=== PATIENT | female | born 1955 | race Caucasian/White ===

== ENCOUNTER 2021-07-01 15:07 | Emergency (ER) | payer BC ==
[~2021-07-01] VITALS: Ht 160 cm; Wt 63.5 kg
[2021-07-01 17:29] LABS: Urine Bacteria MANY /hpf (None Seen); Urine Blood Negative /uL (Negative); Urine Specific Gravity 1.004 (1.001-1.035); Urine WBC 6 /hpf (0 - 5)
[2021-07-01] MEDS ORDERED: TETANUS-DIPTH-ACEL PERTUSSIS 0.5ML SYR Tdap IM ONE (18:45)
[2021-07-01 20:07] LABS: Eosinophils # (auto) 0.1 10 ^3/uL (0-0.8); Hemoglobin 13.8 g/dL (12.2-16.2); Monocytes # (auto) 0.3 10 ^3/uL (0-1.3); Nucleated Red Blood Cells % 0.1 %; Red Blood Cells 3.97 10^6/uL (4.0-5.20)
[2021-07-01 20:09] LABS: Basophils # (auto) 0.3 10 ^3/uL (0-0.2); Basophils % (auto) 5.1 % (0.0-2.0); Eosinophils % (auto) 1.3 % (0.0-7.0); Hematocrit 40.7 % (36.0-46.0); Lymphocytes # (auto) 1.8 10 ^3/uL (0.4-5.4); Lymphocytes % (auto) 30.3 % (10.0-50.0); Mean Corpuscular Hemoglobin 34.8 pg (28.0-32.0); Mean Corpuscular Volume 102.5 fL (80.0-100.0); Monocytes % (auto) 4.9 % (0.0-12.0); Neutrophils # (auto) 3.5 10 ^3/uL (1.6-8.6); Neutrophils % (auto) 58.4 % (37.0-80.0); Red Cell Distribution Width 14.7 % (11.8-14.3); White Blood Cell 5.9 10^3/uL (4.4-10.8)
[2021-07-01 20:24] LABS: Albumin 2.9 g/dL (3.4-5.0); Calcium 9.4 mg/dL (8.5-10.1); Magnesium 2.2 mg/dL (1.6-2.6); Potassium 4.8 mmol/L (3.5-5.1)
[2021-07-01 20:26] LABS: BUN/Creatinine Ratio 12.5
[2021-07-01 20:29] LABS: Bilirubin, Total 0.3 mg/dL (0.2-1.0); Total Protein 6.8 g/dL (6.4-8.2)
[2021-07-01 21:00] VITALS: BP 157/92
[2021-07-01] MEDS ORDERED: cefTRIAXone 1GM/50ML D5W 50 ML IV ONE (21:15)
== END 2021-07-01 22:26 | disposition left against medical advice (07) ==
LOC: EDBD 15:07 → ER 15:20
DX: S01.01XA Laceration without foreign body of scalp, initial encounter (principal); R55 Syncope and collapse; N39.0 Urinary tract infection, site not specified; E78.5 Hyperlipidemia, unspecified; I10 Essential (primary) hypertension; Z53.29 Procedure and treatment not carried out because of patient's decision for other reasons; Z91.040 Latex allergy status; W19.XXXA Unspecified fall, initial encounter; Y93.89 Activity, other specified; Y92.89 Other specified places as the place of occurrence of the external cause; Y99.8 Other external cause status
CPT/HCPCS: 36415; 70450; 71045; 80053; 81001; 83735; 83880; 84484; 85025; 93005

== ENCOUNTER 2021-07-05 13:01 | Emergency (ER) | payer BC ==
[~2021-07-05] VITALS: Ht 157.5 cm; Wt 64.4 kg
[2021-07-05 16:06] LABS: Basophils # (auto) 0.1 10 ^3/uL (0-0.2); Eosinophils # (auto) 0.1 10 ^3/uL (0-0.8); Monocytes # (auto) 0.5 10 ^3/uL (0-1.3); White Blood Cell 6.6 10^3/uL (4.4-10.8)
[2021-07-05 16:07] LABS: Basophils % (auto) 1.7 % (0.0-2.0); Eosinophils % (auto) 1.7 % (0.0-7.0); Hematocrit 41.6 % (36.0-46.0); Hemoglobin 13.7 g/dL (12.2-16.2); Lymphocytes # (auto) 1.8 10 ^3/uL (0.4-5.4); Lymphocytes % (auto) 27.5 % (10.0-50.0); Mean Corpuscular Hemoglobin 33.9 pg (28.0-32.0); Mean Corpuscular Hgb Conc. 32.9 g/dL (32.0-36.0); Monocytes % (auto) 8.3 % (0.0-12.0); Neutrophils % (auto) 60.8 % (37.0-80.0); Red Blood Cells 4.04 10^6/uL (4.0-5.20); Red Cell Distribution Width 14.7 % (11.8-14.3)
[2021-07-05] MEDS ORDERED: MECL25CH38 PO (16:14)
[2021-07-05 16:24] LABS: Albumin 2.8 g/dL (3.4-5.0); BUN/Creatinine Ratio 10.3; Calcium 8.8 mg/dL (8.5-10.1); Potassium 3.7 mmol/L (3.5-5.1)
[2021-07-05 16:26] LABS: Bilirubin, Total 0.4 mg/dL (0.2-1.0); Total Protein 6.5 g/dL (6.4-8.2)
[2021-07-05 17:34] VITALS: BP 119/87
== END 2021-07-05 18:13 | disposition home or self-care (01) ==
LOC: ER 13:05
DX: R42 Dizziness and giddiness (principal); E46 Unspecified protein-calorie malnutrition; I10 Essential (primary) hypertension; E78.5 Hyperlipidemia, unspecified
CPT/HCPCS: 36415; 70450; 80053; 84484; 85025

== ENCOUNTER 2024-05-24 13:51 | Inpatient (IN) | payer MEDICARE, BC ==
[~2024-05-24] VITALS: Ht 162.6 cm; Wt 77.4 kg
[2024-05-24] VITALS (45 sets, daily range): BP systolic 69–261; BP diastolic 26–90; PULSE 87–146; RESP 12–119; TEMP 98.8; O2SAT 61–98
[~2024-05-24 13:51] MED LIST: MECL25CH38 PO
[2024-05-24] MEDS ORDERED: PIPERACILLIN-TAZOB 3.375GM 100 ML IV ONE (14:30)
[2024-05-24] MEDS ORDERED: SODIUM CHLORIDE 0.9% 1,000 ML IV ONE (14:30)
--- NOTE | 2024-05-24 14:34 | ED.PDOC ---
History of Present Illness HPI Comments 68Y F with PMHx HTN, HLD, asthma, chronic back pain, glaucoma, and cataracts presents to ED via EMS for chief complaint syncope. Additional symptoms include dizziness, worsening blurry vision, and nausea. Pt states dizziness is worsened when eyes are closed. Pt states she felt dizzy while on her way to the bathroom and then fell and hit her head. Per son, -LOC. Pt denies chest pain, SOB, and cough. Pt states she is eating and drinking normally. No other symptoms reported. Chief Complaint: Syncope Time Seen by MD: 14:15 Primary Care Provider: BROOKS Reviewed Notes: Nurses Notes, Plywood And Veneer Repairer Notes, Medications, Allergies Allergies: Coded Allergies: Amoxicillin (Verified Allergy, Unknown, 05/24/24) Latex (Verified Allergy, Unknown, 07/01/21) Home Meds Active Scripts Meclizine HCl (Meclizine) 25 Mg Chw, 25 MG PO DAILY for 10 Days, #10 CHW Prov:TRE PHILIPPE MD 07/05/21 Reported Medications Brimonidine Tartrate (Brimonidine Tartrate) 0.15 % Analilia, 1 DROP OP TID, DROP 05/24/24 Omeprazole (Gnp Omeprazole) 20 Mg Tab, 1 TAB PO DAILY, #90 TAB 1 Refill 05/24/24 Travoprost (Travatan Z) 0.004 % Damián, 1 DROP EACHEYE QPM, #2.5 ML 2 Refills 05/24/24 Metoprolol Succinate (Metoprolol Succinate Er) 50 Mg Tab, 50 MG PO DAILY for 30 Days, MG 05/24/24 Atorvastatin Calcium (Lipitor) 10 Mg Tab, 1 TAB PO DAILY, #30 TAB 5 Refills 05/24/24 Venlafaxine Hydrochloride (Venlafaxine Hcl) 75 Mg Tab, 75 MG PO DAILY, TAB 05/24/24 Levothyroxine Sodium (Levothyroxine Sodium) 50 Mcg Tab, 75 MCG PO QAM for 30 Days, MCG 05/24/24 Hydrochlorothiazide (Hydrochlorothiazide) 25 Mg Tab, 25 MG PO DAILY for 30 Days, MG 05/24/24 Information Source: Patient, Relative (Child), Emergency Med Personnel Mode of Arrival: EMS Severity: Mild Timing: Hours Duration: Since onset Prehospital treatment: None Past Medical History PAST MEDICAL HISTORY: Asthma, High Lipids, HTN, Thyroid Surgical History: Denies all surgeries AUTOMOTIVE SERVICE CASHIER History: No Pertinent AUTOMOTIVE SERVICE CASHIER History Family History Family History: Reviewed,noncontributory to illness Social History Smoker: Non-Smoker Alcohol: Heavy Drugs: Denies Drug Use Lives In: Home Constitutional: denies: chills, diaphoresis, fatigue, fever, malaise, sweats, weakness, others EENTM: reports: blurred vision; denies: double vision, ear bleeding, ear discharge, ear drainage, ear pain, ear ringing, eye pain, eye redness, hearing loss, mouth pain, mouth swelling, nasal discharge, nose bleeding, nose congestion, nose pain, photophobia, tearing, throat pain, throat swelling, voice changes, others Respiratory: denies: cough, hemoptysis, orthopnea, SOB at rest, shortness of breath, SOB with excertion, stridor, wheezing, others Cardiovascular: denies: chest pain, dizzy spells, diaphoresis, Dyspnea on exertion, edema, irregular heart beat, left arm pain, lightheadedness, palpitations, PND, syncope, others Gastrointestinal: denies: abdomen distended, abdominal pain, blood streaked bowels, constipated, diarrhea, dysphagia, difficulty swallowing, hematemesis, melena, nausea, poor appetite, poor fluid intake, rectal bleeding, rectal pain, vomiting, others Genitourinary: denies: abnormal vagina bleeding, burning, dyspareunia, dysuria, flank pain, frequency, hematuria, incontinence, pain, , vagina discharge, urgency, others Neurological: reports: dizziness, fainting; denies: headache, left sided numbness, left sided weakness, numbness, paresthesia, pre-existing deficit, right sided numbness, right sided weakness, seizure, speech problems, tingling, tremors, weakness, others Musculoskeletal: denies: back pain, gout, joint pain, joint swelling, muscle pain, muscle stiffness, neck pain, others Integumetry: denies: bruises, change in color, change in hair/nails, dryness, laceration, lesions, lumps, rash, wounds, others Allergic/Immunocompromised: denies: Difficulty Healing, Frequent Infections, Hives, Itching, others Hematologic/Lymphatic: denies: anemia, blood clots, easy bleeding, easy bruising, swollen glands, others Endocrine: denies: excessive hunger, excessive sweating, excessive thirst, excessive urination, flushing, intolerance to cold, intolerance to heat, unexplained weight gain, unexplained weight loss, others Psychiatric: denies: anxiety, bipolar disorder, depression, hopeless, panic disorder, schizophrenia, sleepless, suicidal, others All Other Systems: Reviewed and Negative Physical Exam General Appearance: No Apparent Distress, Normal HEENT: Normal ENT Inspection, Pharynx Normal, TMs Normal Neck: Full Range of Motion, Non-Tender, Normal, Normal Inspection Respiratory: Chest Non-Tender, Lungs Clear, No Accessory Muscle Use, No Respiratory Distress, Normal Breath Sounds Cardiovascular: No Edema, No Murmur, No Gallop, Normal Peripheral Pulses, Regular Rate/Rhythm Breast Exam: Deferred Gastrointestinal: Diffuse, No Organomegaly, Soft, Tenderness Genitalia: Deferred Pelvic: Deferred Rectal: Deferred Extremities: No calf tenderness, Normal capillary refill, Normal inspection, Normal range of motion, Non-tender, No pedal edema Musculoskeletal : Apperance: Normal Neurologic: Alert, information resources manager II-XII nml as Tested, No Motor Deficits, Normal Affect, Normal Mood, No Sensory Deficits Cerebellar Function: NOT DONE Reflexes: NOT DONE Skin: Dry, Normal Color, Warm Lymphatic: NOT DONE Was a procedure done? Was a procedure done?: Yes Sedation Sedation?: No Sedation start time: 21:15 Intubation Indication: Respiratory Insufficiency Medicated with: Other (Rocuronium) Intubation Approach: Orotracheal Informed consent obtained: No Risks/benefits/alt described: No EKG EKG : Pulse Rate (adult): 88 Comments sinus rhythm, low voltage with right axis deviation, borderline prolonged QT interval Differential Dx Considerations may include: syncope X-Ray, Labs, Meds, VS Vital Signs Date Time Temp Pulse Resp B/P (MAP) Pulse Ox O2 Delivery O2 Flow Rate FiO2 05/24/24 17:05 137/66 05/24/24 17:00 106 15 121/73 (89) 92 05/24/24 16:45 118/57 05/24/24 16:45 105 26 118/57 (77) 90 05/24/24 16:25 107/50 05/24/24 16:20 85/52 05/24/24 16:15 80/47 05/24/24 16:05 90/51 05/24/24 16:05 96 27 90/51 (64) 90 05/24/24 16:00 96.7 95 25 81/45 (57) 90 96.7 05/24/24 16:00 94 05/24/24 15:56 73/40 05/24/24 15:50 95 26 75/45 (55) 91 05/24/24 15:40 94 28 72/49 (57) 91 05/24/24 15:35 94 25 71/48 (56) 92 05/24/24 15:30 94 27 73/55 (61) 91 05/24/24 15:25 94 26 83/51 (62) 92 05/24/24 15:20 91 21 74/48 (57) 92 05/24/24 15:17 88 05/24/24 15:15 94 26 57/34 (42) 92 05/24/24 15:05 96.5 97 30 59/41 (47) 94 96.5 05/24/24 15:05 97 30 94 Room Air* 0 21 05/24/24 15:00 93 29 73/45 (54) 92 05/24/24 14:25 96.5 97 30 59/41 (47) 94 96.5 05/24/24 14:06 98.6 92 18 115/69 (84) 100 98.6 05/24/24 13:57 88 Lab Test 05/24/24 16:45 05/24/24 14:50 Range/Units White Blood Count 2.0 L 4.4-10.8 10^3/uL Red Blood Count 3.68 L 4.0-5.20 10^6/uL Hemoglobin 12.9 12.2-16.2 g/dL Hematocrit 40.5 36.0-46.0 % Mean Corpuscular Volume 110.0 H 80.0-100.0 fL Mean Corpuscular Hemoglobin 35.2 H 28.0-32.0 pg Mean Corpuscular Hemoglobin Concent 32.0 32.0-36.0 g/dL Red Cell Distribution Width 14.9 H 11.8-14.3 % Platelet Count 216 140-450 10^3/uL Mean Platelet Volume 8.5 6.9-10.8 fL Neutrophils (%) (Auto) 37.0-80.0 % Lymphocytes (%) (Auto) 10.0-50.0 % Monocytes (%) (Auto) 0.0-12.0 % Basophils (%) (Auto) 0.0-2.0 % Neutrophils # (Auto) 1.6-8.6 10 ^3/uL Lymphocytes # (Auto) 0.4-5.4 10 ^3/uL Monocytes # (Auto) 0-1.3 10 ^3/uL Differential Total Cells Counted 100.0 100 Neutrophils % (Manual) 48 37.0-80.0 Band Neutrophils % (Manual) 1 Lymphocytes % (Manual) 37 10.0-50.0 Monocytes % (Manual) 14 H 0-12 Eosinophils % (Manual) 0 0-7 Basophils % (Manual) 0 0.0-2.0 Metamyelocytes % (manual) 0 Myelocytes % (Manual) 0 Promyelocytes % (Manual) 0 Blast Cells % (Manual) 0 Reactive Lymphocytes 0 Platelet Estimate Adequa Large Platelets Few B-Type Natriuretic Peptide 524.97 0-100 pg/mL Prothrombin Time 11.7 9.3-11.8 sec Prothrombin Time INR 1.12 0.9-1.15 Activated Partial Thromboplast Time 26.9 24.5-34.5 SEC D-Dimer, Quantitative 6.03 H 0.0-0.49 mg/L FEU Sodium Level 140 136-145 mmol/L Potassium Level 3.3 L 3.5-5.1 mmol/L Chloride Level 108 H 98-107 mmol/L Carbon Dioxide Level 11 L 20-31 mmol/L Anion Gap 21 H 5-15 Blood Urea Nitrogen 12 9-23 mg/dL Creatinine 1.19 H 0.550-1.02 mg/dL Glomerular Filtration Rate Calc 50 >90 mL/min BUN/Creatinine Ratio 10.1 10.0-20.0 Serum Glucose 116 H 74-106 mg/dL Lactic Acid Level 9.6 *H 0.4-2.0 mmol/L Calcium Level 8.6 L 8.7-10.4 mg/dL Magnesium Level 1.5 L 1.6-2.6 mg/dL Total Bilirubin 2.7 H 0.2-1.0 mg/dL Aspartate Amino Transferase (AST) 1400 H 13-40 U/L Alanine Aminotransferase (ALT) 428 H 7-40 U/L Alkaline Phosphatase 213 H 46-116 U/L Lactate Dehydrogenase 954 H 120-246 U/L Troponin I High Sensitivity 34 </=34 ng/L Total Protein 4.9 L 5.7-8.2 g/dL Albumin 2.9 L 3.2-4.8 g/dL Amylase Level 238 H 30-118 U/L Lipase 648 H 12-53 U/L Current Medications Medications (Trade) Dose Ordered Sig/Saji Route Start Time Stop Time Status Last Admin Ondansetron HCl (Zofran) 4 mg ONCE ONCE IV 05/24/24 14:30 05/24/24 14:31 DC 05/24/24 14:38 Sodium Chloride 1,650 ml @ 1,650 mls/hr ONCE ONCE IV 05/24/24 14:45 05/24/24 15:44 DC 05/24/24 14:38 Piperacillin Sod/ Tazobactam Sod 100 ml @ 25 mls/hr ONCE ONCE IV 05/24/24 14:45 05/24/24 18:44 DC 05/24/24 14:55 Sodium Chloride 2,000 ml @ 1,000 mls/hr Q2H ONCE IV 05/24/24 15:45 05/24/24 17:44 DC 05/24/24 15:39 Norepinephrine Bitartrate 250 ml @ 3.75 mls/hr Q24H IV 05/24/24 15:45 05/25/24 01:19 [place] [address] Ph: [phone] DIAGNOSTIC IMAGING Diagnostic Imaging Report : [id number] Signed PATIENT: BRI FLORES ACCT: [id number] UNIT: [id number] : 1955 LOC: ER ROOM / BED: / AGE / SEX: 68 / F ADM STATUS: REG ER SERVICE 1424 ORDERING PHYSICIAN: ONELIA OLSEN MD PROCEDURE(s): CXRP - CHEST PORTABLE REASON: sob ORDER NUMBER(s): [id number], ACCESSION NUMBER(s): [id number] EXAM: XY CHEST PORTABLE TECHNIQUE: Single frontal chest radiograph CLINICAL HISTORY: sob COMPARISON: CHEST PORTABLE on DOS: 07/01/21, CXRP on DOS: 07/01/21 Findings/Impression: Frontal chest radiograph demonstrates no acute osseous or superficial soft tissue abnormalities. The trachea is midline. The cardiac silhouette and mediastinum are within normal limits. Low lung volumes with bronchovascular crowding. No pneumothorax, pleural effusions, or consolidations. ATED BY: SAMMI DAMON DO DICTATED DATE/TIME: 05/24/241447 SIGNED BY: SAMMI DAMON DO SIGNED DATE/TIME: 05/24/241447 CC: At 9:10 p.m. the patient was found in the bathroom after a syncope episode. Craig feng was called and subsequently I intubated the patient using a 6.5 endotracheal tube and glide scope. Positive end-tidal CO2 and positive chest rise and fall and an increase of SpO2 to 100% with a successful intubation. Dr. Sequeira. X-Ray, Labs, Meds, VS Comment This 68-year-old female presents to emergency room secondary to fainting. She states she has had a several day history of abdominal discomfort and diarrhea. Today, while walking to the restroom, she will begin faint. Her son helped her to the ground. She states she woke up and, appears to not have been postictal. She presents here. Here, the patient complains of generalized abdominal discomfort and her chronic back pain. Review of the chart shows she has a history of chronic alcohol abuse. Her labs have multiple abnormalities strongly suggestive of acute pancreatitis. Time of 1ST Reevaluation: 14:45 Reevaluation 1ST: Unchanged Patient Education/Counseling: Diagnosis, Treatment Family Education/Counseling: No Family Present Critical Care Note Critical Care Time?: Yes (55 min-critical care time only) Critical care comment: Total critical care time: Approximately 57 minutes Due to a high probability of clinically significant, life threatening deterioration, the patient required my highest level of preparedness to intervene emergently and I personally spent this critical care time directly and personally managing the patient. This critical care time included obtaining a history; examining the patient; pulse oximetry; ordering and review of studies; arranging urgent treatment with development of a management plan; evaluation of patient's response to treatment; frequent reassessment; and, discussions with other providers. This critical care time was performed to assess and manage the high probability of imminent, life-threatening deterioration that could result in multi-organ failure. It was exclusive of separately billable procedures and treating other patients and teaching time. Please see MDM section and the rest of the note for further information on patient assessment and treatment. Stability Stability form required: No Heart Score Heart Score: Heart Score Response (Comments) Value History N/A 0 EKG N/A 0 Age N/A 0 Risk Factors N/A 0 Troponin N/A 0 Total 0 I personally scribed for ONELIA OLSEN MD ([email or web address]) on 05/24/24 at 14:34. Electronically submitted by Sarah Farris ([employer]). I personally scribed for ONELIA OLSEN MD ([facility]) on 05/24/24 at 15:00. Electronically submitted by Sarah Farris ([employer]). I personally scribed for ONELIA OLSEN MD ([facility]) on 05/24/24 at 15:17. Electronically submitted by Sarah Farris ([employer]). ONELIA OLSEN MD May 24, 2024 14:34 ALYSSA SEQUEIRA MD May 25, 2024 01:37
[2024-05-24] MEDS: ONDANSETRON HCL 4 MG/2 ML VIAL IV ONE (14:38)
[2024-05-24] MEDS: SODIUM CHLORIDE 0.9% 1,650 ML IV ONE (14:38)
--- NOTE | 2024-05-24 14:50 | DVH ---
EXAM: XY CHEST PORTABLE TECHNIQUE: Single frontal chest radiograph CLINICAL HISTORY: sob COMPARISON: CHEST PORTABLE on DOS: 07/01/21, CXRP on DOS: 07/01/21 Findings/Impression: Frontal chest radiograph demonstrates no acute osseous or superficial soft tissue abnormalities. The trachea is midline. The cardiac silhouette and mediastinum are within normal limits. Low lung volumes with bronchovascular crowding. No pneumothorax, pleural effusions, or consolidations.
[2024-05-24] MEDS: PIPERACILLIN-TAZOB 3.375GM 100 ML IV ONE (14:55)
[2024-05-24] MEDS: SODIUM CHLORIDE 0.9% 2,000 ML IV ONE (15:39)
[2024-05-24 15:45] LABS: Anion Gap 21 (5-15); BUN/Creatinine Ratio 10.1 (10.0-20.0); Blood Urea Nitrogen 12 mg/dL (9-23); Sodium 140 mmol/L (136-145)
[2024-05-24 15:49] LABS: Alanine Aminotransferase 428 U/L (7-40); Alkaline Phosphatase 213 U/L (46-116); Calcium 8.6 mg/dL (8.7-10.4); Carbon Dioxide 11 mmol/L (20-31); Chloride 108 mmol/L (98-107); Glucose 116 mg/dL (74-106); Potassium 3.3 mmol/L (3.5-5.1)
[2024-05-24 15:50] LABS: Albumin 2.9 g/dL (3.2-4.8); Bilirubin, Total 2.7 mg/dL (0.2-1.0); INR 1.12 (0.9-1.15); Partial Thromboplastin Time 26.9 SEC (24.5-34.5); Prothrombin Time 11.7 sec (9.3-11.8); Total Protein 4.9 g/dL (5.7-8.2)
[2024-05-24] MEDS: NOREPINEPHRINE 8 MG/250ML KIT 250 ML IV SCH (15:56)
[2024-05-24 15:57] LABS: Aspartate Aminotransferase 1400 U/L (13-40)
[2024-05-24 16:06] LABS: Amylase 238 U/L (30-118); Lipase 648 U/L (12-53)
[2024-05-24 16:10] LABS: Lactic Acid w/Reflex 9.6 mmol/L (0.4-2.0)
[2024-05-24 17:14] LABS: Hemoglobin 12.9 g/dL (12.2-16.2)
[2024-05-24] MEDS ORDERED: ONDANSETRON HCL 4 MG/2 ML VIAL IV PRN (17:15)
[2024-05-24] MEDS ORDERED: ACETAMINOPHEN 325 MG TAB PO PRN (17:15)
[2024-05-24 17:21] LABS: Hematocrit 40.5 % (36.0-46.0); Mean Corpuscular Hemoglobin 35.2 pg (28.0-32.0); Platelet Count (auto) 216 10^3/uL (140-450); Red Blood Cells 3.68 10^6/uL (4.0-5.20); Red Cell Distribution Width 14.9 % (11.8-14.3)
[2024-05-24 17:32] LABS: Basophils % (manual) 0 (0.0-2.0); Blast Cells 0; Eosinophils % (manual) 0 (0-7); Metamyelocytes % 0; Myelocytes % 0; Promyelocytes % 0; Reactive Lymphocytes 0
--- NOTE | 2024-05-24 17:38 | DVHHP2 ---
History of Present Illness Reason for Visit: Syncopal episode History of Present Illness Jasmyn Mackay is a 68-year-old female with past medical history of hypertension, hyperlipidemia, asthma, chronic back pain, glaucoma, cataracts, fibromyalgia, eyelid surgery, herniated disc, and C-sections who presents to the ED for syncopal episode with nausea, vomiting, diarrhea, blurry vision, and dizziness x2 days. Patient reports today she fell 3 times on her buttocks with no complaints of pain there. Patient reports that the blurry vision is still present. Patient's spouse at the bedside Cricket was unaware that the patient fell 3 times today on her buttocks. The nurse reports that there was an assisted to the ground fall with no head strike or loss of consciousness. Patient denies any chest pain, shortness of breath, fever, chills, lightheadedness, weakness, recent sick contacts, or recent ingestion of spoiled food. Cardiovascular: HTN, hyperipidemia Pulmonary: Asthma Past Medical History Chronic back pain Glaucoma Cataracts Herniated disc Fibromyalgia Past Surgical History: , Other (Eyelid surgery ) Family History: DM, Other (Mom with diabetes) Smoke: No ALCOHOL: none Drugs: None Lives: with Family Domestic Violence: Neg Review of Systems Constitutional: Yes: Other (Syncope) Eyes: Vision change, Other (Blurry vision) Gastrointestinal: Nausea, Vomiting, Diarrhea Allergies: Coded Allergies: Amoxicillin (Verified Allergy, Unknown, 05/24/24) Latex (Verified Allergy, Unknown, 07/01/21) Medications Current Medications Medications Dose Ordered Sig/Saji Route Start Time Stop Time Status Last Admin Dose Admin Folic Acid 1 mg/ Multivitamins 10 ml/Magnesium Sulfate 8 meq/ Thiamine HCl 100 mg/Dextrose 1,013.2 ml @ 125.001 mls/hr DAILY@1800 INJ 05/24/24 18:00 Norepinephrine Bitartrate 250 ml @ 3.75 mls/hr Q24H IV 05/24/24 15:45 05/24/24 15:56 3.75 MLS/HR Potassium Chloride 100 ml @ 50 mls/hr Q2H IV 05/24/24 17:15 05/24/24 21:14 UNV Ondansetron HCl 4 mg Q4HP PRN IV 05/24/24 17:15 UNV Acetaminophen 650 mg Q6HP PRN PO 05/24/24 17:15 UNV Piperacillin Sod/ Tazobactam Sod 100 ml @ 25 mls/hr Q8HR IV 05/24/24 22:00 UNV Exam Vital Signs Vital Signs Date Time Temp Pulse Resp B/P (MAP) Pulse Ox O2 Delivery O2 Flow Rate FiO2 05/24/24 17:05 137/66 05/24/24 17:00 106 15 92 05/24/24 16:00 96.7 96.7 05/24/24 15:05 Room Air* 0 21 General Appearance: Alert, Oriented X3, Cooperative HEENT: Atraumatic, PERRLA, EOMI, Mucous membr. moist/pink Respiratory: Normal air movement Cardiovascular: Normal S1, Normal S2 Abdominal: Soft, No tenderness, No hepatospenomegaly Extremities: No cyanosis, No edema, Normal pulses Skin: No significant lesion Neuro: Normal speech, Normal tone, Sensation intact Psych/Mental Status: Mental status NL, Mood NL Labs/Xrays Labs Test 05/24/24 16:45 05/24/24 14:50 Range/Units Prothrombin Time 11.7 9.3-11.8 sec Prothrombin Time INR 1.12 0.9-1.15 Activated Partial Thromboplast Time 26.9 24.5-34.5 SEC D-Dimer, Quantitative 6.03 H 0.0-0.49 mg/L FEU Sodium Level 140 136-145 mmol/L Potassium Level 3.3 L 3.5-5.1 mmol/L Chloride Level 108 H 98-107 mmol/L Carbon Dioxide Level 11 L 20-31 mmol/L Anion Gap 21 H 5-15 Blood Urea Nitrogen 12 9-23 mg/dL Creatinine 1.19 H 0.550-1.02 mg/dL Glomerular Filtration Rate Calc 50 >90 mL/min BUN/Creatinine Ratio 10.1 10.0-20.0 Serum Glucose 116 H 74-106 mg/dL Lactic Acid Level 9.6 *H 0.4-2.0 mmol/L Calcium Level 8.6 L 8.7-10.4 mg/dL Total Bilirubin 2.7 H 0.2-1.0 mg/dL Aspartate Amino Transferase (AST) 1400 H 13-40 U/L Alanine Aminotransferase (ALT) 428 H 7-40 U/L Alkaline Phosphatase 213 H 46-116 U/L Lactate Dehydrogenase 954 H 120-246 U/L Troponin I High Sensitivity 34 </=34 ng/L Total Protein 4.9 L 5.7-8.2 g/dL Albumin 2.9 L 3.2-4.8 g/dL Amylase Level 238 H 30-118 U/L Lipase 648 H 12-53 U/L EXAM: XY CHEST PORTABLE TECHNIQUE: Single frontal chest radiograph CLINICAL HISTORY: sob COMPARISON: CHEST PORTABLE on DOS: 07/01/21, CXRP on DOS: 07/01/21 Findings/Impression: Frontal chest radiograph demonstrates no acute osseous or superficial soft tissue abnormalities. The trachea is midline. The cardiac silhouette and mediastinum are within normal limits. Low lung volumes with bronchovascular crowding. No pneumothorax, pleural effusions, or consolidations. Assessment/Plan Assessment/Plan Assessment Autonomic instability Intractable nausea, vomiting, and diarrhea Blurry vision Dizziness Hypokalemia Elevated D-dimer DEMIAN Transaminitis Rule out pancreatitis History of hypertension History of hyperlipidemia History of asthma History of chronic back pain History of glaucoma History of cataracts History of fibromyalgia History of herniated disc History of eyelid surgery History of C-sections Plan Admit to ICU Vasopressors to keep map greater than 65 Replete lytes Flu test IV fluids IV antibiotics-Zosyn CT abdomen and pelvis EKG Troponins Blood cultures Lactic LDH Amylase Lipase Antiemetics Pain management Chest x-ray D-dimer PT/PTT BNP CTA chest Home medications to be reconciled once medication list available Discussed plan of care with patient, patient's spouse, and nurse DVT prophylaxis-Lovenox PUD prophylaxis-Protonix GI consult Plan discussed with: Patient, Spouse My Orders Orders - MARIUM WESTFALL BARREL DEDENTING MACHINE OPERATOR Procedure Category Date Status Time Potassium Chl PHA 05/24/24 Logged 20meq/100ml 17:15 Magnesium LAB 05/24/24 Logged 17:[address] 05/24/24 Logged Contrast 17:12 Admit ADMIT 05/24/24 Transmitted 17:12 Allergies DILAN 05/24/24 In Process 17:12 Code Status CODE 05/24/24 Transmitted 17:12 Ondansetron Hcl PHA 05/24/24 Logged (Zofran) 17:15 Complete Blood Count LAB 05/25/24 Verified 04:00 Comprehensive LAB 05/25/24 Verified Metabolic Panel 04:00 Cardiac DIET 05/24/24 Transmitted Diet-2gna,Lofat,Lochol Dinner Acetaminophen Tablet PHA 05/24/24 Logged (Tylenol Tablet) 17:15 * Gi Dvh Fretted Instruments Inspector CONS 05/24/24 Transmitted 17:27 Piperacillin-Tazob PHA 05/24/24 Logged 3.375gm (Zosyn 3.375g 22:00 Date of Service: May 24, 2024 Billing Provider: MARIUM WESTFALL Common Visit Codes: [id number] INP/OBS CARE (HIGH) MARIUM WESTFALL May 24, 2024 17:38
--- NOTE | 2024-05-24 17:57 | DVH ---
EXAM: CT HEAD WITHOUT CONTRAST INDICATION: syncope TECHNIQUE: CT of the head without intravenous contrast. Radiation Dose Information: CT Dose: CTDI volume is 54.28 mGy. Dose-length product is 960.89 mGy*cm The dose indicators for CT are the volume Computed Tomography (CT) Dose Index (CTDIvol) and the Dose Length Product (DLP), and are measured in units of mGy and mGy-cm, respectively. These indicators are not patient dose, but values generated from the CT scanner acquisition factors. The report includes radiation exposure data for exposures received during this examination. COMPARISON: HEAD WITHOUT CONTRAST on DOS: 07/05/21, HEAD WITHOUT CONTRAST on DOS: 07/01/21 FINDINGS: There is no evidence of acute intracranial hemorrhage, extra-axial collection, mass effect, midline s hift, herniation or hydrocephalus. The ventricles, sulci and cisterns are age appropriate. The norris-white differentiation is intact. Patchy periventricular and subcortical white matter hypoattenuation is nonspecific but may be related to small vessel ischemic disease. The visualized paranasal sinuses and mastoid air cells are clear. The surrounding soft tissues and osseous structures are unremarkable. IMPRESSION: 1. No acute intracranial hemorrhage 2. No CT findings of territorial ischemia. 3. No CT findings of displaced skull fracture. HS:Y
[2024-05-24] MEDS: IOHEXOL 350 MG/ML 100ML IJ ONE (17:59)
[2024-05-24] MEDS ORDERED: HYDROcodone-ACET 5/325MG TAB PO PRN (18:00)
[2024-05-24 18:01] LABS: Band Neutrophils % (manual) 1; Lymphocytes % (manual) 37 (10.0-50.0); Monocytes % (manual) 14 (0-12)
[2024-05-24 18:02] LABS: Large Platelets FEW; Platelet Estimate Adequa
[2024-05-24] MEDS ORDERED: POTASSIUM CHL 20MEQ/50ML 50 ML IV SCH (18:15)
[2024-05-24] MEDS: SODIUM CHLORIDE 0.9% 1,000 ML IV SCH (18:33)
--- NOTE | 2024-05-24 18:34 | DVH ---
Exam: CT CT CHEST/AB/PL W CON- IV ONLY History: R/O PE - abd pain Comparison Study: None available at time of dictation. Contrast: Type of contrast: Opaque 350 Contrast injected: 70 mL Contrast wasted: 0 TECHNIQUE: A digital director radio image was obtained. During the uneventful, intravenous administration of c ontrast material, multislice data acquisition was obtained through the abdomen and pelvis. The data s et was subsequently reconstructed into axial images. Images were reviewed on a work station using a c ombination of axial and multiplanar using a variety of window levels and settings. Radiation Dose Information: CT Dose: CTDI volume is 5.92 mGy. Dose-length product is 1723.29 mGy*cm FINDINGS: Lung Bases: No findings of pulmonary artery emboli or pulmonary artery hypertension. Bibasilar areas of atelectasis and small pleural effusions are noted.. Normal heart size. No pleural or pericardial effusion. Liver: The liver is normal in size. No focal lesions. Normal hepatic vascular enhancement. Gallbladder and Biliary Tree: Mild thickening of the gallbladder wall pericholecystic fluid. Spleen: Unremarkable Pancreas: The pancreas is normal in appearance without focal lesions or abnormal enhancement. Adrenal Glands: Unremarkable Kidneys: Kidneys demonstrate normal symmetric enhancement without focal lesions, calculi or hydroneph rosis. Bladder: Unremarkable Bowel: The stomach is grossly normal in appearance. Mucosal thickening of the wall of the colon and s mall bowel most likely representing colitis correlate clinical findings.. The appendix is not visuali zed; however, no secondary findings of acute appendicitis identified. Ascites: Small to moderate amount of ascites Lymphadenopathy: No mesenteric, retroperitoneal or periportal lymphadenopathy. Abdominal Wall and Mesentery: Unremarkable. Vasculature: The visualized abdominal aorta is normal in size and caliber. Abdominal and pelvic vess els demonstrate normal enhancement. Pelvic Organs: Unremarkable Musculoskeletal: No aggressive focal bony lesions, acute fractures or dislocation. Soft tissues: Unremarkable. IMPRESSION: 1. No pulmonary embolus or pulmonary artery hypertension. 2. Bibasilar areas of atelectasis and small pleural effusions. 3. Ascites 4. Pericholecystic fluid 5. Mucosal thickening of the colon and small bowel may represent jimenez colitis. 6. Superior mesenteric artery appears opacified. 7. Abdominal aorta is opacified as are the iliac vessels. 8. Celiac superior mesenteric and renal arteries contain contrast. All CT scans at this medical facility are performed using dose modulation techniques as appropriate t o a performed exam including the following: Automated exposure control was utilized; adjustment of th e MA and/or KV according to patient size; and use of iterative reconstruction technique. HS:Y
--- NOTE | 2024-05-24 19:36 | ECG ---
[facility] Test Date: 2024-05-24 Test Time: 13:57:12 Pat Name: BRI FLORES Department: ED Room: [address] [place] [address] Gender: F [employer]ysty[employer] Molding Machine Tender: kayy : 1955 Requested By: EMERGENCY EMERGENCY Order Number: [id number] Reading MD: Marck Morse Measurements Intervals [place] Rate: 88 P: 71 KS: 180 QRS: 87 QRSD: 81 T: 33 QT: 412 QTc: 499 Interpretive Statements Sinus rhythm Low voltage with right axis deviation Borderline prolonged QT interval Electronically Signed On 05-29-2024 21:09:08 PDT by Marck Morse Please click the below link to view image of tracing.
[2024-05-24] MEDS ORDERED: OMEP20TA PO (20:54)
[2024-05-24] MEDS ORDERED: VENL1TAB99 PO (20:54)
[2024-05-24] MEDS ORDERED: HYDR25TA4 PO (20:54)
[2024-05-24] MEDS ORDERED: ATOR10TA PO (20:54)
[2024-05-24] MEDS ORDERED: METO-289 PO (20:54)
[2024-05-24] MEDS ORDERED: LEVO50TA7 PO (20:54)
[2024-05-24] MEDS ORDERED: TRAV0.00 EACHEYE (20:54)
[2024-05-24] MEDS ORDERED: BRIM0.159 OP (20:54)
[2024-05-24] MEDS: ROCURONIUM 10MG/ML 10ML VIAL IV ONE ×2 (21:25→21:30)
[2024-05-24] MEDS: MAGNESIUM SULFATE 1GM/100ML 100 ML IV ONE ×2 (21:29→22:28)
[2024-05-24] MEDS: PROPOFOL 100 ML IV ONE (21:35)
[2024-05-24] MEDS: POTASSIUM CHL 20MEQ/50ML 50 ML IV ONE (21:35)
[2024-05-24] MEDS: MIDAZOLAM DRIP 50 mg/50mL 50 ML IV ONE (21:35)
--- NOTE | 2024-05-24 21:39 | RESUS ---
BETTY FENG ASSESSSMENT History of Events History of Events: Pt admitted as ICU status for syncopal episode rule out PE on 05/24/24. Assisted to bathroom by when alerted staff that pt was passed out on toilet. Pulses check and no palpable pulse. Betty feng called. Initial Information Date: May 24, 2024 Time: 21:10 Location of Arrest: ER Arrest Witnessed: Yes CPR started initial time: 21:10 CPR started by whom: Hospital Staff Last seen well: 2104 Pre-Hospital Care: Pre-Code Care (inpatient) Type of arrest: Cardiac, Respiratory, Adult, Witnessed Spontaneous Respirations: No Pulse Present: No Monitoring: ECG, Pulse Oximetry, Telemetry Crash Cart Opened and Supplies: Yes Airway Ventilation Breathing at Onset: Assisted Oxygen Delivery Method: Ambu-Bag Time of first Assisted Ventila: 21:10 Artificial Ventilation: Bag/Mask Intubation Time: 21:19 Intubation Size: 6.5 cuffed Intubated by: Dr Huang Intubation Attempts: 2 Intubated orally: Yes Intubated Nasaly: No Cricoid pressure done: Yes CO2 indicator used: Yes Confirmation: Auscultation, Exhaled CO2 Suctioning (Oral/Tracheal): Yes Comments: 1st attempt @ 2113, unsuccessful Circulation Circulation #1: Time: 21:10 Pulse Rate (adult): 0 Blood Pressure Systolic: 0 Blood Pressure Diastolic: 0 Temperature (Fahrenheit): 99 (F, rectal) Circulation #2: Time: 21:12 Pulse Rate (adult): 0 Blood Pressure Systolic: 0 Blood Pressure Diastolic: 0 Circulation Comment: Asystole Circulation #3: Time: 21:14 Pulse Rate (adult): 0 Blood Pressure Systolic: 0 Blood Pressure Diastolic: 0 Circulation Comment: Asystole Circulation #4: Time: 21:16 Pulse Rate (adult): 149 Blood Pressure Systolic: 261 Blood Pressure Diastolic: 90 Circulation Comment: ROSC Circulation #5: Time: 21:28 Pulse Rate (adult): 133 Blood Pressure Systolic: 219 Blood Pressure Diastolic: 57 Procedure - IV Procedure - IV #1: IV Side: Right IV Location: Antecubital IV Catheter Type: Saline Lock IV Placed: In Hospital IV Gauge: 20 Comment Placed prior to code Procedure - IV #2: IV Side: Left IV Location: Forarm Posterior IV Catheter Type: Saline Lock IV Placed: In Hospital IV Gauge: 20 IV Line Care: Saline Flush Comment Placed prior to code Medications & Response Medications and Responses : Medication Time: 21:13 ADULT Medications Given ADULT: Epinephrine 1 mg Route of Administration: IV Heart Rate: 0 EKG Rhythm: Asystole Blood Pressure Systolic: 0 Blood Pressure Diastolic: 0 Respiratory Rate: 0 Nurses Notes Shon Coma Scale Eye Opening: None (1) Shon Coma Scale Verbal: None (1) Shon Coma Scale Motor: None (1) Glascow Total: 3 Pupil Reaction: Non Reactive Bedside Blood Glucose: 75 EKG Rhythm: Sinus Tachycardia (HR 111 @ 2119) Time Code Ended Time Code Ended: 21:16 Post Arrest Status: Ventilated Outcome of code: Successful Family notified: Yes Code Team Present: Dr Huang - ER MD; Curtis Thurston RN - ER Charge; Rachel Mesa RN - cold working supervisor; Yogi Thurston RN - Primary RN; Alberta Thurston, RT; Favian Mesa, RN; Susana Stanton, RN; Ramin Richardson, ERT; Earle Lo, ERT; Nicole Stanton, ERT Post Resuscitation Neurologica Pupil Size: 6 Comment: Non-reactive ROSC Time of ROSC: 21:16 Pt Meets Criteria for Therapeu: Yes Rachel Hinton May 24, 2024 21:39
[2024-05-24] MEDS: PHENYLEPHRINE IV 250 ML IV SCH (21:40)
[2024-05-24] MEDS ORDERED: POTASSIUM CHL 20MEQ/100ML 100 ML IV ONE (21:45)
[2024-05-24] MEDS ORDERED: VANCOMYCIN PER PHARMACY 0 MG IV SCH (21:45)
[2024-05-24 21:53] LABS: Hematocrit 47.2 % (36.0-46.0); Hemoglobin 14.9 g/dL (12.2-16.2); Mean Corpuscular Hemoglobin 36.7 pg (28.0-32.0); Mean Corpuscular Hgb Conc. 31.7 g/dL (32.0-36.0); Mean Corpuscular Volume 115.9 fL (80.0-100.0); Platelet Count (auto) 182 10^3/uL (140-450); Red Blood Cells 4.07 10^6/uL (4.0-5.20); Red Cell Distribution Width 15.8 % (11.8-14.3); White Blood Cell 3.6 10^3/uL (4.4-10.8)
[2024-05-24 22:00] LABS: Basophils % (manual) 0 (0.0-2.0); Blast Cells 0; Eosinophils % (manual) 0 (0-7); Metamyelocytes % 0; Myelocytes % 0; Promyelocytes % 0; Reactive Lymphocytes 0
[2024-05-24 22:10] LABS: Lactic Acid w/Reflex 7.8 mmol/L (0.4-2.0)
[2024-05-24] MEDS: MIDAZOLAM DRIP 50 mg/50mL 50 ML IV SCH (22:10)
[2024-05-24 22:19] LABS: BUN/Creatinine Ratio 8.1 (10.0-20.0); Blood Urea Nitrogen 10 mg/dL (9-23); Glucose 87 mg/dL (74-106); LDL Cholesterol 6 mg/dL (< 100)
[2024-05-24 22:20] LABS: Cholesterol 140 mg/dL (< 200); HDL Cholesterol 84 mg/dL (40-59); Triglycerides 295 mg/dL (< 150)
[2024-05-24 22:22] LABS: Band Neutrophils % (manual) 4; Lymphocytes % (manual) 48 (10.0-50.0); Monocytes % (manual) 16 (0-12)
[2024-05-24 22:23] LABS: Large Platelets FEW
[2024-05-24 22:24] LABS: Macrocytosis Moderate; Platelet Estimate Adequa
[2024-05-24 22:27] LABS: Sodium 139 mmol/L (136-145)
[2024-05-24 22:28] LABS: Alanine Aminotransferase 350 U/L (7-40); Albumin 2.7 g/dL (3.2-4.8); Alkaline Phosphatase 171 U/L (46-116); Bilirubin, Total 2.3 mg/dL (0.2-1.0); Chloride 112 mmol/L (98-107); Potassium 3.2 mmol/L (3.5-5.1); Total Protein 4.8 g/dL (5.7-8.2)
[2024-05-24 22:31] LABS: Base Excess -27.5 mmol/L (-2.0-3.0)
[2024-05-24 22:31] LABS: Anion Gap 16 (5-15); Aspartate Aminotransferase 1011 U/L (13-40); Calcium 7.1 mg/dL (8.7-10.4); Carbon Dioxide 11 mmol/L (20-31)
[2024-05-24] MEDS: FOLIC ACID 1 MG in D5W 5% 50 ML INJ ONE (22:31)
[2024-05-24] MEDS: SODIUM BICARB 8.4% 50Meq/50ml SYR Vial IV ONE ×2 (22:33→23:30)
[2024-05-24] MEDS: VASOPRESSIN 20 UNIT/ML ONE (22:42)
--- NOTE | 2024-05-24 22:50 | DVH ---
CHEST RADIOGRAPH Indication: ET tube placement. s/p intubation Technique: Single frontal view of the chest was obtained Comparison: XY CHEST PORTABLE on DOS: 05/24/24, CHEST PORTABLE on DOS: 07/01/21, CXRP on DOS: 07/01/21 FINDINGS: Lines and Tubes: Endotracheal tube in the right mainstem bronchus recommend withdrawal 2-3 cm. Lungs: Opacification left aimee thorax may be due to pleural effusion or atelectasis. Pleura: No effusion. No pneumothorax. Appears to be subcutaneous emphysema above the clavicle on the right suggesting pneu momediastinum. Cardiomediastinal contours: Unremarkable Bones: No acute osseous abnormality. IMPRESSION: 1. Endotracheal tube in the right mainstem bronchus recommend withdrawal 2-3 cm 2. Opacification left aimee thorax findings are unchanged from chest x-ray done 05/24/2024 at 2:33 p.m .. This could be due to atelectasis of the left lung secondary to endotracheal tube position. 3. Subcutaneous emphysema above the clavicles on the right and left. Right worse than left. HS:Y
--- NOTE | 2024-05-24 23:40 | DVHINCON2 ---
Date of service: May 24, 2024 Referring Physician Bri Dquue NP Reason for Consultation Asthma, autonomic instability History of Present Illness A 68-year-old woman with past medical history including asthma, hypertension, hyperlipidemia, chronic back pain, herniated disc, glaucoma and cataracts who presents to ED today with c/o syncopal episode with nausea, vomiting, diarrhea, blurry vision, and dizziness x2 days. Patient reports falls x3 today, no complaint of pain. Reports that the blurry vision is still present. Patient's spouse at [facility], was unaware that patient fell 3 times today on her buttocks. The nurse reports a fall (assisted to the ground) with no head trauma or loss of consciousness. She denies any chest pain, shortness of breath, fever, chills, weakness, recent sick contacts, or recent ingestion of spoiled food. Patient was admitted for further care and pulmonary consultation is requested for evaluation and management of asthma and autonomic instability. Review of Systems: 14-point review of systems negative unless otherwise noted above. Past Medical History: Asthma, hypertension, hyperlipidemia, chronic back pain, herniated disc, fibromyalgia, glaucoma, cataracts Past Surgical History: , eyelid surgery Medications: Reviewed. Allergies: Amoxicillin Latex Family History: Diabetes mellitus. Social History: Nonsmoker. No alcohol or illicit drug use. Allergies: Coded Allergies: Amoxicillin (Verified Allergy, Unknown, 05/24/24) Latex (Verified Allergy, Unknown, 07/01/21) Home Meds Active Scripts Meclizine HCl (Meclizine) 25 Mg Chw, 25 MG PO DAILY for 10 Days, #10 CHW Prov:TRE PHILIPPE MD 07/05/21 Reported Medications Brimonidine Tartrate (Brimonidine Tartrate) 0.15 % Analilia, 1 DROP OP TID, DROP 05/24/24 Omeprazole (Gnp Omeprazole) 20 Mg Tab, 1 TAB PO DAILY, #90 TAB 1 Refill 05/24/24 Travoprost (Travatan Z) 0.004 % Damián, 1 DROP EACHEYE QPM, #2.5 ML 2 Refills 05/24/24 Metoprolol Succinate (Metoprolol Succinate Er) 50 Mg Tab, 50 MG PO DAILY for 30 Days, MG 05/24/24 Atorvastatin Calcium (Lipitor) 10 Mg Tab, 1 TAB PO DAILY, #30 TAB 5 Refills 05/24/24 Venlafaxine Hydrochloride (Venlafaxine Hcl) 75 Mg Tab, 75 MG PO DAILY, TAB 05/24/24 Levothyroxine Sodium (Levothyroxine Sodium) 50 Mcg Tab, 75 MCG PO QAM for 30 Days, MCG 05/24/24 Hydrochlorothiazide (Hydrochlorothiazide) 25 Mg Tab, 25 MG PO DAILY for 30 Days, MG 05/24/24 Current Medications Current Medications Medications (Trade) Dose Ordered Sig/Saji Route PRN Reason Start Time Stop Time Status Last Admin Folic Acid 1 mg/ Multivitamins 10 ml/Magnesium Sulfate 8 meq/ Thiamine HCl 100 mg/Dextrose 1,013.2 ml @ 125.001 mls/hr DAILY@1800 INJ 05/24/24 18:00 05/26/24 17:59 Norepinephrine Bitartrate 250 ml @ 3.75 mls/hr Q24H IV 05/24/24 15:45 05/24/24 15:56 Potassium Chloride 50 ml @ 25 mls/hr Q2H IV 05/24/24 18:15 05/24/24 22:07 DC Ondansetron HCl (Zofran) 4 mg Q4HP PRN IV NAUSEA / VOMITING 05/24/24 17:15 Acetaminophen (Tylenol Tablet) 650 mg Q6HP PRN PO PAIN SCALE 1-3 OR TEMP>100.4 05/24/24 17:15 Piperacillin Sod/ Tazobactam Sod 100 ml @ 25 mls/hr Q8HR IV 05/24/24 22:00 Sodium Chloride 1,000 ml @ 100 mls/hr Q10H IV 05/24/24 17:30 05/24/24 21:51 DC 05/24/24 18:33 Enoxaparin Sodium (Lovenox) 80 mg Q12HR SC 05/24/24 22:00 Pantoprazole Sodium (Protonix) 40 mg DAILY IV 05/25/24 10:00 Acetaminophen/ Hydrocodone Bitart ([place] 5/325MG Tab) 1 tab Q4HPRN PRN PO MODERATE PAIN (4-6 PAIN SCALE) 05/24/24 18:00 Propofol 100 ml @ 2.325 mls/ hr Q24H IV 05/24/24 21:45 Midazolam HCl 50 ml @ 1 mls/hr Q24H IV 05/24/24 21:45 Fentanyl Citrate 250 ml @ 2.5 mls/hr Q24H IV 05/24/24 21:45 Vancomycin HCl 0 ml @ 0 mls/hr UD IV 05/24/24 21:45 UNV Thiamine HCl 100 mg DAILY IV 05/25/24 10:00 Folic Acid 1 mg/ Dextrose 50.2 ml @ 200.8 mls/ hr DAILY INJ 05/25/24 10:00 Vasopressin 20 units/Sodium Chloride 100 ml @ 9 mls/hr Q11H7M IV 05/24/24 22:45 Phenylephrine HCl 250 ml @ 30 mls/hr Q8H20M IV 05/24/24 22:45 Epinephrine HCl 250 ml @ 7.5 mls/hr Q24H IV 05/24/24 23:15 Potassium Chloride 100 ml @ 50 mls/hr Q2H IV 05/24/24 23:30 05/25/24 03:29 UNV Vital Signs Vital Signs Date Time Temp Pulse Resp B/P (MAP) Pulse Ox O2 Delivery O2 Flow Rate FiO2 05/24/24 21:39 0 0 Ambu-Bag 149 05/24/24 21:32 261/90 (146) 90 100 05/24/24 15:05 0 Physical Exam Gen.: Patient lying in bed in no apparent distress. Breathing on room air. Head: Normocephalic, atraumatic. Eyes: EOMI/PERRLA. Ears: Normal hearing. Normal anatomy. Neck/trachea: Trachea midline, supple. Nose: Normal external anatomy. Mouth: Moist mucous membranes. Chest: Decreased air entry bilaterally. No wheezing or rhonchi. Cardiovascular: Positive S1, positive S2. Regular rate and rhythm. Abdomen: Positive bowel sounds in all 4 quadrants. Soft, non-tender, non- distended. : Deferred. Rectal: Deferred. Skin: Warm, dry. Intact. Extremities: 2+ radial pulses bilaterally. No lower extremity edema. Neuro: Awake, alert, oriented x3. No gross motor or sensory deficits. Cranial nerves II through XII intact. Gait not assessed. Labs/Diagnostic Data Labs Test 05/24/24 22:23 05/24/24 22:04 05/24/24 21:20 05/24/24 21:15 Range/Units Blood Gas Specimen Type Arterial Blood Gas Sample Site Right brachial Blood Gas Patient Temperature 37.0 Arterial Blood Date Drawn [id number] Arterial Blood pH 6.755 *L 7.350-7.450 Arterial Blood Partial Pressure CO2 63.7 *H 32.0-45.0 mmHg Arterial Blood Partial Pressure O2 73.2 L 83.0-108.0 mmHg Arterial Blood HCO3 8.7 L 21.0-28.0 mmol/L Arterial Blood Oxygen Saturation 80.6 *L 94.0-98.0 % Arterial Blood Base Excess -27.5 L -2.0-3.0 mmol/L Arterial Blood Oxyhemoglobin 79.7 L 94.0-98.0 % Arterial Blood Carboxyhemoglobin 0.4 L 0.5-1.5 % Arterial Blood Methemoglobin 0.7 0.0-1.5 % Manjit Test N/a Blood Gas Total Hemoglobin 14.90 12.0-16.0 g/dL Blood Gas Set Respiration Rate 20.0 Blood Gas Modality Vent - ac Blood Gas Spontaneous Rate 20 FiO2 % 100.0 Blood Gas Tidal Volume 450.0 Blood Gas PEEP or CPAP 5.0 Blood Gas Critical Value Read Back Yes Blood Gas Notified Whom Dayan frey np Blood Gas Notified Time [id number] Blood Gas Notified By White Blood Count 3.6 #L 4.4-10.8 10^3/uL Red Blood Count 4.07 4.0-5.20 10^6/uL Hemoglobin 14.9 # 12.2-16.2 g/dL Hematocrit 47.2 #H 36.0-46.0 % Mean Corpuscular Volume 115.9 #H 80.0-100.0 fL Mean Corpuscular Hemoglobin 36.7 H 28.0-32.0 pg Mean Corpuscular Hemoglobin Concent 31.7 L 32.0-36.0 g/dL Red Cell Distribution Width 15.8 H 11.8-14.3 % Platelet Count 182 140-450 10^3/uL Mean Platelet Volume 8.3 6.9-10.8 fL Neutrophils (%) (Auto) 37.0-80.0 % Lymphocytes (%) (Auto) 10.0-50.0 % Monocytes (%) (Auto) 0.0-12.0 % Basophils (%) (Auto) 0.0-2.0 % Neutrophils # (Auto) 1.6-8.6 10 ^3/uL Lymphocytes # (Auto) 0.4-5.4 10 ^3/uL Monocytes # (Auto) 0-1.3 10 ^3/uL Differential Total Cells Counted 100.0 100 Neutrophils % (Manual) 32 L 37.0-80.0 Band Neutrophils % (Manual) 4 Lymphocytes % (Manual) 48 10.0-50.0 Monocytes % (Manual) 16 H 0-12 Eosinophils % (Manual) 0 0-7 Basophils % (Manual) 0 0.0-2.0 Metamyelocytes % (manual) 0 Myelocytes % (Manual) 0 Promyelocytes % (Manual) 0 Blast Cells % (Manual) 0 Nucleated Red Blood Cells 2.0 % Reactive Lymphocytes 0 Platelet Estimate [place]qua Large Platelets Few Macrocytosis Moderate Sodium Level 139 136-145 mmol/L Potassium Level 3.2 L 3.5-5.1 mmol/L Chloride Level 112 H 98-107 mmol/L Carbon Dioxide Level 11 L 20-31 mmol/L Anion Gap 16 H 5-15 Blood Urea Nitrogen 10 9-23 mg/dL Creatinine 1.23 H 0.550-1.02 mg/dL Glomerular Filtration Rate Calc 48 >90 mL/min BUN/Creatinine Ratio 8.1 L 10.0-20.0 Serum Glucose 87 74-106 mg/dL Lactic Acid Level 7.8 *H 0.4-2.0 mmol/L Calcium Level 7.1 L 8.7-10.4 mg/dL Phosphorus Level 5.9 H 2.4-5.1 mg/dL Total Bilirubin 2.3 H 0.2-1.0 mg/dL Aspartate Amino Transferase (AST) 1011 H 13-40 U/L Alanine Aminotransferase (ALT) 350 H 7-40 U/L Alkaline Phosphatase 171 H 46-116 U/L Troponin I High Sensitivity 57 *H </=34 ng/L B-Type Natriuretic Peptide 1520.38 0-100 pg/mL Total Protein 4.8 L 5.7-8.2 g/dL Albumin 2.7 L 3.2-4.8 g/dL Triglycerides Level 295 H < 150 mg/dL Cholesterol Level 140 < 200 mg/dL LDL Cholesterol 6 < 100 mg/dL HDL Cholesterol 84 H 40-59 mg/dL Thyroid Stimulating Hormone (TSH) 7.86 H 0.55-4.78 uIU/mL POC Glucose 75 70-106 mg/dl Test 05/24/24 14:50 Range/Units Prothrombin Time 11.7 9.3-11.8 sec Prothrombin Time INR 1.12 0.9-1.15 Activated Partial Thromboplast Time 26.9 24.5-34.5 SEC D-Dimer, Quantitative 6.03 H 0.0-0.49 mg/L FEU Lactate Dehydrogenase 954 H 120-246 U/L Amylase Level 238 H 30-118 U/L Lipase 648 H 12-53 U/L Assessment Impression: Acute hypoxic respiratory failure On mechanical ventilation Shock on multiple pressors Obesity BMI 30 Atelectasis Autonomic instability Intractable nausea, vomiting, and diarrhea Blurry vision Dizziness Hypokalemia Elevated D-dimer Acute kidney injury Transaminitis, rule out pancreatitis Asthma Ascites Possible pancolitis Plan: Pt was intubated after suffering a cardiac arrest CT head: no acute intracranial hemorrhage or mass effet. CXR reviewed, notable for low lung volumes with bronchovascular crowding. No pneumothorax, pleural effusions, or consolidations. Chest, abdomen and pelvis CT reviewed; No pulmonary embolus or pulmonary artery hypertension. Bibasilar areas of atelectasis and small pleural effusions. Ascites, pericholecystic fluid. Mucosal thickening of the colon and small bowel may represent pancolitis. See report for full details. On mechanical ventilation: On AC mode; RR 30, VT 450, PEEP 10, FiO2 100% Titrate FIO2 to keep O2 saturation above 90%. VAP bundle. Daily ABG and CXR while intubated Off sedation since AM. She has been started on pressors On Pressors for hemodynamic support On Levophed Titrate to keep MAP above 65 mmHg/SBP above 90 mmHg. Plan for arterial line placement. See separate procedure note. S/p triple-lumen central line placement S/p NGT Pressors as necessary for hemodynamic support Titrate to keep mean arterial pressure greater than 65 mmHg. Follow up Cardiology recs Plan for Echo Continue Antibiotics Continue Antiemetics Monitor LFTs IV fluids with NS 100 ml/hr Monitor renal function d/t DEMIAN Monitor electrolytes. Supplement as necessary. Monitor ins and outs. DVT prophylaxis. Prognosis: Poor given patient's multiple co-morbidities. Condition: Critical Rest of plan per hospitalist and other consultants. A total of 35 minutes of critical care time was spent reviewing the patient record, examining the patient, making a diagnostic and therapeutic plan, discussing this plan with the medical personnel, following up on diagnostic studies and following the patient for clinical stability excluding any and all procedures. At least 50% of this time was spent in direct, [id number] contact. Thank you, ALEJANDRINA Duque, for allowing me to participate in this patient's care. Further recommendations will depend on the patient's clinical course. Please do not hesitate to contact me if you have any questions or concerns. This medical document was created using an electronic medical record system with [employer] dictation system. Although these documentations are being carefully reviewed, there may still be some phonetic and typographical changes. The errors are purely typographical, due to imperfection on the software program, and do not reflect any compromise in the patient's medical care. Plan discussed with: Other (ALEJANDRINA Duque/, and Marina and daughter in [facility] at bedside.) SHAWN GIL MD May 24, 2024 23:40
[2024-05-25] VITALS (76 sets, daily range): BP systolic 37–147; BP diastolic 22–106; PULSE 78–150; RESP 15–31; TEMP 96.7–99.3; O2SAT 43–100
[2024-05-25] MEDS: EPINEPHrine HCL 250 ML IV SCH (00:34)
[2024-05-25] MEDS: THIAMINE 100mg/ml INJ (200mg/2ml VIAL) IV ONE (00:35)
[2024-05-25] MEDS: ENOXAPARIN SOD 80 MG/0.8ML SYRINGE SC SCH (00:36)
[2024-05-25] MEDS: PIPERACILLIN-TAZOB 3.375GM 100 ML IV SCH (00:36)
[2024-05-25] MEDS: POTASSIUM CHL 20MEQ/50ML 50 ML IV ONE (00:52)
[2024-05-25] MEDS: SODIUM CHL 0.9% 100 ML IV ONE (00:52)
[2024-05-25] MEDS: POTASSIUM CHL 20MEQ/50ML 50 ML IV SCH (00:53)
[2024-05-25] MEDS: VASOPRESSIN 20 UNITS in SODIUM CHL 0.9% 99 ML IV SCH (00:56)
[2024-05-25 00:58] LABS: Base Excess -14.6 mmol/L (-2.0-3.0)
[2024-05-25] MEDS: FOLIC ACID 1 MG, MULTIPLE VITAMIN 10 ML, MAGNESIUM SULF SDV 50% 8 MEQ, THIAMINE INJ 100... INJ SCH (00:59)
--- NOTE | 2024-05-25 01:00 | DVH ---
CHEST RADIOGRAPH Indication: ET Tube Moved Back/NGT Placement Confirmation Technique: Single frontal view of the chest was obtained COMPARISON: XY CHEST PORTABLE on DOS: 05/24/24, XY CHEST PORTABLE on DOS: 05/24/24, CHEST PORTABLE on D OS: 07/01/21, CXRP on DOS: 07/01/21 FINDINGS: Lines and Tubes: Endotracheal tube tip remains at the level of the terrance and directed toward the rig ht mainstem bronchus. Retraction by additional 1-2 cm recommended. Lungs: Persistent left hemithoracic opacification, possibly including a component of effusion. No pneumothorax. Diffuse subcutaneous emphysema above the level of the clavicles unchanged. Cardiomediastinal contours: Unremarkable Bones: Unremarkable IMPRESSION: 1. Endotracheal tube tip at the level of the terrance remains directed toward the right mainstem bronch us. Recommend additional 1-2 cm retraction. 2. Persistent left hemithoracic opacification, possibly including a component of pleural effusion. 3. Subcutaneous emphysema above the level of the clavicles.
--- NOTE | 2024-05-25 01:09 | DVHNC2 ---
Procedure - Radial arterial line procedure note Indication: Hemodynamic monitoring, frequent blood ABG draws. Garden Consultant: Dr. Miles Date: 05/25/24 Time: 0110 AM Consent: Consent was obtained from patient's healthcare proxy prior to procedure. Indications, risks, and benefits were explained at length. Patient medications and allergies reviewed. The risks and benefits of the procedure and the sedation options and risk were discussed with the patient's healthcare proxy. All questions were answered and informed consent was obtained. Patient identification and proposed procedure were verified prior to the procedure by the physician, and a nurse in the patient's room. The heart rate, respiratory rate, oxygen saturations, blood pressure, adequacy of pulmonary ventilation, and response to care were monitored throughout the procedure. The physical status of the patient was reassessed after the procedure. Procedure summary: A time-out was performed. My hands were washed immediately prior to the procedure. I wore surgical cap, mask with protective eyewear, sterile gown and sterile gloves throughout the procedure. After an Manjit test was performed to ensure adequate perfusion, the RIGHT wrist was prepped using chlorhexidine scrub and draped in sterile fashion using sterile towels. The radial pulse was identified with the use of ultrasound. The wrist was positioned in the usual fashion. Anesthesia was achieved using 1% lidocaine. Using the radial arterial line kit, needle was inserted into the radial artery using ultrasound guidance. Arterial blood flow was seen to pulsate in the flash chamber. The internal guidewire was advanced easily into the radial artery. The catheter was then advanced over the wire and the needle and wire were withdrawn. The catheter was sutured into place with 1 sutures. A sterile Biopatch and Tegaderm was placed over the catheter at the insertion site. The patient tolerated the procedure without any hemodynamic compromise. At the time of procedure completion, the catheter was connected to the junk removal specialist and calibrated. Appropriate waveform and blood pressure tracing was observed. Estimated blood loss is less than 5 mL. CPT: 24741 Arterial line insertion CPT: 29131 US add-on SHAWN MILES MD May 25, 2024 01:09
[2024-05-25] MEDS: SODIUM BICARB 8.4% 50Meq/50ml SYR Vial IV ONE ×5 (01:18→21:42)
[2024-05-25] MEDS: HYDROCORTISONE SOD SUCC 100 MG/2ML INJ VIAL IV ONE (01:42)
[2024-05-25] MEDS: IPRATROPIUM BROM 0.5 MG/2.5ML INH SOL NEB SCH (02:00)
[2024-05-25 02:17] LABS: Urine Amorphous Crystal FEW /hpf (None Seen); Urine Bacteria FEW /hpf (None Seen); Urine Blood 3+ /uL (Negative); Urine Clarity Ex.Turbid (Clear); Urine Color Yellow (Yellow); Urine Protein, UAD 2+ (Negative); Urine Squamous Epithelial Cell FEW /hpf (<5); Urine Urobilinogen Normal (Negative); Urine WBC 15 /HPF (0-5)
--- NOTE | 2024-05-25 02:49 | DVH ---
INDICATION: high lft TECHNIQUE: Multiple real-time sonographic images were obtained of the right upper quadrant. COMPARISON: None FINDINGS: The liver demonstrates coarsened echotexture without focal mass lesions. The liver measures 14.6 cm. Normal hepatopetal portal flow identified. There is trace ascites. Right pleural effusion noted. There is no intrahepatic or extrahepatic ductal dilatation. The common duct measures 1.3 cm. The gallbladder is without evidence of stone or sludge. The gallbladder wall is mildly thickened, serge sures 0.4 cm. Trace pericholecystic fluid identified. Negative sonographic Rolon's sign. The right kidney measures 9.4 cm. The right kidney is normal in contour, size, and shape. The echogen icity is normal. There is no hydronephrosis. The pancreas is not well visualized due to overlying bowel gas. IMPRESSION: 1. Coarsened hepatic parenchymal echotexture and trace ascites. 2. Mild gallbladder wall thickening, trace pericholecystic fluid and increased prominence of the comm on bile duct. 3. Right pleural effusion.
[2024-05-25 03:41] LABS: Cannabinoid Screen, Urine Pos (NEGATIVE)
[2024-05-25 03:51] LABS: Amphetamine Screen, Urine Neg (NEGATIVE); Barbiturate Scree,Urine Neg (NEGATIVE); Benzodiazephine Screen, Urine Pos (NEGATIVE); Cocaine Screen, Urine Neg (NEGATIVE); Opiate Scree,Urine Neg (NEGATIVE); Phencyclidine Screen, Urine Neg (NEGATIVE)
[2024-05-25 03:54] LABS: Base Excess -12.4 mmol/L (-2.0-3.0)
[2024-05-25 05:43] LABS: Basophils # (auto) 0 10 ^3/uL (0-0.2); Eosinophils # (auto) 0.1 10 ^3/uL (0-0.8); Hematocrit 41.4 % (36.0-46.0); Hemoglobin 13.9 g/dL (12.2-16.2); Lymphocytes # (auto) 0.2 10 ^3/uL (0.4-5.4); Monocytes # (auto) 0.1 10 ^3/uL (0-1.3); Platelet Count (auto) 162 10^3/uL (140-450)
[2024-05-25 05:45] LABS: Basophils % (auto) 0.1 % (0.0-2.0); Eosinophils % (auto) 3.7 % (0.0-7.0); Mean Corpuscular Hemoglobin 35.8 pg (28.0-32.0); Mean Corpuscular Hgb Conc. 33.5 g/dL (32.0-36.0); Mean Corpuscular Volume 106.8 fL (80.0-100.0); Monocytes % (auto) 5.9 % (0.0-12.0); Neutrophils # (auto) 1.2 10 ^3/uL (1.6-8.6); Neutrophils % (auto) 77.3 % (37.0-80.0); Nucleated Red Blood Cells % 1.6 %; Red Cell Distribution Width 15.1 % (11.8-14.3)
[2024-05-25] MEDS: VASOPRESSIN 20 UNIT/ML ONE (05:48)
[2024-05-25 05:52] LABS: Red Blood Cells 3.88 10^6/uL (4.0-5.20)
[2024-05-25 05:53] LABS: White Blood Cell 1.5 10^3/uL (4.4-10.8)
[2024-05-25] MEDS: ALBUTEROL SULF 2.5 MG/0.5ML(0.5%) NEB SOLN NEB PRN (05:56)
[2024-05-25 06:01] LABS: Base Excess -10.8 mmol/L (-2.0-3.0)
[2024-05-25 06:56] LABS: Macrocytosis Slight; Platelet Estimate Adequate
[2024-05-25] MEDS: PROPOFOL 100 ML IV SCH (07:11)
[2024-05-25] MEDS: fentaNYL Drip 2500mCg/250mlNS 250 ML IV SCH (07:30)
[2024-05-25 08:27] LABS: Anion Gap 20 (5-15); BUN/Creatinine Ratio 10.4 (10.0-20.0); Blood Urea Nitrogen 14 mg/dL (9-23); Chloride 106 mmol/L (98-107); Sodium 144 mmol/L (136-145)
[2024-05-25 08:28] LABS: Alanine Aminotransferase 290 U/L (7-40); Albumin 2.3 g/dL (3.2-4.8); Alkaline Phosphatase 150 U/L (46-116); Aspartate Aminotransferase 841 U/L (13-40); Calcium 6.7 mg/dL (8.7-10.4); Carbon Dioxide 18 mmol/L (20-31); Glucose 161 mg/dL (74-106); Total Protein 4.2 g/dL (5.7-8.2)
[2024-05-25] MEDS: PHENYLEPHRINE INJ 80 MG in SODIUM CHL 0.9% 242 ML IV SCH (08:30)
[2024-05-25] MEDS: NOREPINEPHRINE BITARTRATE 32 MG in SODIUM CHL 0.9% 218 ML IV SCH (08:30)
[2024-05-25] MEDS: EPINEPHrine HCL INJECTION 16 MG in D5W 5% 234 ML IV SCH (08:30)
[2024-05-25 08:34] LABS: Bilirubin, Total 2.7 mg/dL (0.2-1.0)
[2024-05-25] MEDS: SODIUM CHLORIDE 0.9% 1,000 ML IV ONE (09:56)
[2024-05-25] MEDS: PANTOPRAZOLE 40 MG/10 ML VIAL INJ IV SCH (09:58)
[2024-05-25] MEDS: HYDROCORTISONE SOD SUCC 100 MG/2ML INJ VIAL IV SCH (09:58)
[2024-05-25] MEDS: THIAMINE 100mg/ml INJ (200mg/2ml VIAL) IV SCH (10:13)
--- NOTE | 2024-05-25 11:03 | DVHINCON2 ---
Date Seen: May 25, 2024 Referring Physician ALEJANDRINA Frey Reason for Consultation s/p CPR History of Present Illness This 68-year-old female presents in the ED with a chief complaint syncope. Cardiology is consulted for status post CPR. Upon assessment, the patient is currently intubated, medical record reveals, as patient going in the restroom had another syncopal episode leading to cardiac arrest. The patient total downtime of approximately 18 minutes with successful CPR with ROSC. The patient was given one round of epinephrine during the code. Currently on quadruple vasopressors all max out. In reviewing medical records, the patient presented in the ED for syncopal episode associated with nausea, vomiting, diarrhea, and dizziness for the past two days. Twelve lead ECG revealing sinus rhythm. Mildly elevated troponin. No history of CAD or CT. past medical history of hypertension, hyperlipidemia, fibromyalgia, obesity, and asthma Past Medical History As stated in HPI Past Surgical History Unknown Family History Reviewed, non-contributory to the management of this case. Social History The patient lives at home, denies smoking, alcohol or illicit drugs abuse. Allergies: Coded Allergies: Amoxicillin (Verified Allergy, Unknown, 05/24/24) Latex (Verified Allergy, Unknown, 07/01/21) Home Meds Active Scripts Meclizine HCl (Meclizine) 25 Mg Chw, 25 MG PO DAILY for 10 Days, #10 CHW Prov:TRE PHILIPPE MD 07/05/21 Reported Medications Brimonidine Tartrate (Brimonidine Tartrate) 0.15 % Analilia, 1 DROP OP TID, DROP 05/24/24 Omeprazole (Gnp Omeprazole) 20 Mg Tab, 1 TAB PO DAILY, #90 TAB 1 Refill 05/24/24 Travoprost (Travatan Z) 0.004 % Damián, 1 DROP EACHEYE QPM, #2.5 ML 2 Refills 05/24/24 Metoprolol Succinate (Metoprolol Succinate Er) 50 Mg Tab, 50 MG PO DAILY for 30 Days, MG 05/24/24 Atorvastatin Calcium (Lipitor) 10 Mg Tab, 1 TAB PO DAILY, #30 TAB 5 Refills 05/24/24 Venlafaxine Hydrochloride (Venlafaxine Hcl) 75 Mg Tab, 75 MG PO DAILY, TAB 05/24/24 Levothyroxine Sodium (Levothyroxine Sodium) 50 Mcg Tab, 75 MCG PO QAM for 30 Days, MCG 05/24/24 Hydrochlorothiazide (Hydrochlorothiazide) 25 Mg Tab, 25 MG PO DAILY for 30 Days, MG 05/24/24 Current Medications Current Medications Medications (Trade) Dose Ordered Sig/Saji Route PRN Reason Start Time Stop Time Status Last Admin Folic Acid 1 mg/ Multivitamins 10 ml/Magnesium Sulfate 8 meq/ Thiamine HCl 100 mg/Dextrose 1,013.2 ml @ 125.001 mls/hr DAILY@1800 INJ 05/24/24 18:00 05/26/24 17:59 05/25/24 00:59 Norepinephrine Bitartrate 250 ml @ 3.75 mls/hr Q24H IV 05/24/24 15:45 05/25/24 09:11 DC 05/25/24 05:40 Potassium Chloride 50 ml @ 25 mls/hr Q2H IV 05/24/24 18:15 05/24/24 22:07 DC Ondansetron HCl (Zofran) 4 mg Q4HP PRN IV NAUSEA / VOMITING 05/24/24 17:15 Acetaminophen (Tylenol Tablet) 650 mg Q6HP PRN PO PAIN SCALE 1-3 OR TEMP>100.4 05/24/24 17:15 Piperacillin Sod/ Tazobactam Sod 100 ml @ 25 mls/hr Q8HR IV 05/24/24 22:00 05/25/24 05:39 Sodium Chloride 1,000 ml @ 100 mls/hr Q10H IV 05/24/24 17:30 05/24/24 21:51 DC 05/24/24 18:33 Enoxaparin Sodium (Lovenox) 80 mg Q12HR SC 05/24/24 22:00 05/25/24 00:36 Pantoprazole Sodium (Protonix) 40 mg DAILY IV 05/25/24 10:00 05/25/24 09:58 Acetaminophen/ Hydrocodone Bitart ([place] 5/325MG Tab) 1 tab Q4HPRN PRN PO MODERATE PAIN (4-6 PAIN SCALE) 05/24/24 18:00 Propofol 100 ml @ 2.325 mls/ hr Q24H IV 05/24/24 21:45 05/25/24 07:11 Midazolam HCl 50 ml @ 1 mls/hr Q24H IV 05/24/24 21:45 05/24/24 22:10 Fentanyl Citrate 250 ml @ 2.5 mls/hr Q24H IV 05/24/24 21:45 05/25/24 07:30 Vancomycin HCl 0 ml @ 0 mls/hr UD IV 05/24/24 21:45 Thiamine HCl 100 mg DAILY IV 05/25/24 10:00 05/25/24 10:13 Folic Acid 1 mg/ Dextrose 50.2 ml @ 200.8 mls/ hr DAILY INJ 05/25/24 10:00 Vasopressin 20 units/Sodium Chloride 100 ml @ 9 mls/hr Q11H7M IV 05/24/24 22:45 05/25/24 05:47 Phenylephrine HCl 250 ml @ 30 mls/hr Q8H20M IV 05/24/24 22:45 05/25/24 09:12 DC 05/25/24 05:48 Epinephrine HCl 250 ml @ 7.5 mls/hr Q24H IV 05/24/24 23:15 05/25/24 09:12 DC 05/25/24 00:34 Potassium Chloride 50 ml @ 25 mls/hr Q2H IV 05/24/24 23:45 05/25/24 03:44 DC 05/25/24 02:06 Hydrocortisone Sodium Succinate (Solu-CORTEF INJECTION) 100 mg Q8H IV 05/25/24 09:00 05/25/24 09:58 Albuterol (Ventolin Medneb) 2.5 mg Q4HP PRN NEB SHORTNESS OF BREATH 05/25/24 01:00 05/25/24 05:56 Ipratropium [place] (Atrovent Medneb) 0.5 mg Q4HR NEB 05/25/24 02:00 05/25/24 10:04 Phenylephrine HCl 80 mg/Sodium Chloride 250 ml @ 7.5 mls/hr Q24H IV 05/25/24 07:45 05/25/24 08:30 Norepinephrine Bitartrate 32 mg/ Sodium Chloride 250 ml @ 0.938 mls/ hr Q24H IV 05/25/24 07:45 05/25/24 08:30 Epinephrine HCl 16 mg/Dextrose 250 ml @ 1.875 mls/ hr Q24H IV 05/25/24 07:45 05/25/24 08:30 Sodium Chloride 1,000 ml @ 75 mls/hr [id number] IV 05/25/24 09:45 Review of Systems Constitutional: No symptom reported Ears, Nose, & Throat: No symptom reported Eyes: No symptom reported Neurological: Syncope Pulmonary/Respiratory: No symptom reported Cardiovascular: Cardiac arrest Gastrointestinal: Nausea, vomiting Genitourinary: No symptom reported Musculoskeletal: No symptom reported Skin: No symptom reported Psychiatric: No symptom reported Endocrine: No symptom reported Hematologic/Lymphatic: No symptom reported Vital Signs Vital Signs Date Time Temp Pulse Resp B/P (MAP) Pulse Ox O2 Delivery O2 Flow Rate FiO2 05/25/24 10:04 131 30 91/74 (80) 80 05/25/24 07:45 99.3 95 210.7 05/25/24 07:30 Mechanical Ventilator+ 05/25/24 02:00 Physical Exam INITIAL VITAL SIGNS: Reviewed by me GENERAL: Obese HEAD: Head is normocephalic and atraumatic. EYES: Pupils sluggish ENT: Moist mucous membranes. NECK: Supple, No masses, Full range of motion. RESPIRATORY: Diminished lung sounds. Orally vented CV: Regular rate and rhythm. Hypotensive. No edema GI/: Active bowel sounds, soft, nondistended, nontender. INTEGUMENTARY: Warm and dry. No obvious rashes. NEUROLOGIC: Sedated Labs/Diagnostic Data Labs Test 05/25/24 07:24 05/25/24 05:56 05/25/24 05:15 05/25/24 03:27 Range/Units Sodium Level 144 # 136-145 mmol/L Potassium Level 3.0 L 3.5-5.1 mmol/L Chloride Level 106 98-107 mmol/L Carbon Dioxide Level 18 L 20-31 mmol/L Anion Gap 20 H 5-15 Blood Urea Nitrogen 14 9-23 mg/dL Creatinine 1.34 H 0.550-1.02 mg/dL Glomerular Filtration Rate Calc 44 >90 mL/min BUN/Creatinine Ratio 10.4 10.0-20.0 Serum Glucose 161 H 74-106 mg/dL Calcium Level 6.7 L 8.7-10.4 mg/dL Total Bilirubin 2.7 H 0.2-1.0 mg/dL Aspartate Amino Transferase (AST) 841 H 13-40 U/L Alanine Aminotransferase (ALT) 290 H 7-40 U/L Alkaline Phosphatase 150 H 46-116 U/L Total Protein 4.2 L 5.7-8.2 g/dL Albumin 2.3 L 3.2-4.8 g/dL Blood Gas Specimen Type Arterial Blood Gas Sample Site Arterial line Blood Gas Patient Temperature 37.0 Arterial Blood Date Drawn [id number] Arterial Blood pH 7.271 L 7.350-7.450 Arterial Blood Partial Pressure CO2 33.2 32.0-45.0 mmHg Arterial Blood Partial Pressure O2 138.5 H 83.0-108.0 mmHg Arterial Blood HCO3 14.9 L 21.0-28.0 mmol/L Arterial Blood Oxygen Saturation 99.0 H 94.0-98.0 % Arterial Blood Base Excess -10.8 L -2.0-3.0 mmol/L Arterial Blood Oxyhemoglobin 97.6 94.0-98.0 % Arterial Blood Carboxyhemoglobin 0.7 0.5-1.5 % Arterial Blood Methemoglobin 0.7 0.0-1.5 % Manjit Test N/a Blood Gas Total Hemoglobin 15.00 12.0-16.0 g/dL Blood Gas Set Respiration Rate 30.0 Blood Gas Modality Vent - ac FiO2 % 80.0 Blood Gas Tidal Volume 450.0 Blood Gas PEEP or CPAP 10.0 White Blood Count 1.5 #*L 4.4-10.8 10^3/uL Red Blood Count 3.88 L 4.0-5.20 10^6/uL Hemoglobin 13.9 12.2-16.2 g/dL Hematocrit 41.4 # 36.0-46.0 % Mean Corpuscular Volume 106.8 #H 80.0-100.0 fL Mean Corpuscular Hemoglobin 35.8 H 28.0-32.0 pg Mean Corpuscular Hemoglobin Concent 33.5 32.0-36.0 g/dL Red Cell Distribution Width 15.1 H 11.8-14.3 % Platelet Count 162 140-450 10^3/uL Mean Platelet Volume 8.8 6.9-10.8 fL Neutrophils (%) (Auto) 77.3 37.0-80.0 % Lymphocytes (%) (Auto) 13.0 10.0-50.0 % Monocytes (%) (Auto) 5.9 0.0-12.0 % Eosinophils (%) (Auto) 3.7 0.0-7.0 % Basophils (%) (Auto) 0.1 0.0-2.0 % Neutrophils # (Auto) 1.2 L 1.6-8.6 10 ^3/uL Lymphocytes # (Auto) 0.2 L 0.4-5.4 10 ^3/uL Monocytes # (Auto) 0.1 0-1.3 10 ^3/uL Eosinophils # (Auto) 0.1 0-0.8 10 ^3/uL Basophils # (Auto) 0 0-0.2 10 ^3/uL Nucleated Red Blood Cells 1.6 % Platelet Estimate Adequate Macrocytosis Slight Blood Gas Spontaneous Rate 30 Blood Gas Critical Value Read Back Yes Blood Gas Notified Whom Dayan frey np Blood Gas Notified Time [id number] Blood Gas Notified By Test 05/25/24 03:00 05/25/24 00:00 05/24/24 22:23 05/24/24 21:20 Range/Units Urine Opiates Screen Neg NEGATIVE Urine Fentanyl Screen Neg NEGATIVE Urine Barbiturates Screen Neg NEGATIVE Urine Phencyclidine Screen Neg NEGATIVE Urine Amphetamines Screen Neg NEGATIVE Urine Benzodiazepines Screen Pos NEGATIVE Urine Cocaine Screen Neg NEGATIVE Urine Cannabinoids Screen Pos NEGATIVE Urine Color Yellow Yellow Urine Clarity Ex.turbid Clear Urine pH 6.0 5.0-9.0 Urine Specific [place] 1.040 H 1.001-1.035 Urine Protein 2+ H Negative Urine Ketones Negative Negative Urine Blood 3+ H Negative /uL Urine Nitrite Negative Negative Urine Bilirubin 1+ H Negative Urine Urobilinogen Normal Negative mg/dL Urine Leukocyte Esterase Negative Negative /uL Urine RBC 3 0 - 4 /hpf Urine Microscopic WBC 15 H 0-5 /HPF Urine Squamous Epithelial Cells Few <5 /hpf Urine Amorphous Crystals Few None Seen /hpf Urine Bacteria Few H None Seen /hpf Urine Glucose Trace Normal mg/dL Differential Total Cells Counted 100.0 100 Neutrophils % (Manual) 32 L 37.0-80.0 Band Neutrophils % (Manual) 4 Lymphocytes % (Manual) 48 10.0-50.0 Monocytes % (Manual) 16 H 0-12 Eosinophils % (Manual) 0 0-7 Basophils % (Manual) 0 0.0-2.0 Metamyelocytes % (manual) 0 Myelocytes % (Manual) 0 Promyelocytes % (Manual) 0 Blast Cells % (Manual) 0 Reactive Lymphocytes 0 Large Platelets Few Lactic Acid Level 7.8 *H 0.4-2.0 mmol/L Phosphorus Level 5.9 H 2.4-5.1 mg/dL Magnesium Level 1.9 1.6-2.6 mg/dL Troponin I High Sensitivity 57 *H </=34 ng/L B-Type Natriuretic Peptide 1520.38 0-100 pg/mL Triglycerides Level 295 H < 150 mg/dL Cholesterol Level 140 < 200 mg/dL LDL Cholesterol 6 < 100 mg/dL HDL Cholesterol 84 H 40-59 mg/dL Thyroid Stimulating Hormone (TSH) 7.86 H 0.55-4.78 uIU/mL Test 05/24/24 21:15 05/24/24 14:50 Range/Units POC Glucose 75 70-106 mg/dl Prothrombin Time 11.7 9.3-11.8 sec Prothrombin Time INR 1.12 0.9-1.15 Activated Partial Thromboplast Time 26.9 24.5-34.5 SEC D-Dimer, Quantitative 6.03 H 0.0-0.49 mg/L FEU Lactate Dehydrogenase 954 H 120-246 U/L Amylase Level 238 H 30-118 U/L Lipase 648 H 12-53 U/L PROCEDURE(s): CXR1 - CHEST XRAY 1 VIEW REASON: ET Tube Moved Back/NGT Placement Confirmation ORDER NUMBER(s): [id number], ACCESSION NUMBER(s): [id number] CHEST RADIOGRAPH Indication: ET Tube Moved Back/NGT Placement Confirmation Technique: Single frontal view of the chest was obtained COMPARISON: XY CHEST PORTABLE on DOS: 05/24/24, XY CHEST PORTABLE on DOS: 05/24/24, CHEST PORTABLE on DOS: 07/01/21, CXRP on DOS: 07/01/21 FINDINGS: Lines and Tubes: Endotracheal tube tip remains at the level of the terrance and directed toward the right mainstem bronchus. Retraction by additional 1-2 cm recommended. Lungs: Persistent left hemithoracic opacification, possibly including a component of effusion. No pneumothorax. Diffuse subcutaneous emphysema above the level of the clavicles unchanged. Cardiomediastinal contours: Unremarkable Bones: Unremarkable IMPRESSION: 1. Endotracheal tube tip at the level of the terrance remains directed toward the right mainstem bronchus. Recommend additional 1-2 cm retraction. 2. Persistent left hemithoracic opacification, possibly including a component of pleural effusion. 3. Subcutaneous emphysema above the level of the clavicles. Assessment CPR with ROSC Sepsis with shock Syncope and collapse, to rule out cardiac etiology Elevated troponin, possible due to above Elevated BNP Dyslipidemia Transaminitis, likely due to ETOH abuse Positive D-dimer, PE ruled out DEMIAN on CKD Plan/Recommendation Plan/Recommendation We will continue with the following plan/recommendations (Dr.M. Retana ): -echocardiogram evaluate cardiac function - continue with vasopressors - continue to monitor troponins and EKGs - IV fluid, antibiotics per primary team - monitor kidney function Patient in septic shock, is currently on quadruple vasopressors, all max out with systolic BP remains in 90s, very poor prognosis, should continue with card iac surveillance, possible ischemic workup once condition is improved. Medical management for now. Consider goal of care. This medical document was created using an electronic medical record system with voice recognition software and computerized dictation system. Although this document has been carefully reviewed, there might still be some phonetic and typographical errors. Occasional wrong-word or ``sound-alike substitutions may have occurred due to the inherent limitations of voice recognition software. These areas are purely typographical due to imperfections of the software programs and do not reflect any compromise in the patient's medical care. Please read the chart carefully and recognize, using context, where these substitutions have occurred. Plan discussed with: Patient Plan discussed with: Patient NYHA Physical activity limitations: NA Date of Service: May 25, 2024 Billing Provider: ERICK RETANA MD Cardiology Common Codes: [id number] INP/OBS CARE (High), CONSULT ONLY [employer] May 25, 2024 11:03
[2024-05-25] MEDS: SODIUM CHLORIDE 0.9% 1,000 ML IV SCH (11:30)
[2024-05-25] MEDS: FUROSEMIDE 40 MG/4 ML VIAL IV ONE (12:28)
[2024-05-25] MEDS: FOLIC ACID 1 MG in D5W 5% 50 ML INJ SCH (12:45)
--- NOTE | 2024-05-25 12:52 | DVHPN2 ---
Reviewed: Care Plan, H&P, Labs, Medications, Previous Orders, Radiology Changes from previous H/P or p: No Changes Eyes: Vision change, Other (Blurry vision) Gastrointestinal: Nausea, Vomiting, Diarrhea Objective Vitals Vital Signs Date Time Temp Pulse Resp B/P (MAP) Pulse Ox O2 Delivery O2 Flow Rate FiO2 05/25/24 12:30 85/75 05/25/24 12:06 140 30 70 05/25/24 10:02 99.1 99 99.1 05/25/24 07:30 Mechanical Ventilator+ 05/25/24 02:00 Intake/Output Intake and Output 05/25/24 07:00 Intake Total 6924.45 ml Output Total 60 ml Balance 6864.45 ml Intake IV Total 6924.45 ml Output Urine Total 60 ml Medications Current Medications Medications Dose Ordered Sig/Saji Route Start Time Stop Time Status Last Admin Dose Admin Folic Acid 1 mg/ Multivitamins 10 ml/Magnesium Sulfate 8 meq/ Thiamine HCl 100 mg/Dextrose 1,013.2 ml @ 125.001 mls/hr DAILY@1800 INJ 05/24/24 18:00 05/26/24 17:59 05/25/24 00:59 125.001 MLS/HR Ondansetron HCl 4 mg Q4HP PRN IV 05/24/24 17:15 Acetaminophen 650 mg Q6HP PRN PO 05/24/24 17:15 Piperacillin Sod/ Tazobactam Sod 100 ml @ 25 mls/hr Q8HR IV 05/24/24 22:00 05/25/24 05:39 25 MLS/HR Enoxaparin Sodium 80 mg Q12HR SC 05/24/24 22:00 05/25/24 00:36 80 MG Pantoprazole Sodium 40 mg DAILY IV 05/25/24 10:00 05/25/24 09:58 40 MG Acetaminophen/ Hydrocodone Bitart 1 tab Q4HPRN PRN PO 05/24/24 18:00 Propofol 100 ml @ 2.325 mls/ hr Q24H IV 05/24/24 21:45 05/25/24 07:11 2.325 MLS/HR Midazolam HCl 50 ml @ 1 mls/hr Q24H IV 05/24/24 21:45 05/24/24 22:10 1 MLS/HR Fentanyl Citrate 250 ml @ 2.5 mls/hr Q24H IV 05/24/24 21:45 05/25/24 07:30 2.5 MLS/HR Vancomycin HCl 0 ml @ 0 mls/hr UD IV 05/24/24 21:45 Thiamine HCl 100 mg DAILY IV 05/25/24 10:00 05/25/24 10:13 100 MG Folic Acid 1 mg/ Dextrose 50.2 ml @ 200.8 mls/ hr DAILY INJ 05/25/24 10:00 05/25/24 12:45 200.8 MLS/HR Vasopressin 20 units/Sodium Chloride 100 ml @ 9 mls/hr Q11H7M IV 05/24/24 22:45 05/25/24 05:47 9 MLS/HR Hydrocortisone Sodium Succinate 100 mg Q8H IV 05/25/24 09:00 05/25/24 09:58 100 MG Albuterol 2.5 mg Q4HP PRN NEB 05/25/24 01:00 05/25/24 05:56 2.5 MG Ipratropium [place] 0.5 mg Q4HR NEB 05/25/24 02:00 05/25/24 10:04 0.5 MG Phenylephrine HCl 80 mg/Sodium Chloride 250 ml @ 7.5 mls/hr Q24H IV 05/25/24 07:45 05/25/24 08:30 33.75 MLS/HR Norepinephrine Bitartrate 32 mg/ Sodium Chloride 250 ml @ 0.938 mls/ hr Q24H IV 05/25/24 07:45 05/25/24 08:30 14.063 MLS/HR Epinephrine HCl 16 mg/Dextrose 250 ml @ 1.875 mls/ hr Q24H IV 05/25/24 07:45 05/25/24 08:30 9.375 MLS/HR Sodium Chloride 1,000 ml @ 75 mls/hr [id number] IV 05/25/24 09:45 05/25/24 11:30 75 MLS/HR Laboratory Results Laboratory Tests 05/25/24 05:15 05/25/24 07:24 Chemistry Test 05/24/24 14:50 05/24/24 21:20 05/25/24 07:24 Albumin 2.9 g/dL (3.2-4.8) L 2.7 g/dL (3.2-4.8) L 2.3 g/dL (3.2-4.8) L Calcium Level 8.6 mg/dL (8.7-10.4) L 7.1 mg/dL (8.7-10.4) L 6.7 mg/dL (8.7-10.4) L Magnesium Level 1.5 mg/dL (1.6-2.6) L 1.9 mg/dL (1.6-2.6) Total Protein 4.9 g/dL (5.7-8.2) L 4.8 g/dL (5.7-8.2) L 4.2 g/dL (5.7-8.2) L Phosphorus Level 5.9 mg/dL (2.4-5.1) H Coagulation Test 05/24/24 14:50 Prothrombin Time 11.7 sec (9.3-11.8) Prothrombin Time INR 1.12 (0.9-1.15) Activated Partial Thromboplast Time 26.9 SEC (24.5-34.5) D-Dimer, Quantitative 6.03 mg/L FEU (0.0-0.49) H Lipid panel Test 05/24/24 14:50 05/24/24 21:20 Lipase 648 U/L (12-53) H Cholesterol Level 140 mg/dL (< 200) HDL Cholesterol 84 mg/dL (40-59) H Triglycerides Level 295 mg/dL (< 150) H Cardiac Markers Test 05/24/24 16:45 05/24/24 21:20 B-Type Natriuretic Peptide 524.97 pg/mL (0-100) 1520.38 pg/mL (0-100) LFT Test 05/24/24 14:50 05/24/24 21:20 05/25/24 07:24 Alanine Aminotransferase (ALT) 428 U/L (7-40) H 350 U/L (7-40) H 290 U/L (7-40) H Alkaline Phosphatase 213 U/L (46-116) H 171 U/L (46-116) H 150 U/L (46-116) H Aspartate Amino Transferase (AST) 1400 U/L (13-40) H 1011 U/L (13-40) H 841 U/L (13-40) H Total Bilirubin 2.7 mg/dL (0.2-1.0) H 2.3 mg/dL (0.2-1.0) H 2.7 mg/dL (0.2-1.0) H HgA1c, TSH Test 05/24/24 21:20 Thyroid Stimulating Hormone (TSH) 7.86 uIU/mL (0.55-4.78) H Urinalysis Test 05/25/24 00:00 Urine Color Yellow (Yellow) Urine Clarity Ex.turbid (Clear) Urine pH 6.0 (5.0-9.0) Urine Specific [place] 1.040 (1.001-1.035) Urine Protein 2+ (Negative) H Urine Ketones Negative (Negative) Urine Blood 3+ /uL (Negative) H Urine Nitrite Negative (Negative) Urine Bilirubin 1+ (Negative) H Urine Urobilinogen Normal mg/dL (Negative) Urine Leukocyte Esterase Negative /uL (Negative) Urine RBC 3 /hpf (0 - 4) Urine Microscopic WBC 15 /HPF (0-5) H Urine Squamous Epithelial Cells Few /hpf (<5) Urine Amorphous Crystals Few /hpf (None Seen) Urine Bacteria Few /hpf (None Seen) H Urine Glucose Trace mg/dL (Normal) Blood Gas Results Test 05/24/24 22:04 05/25/24 00:35 05/25/24 03:27 05/25/24 05:56 Arterial Blood pH 6.755 (7.350-7.450) 7.134 (7.350-7.450) 7.218 (7.350-7.450) 7.271 (7.350-7.450) FiO2 % 100.0 100.0 90.0 80.0 Labs and/or images reviewed: Labs reviewed by me, Image(s) reviewed by me Assessment/Plan Assessment/Plan Acute hypoxic respiratory failure status post intubated on 70 percent FiO2, consult for Dr. Miles for vent management Cardiac arrest status post resuscitated Autonomic instability Intractable nausea, vomiting, and diarrhea Blurry vision Dizziness Hypokalemia Elevated D-dimer DEMIAN Transaminitis Rule out pancreatitis: Consult for GI Dr. Carter Hypotension Hypercholesterolemia asthma Chronic back pain Time spent 70 minutes Advanced care planning time 20 minutes Patient is full code Discussed with the management diagnosis and poor prognosis with the patient's family at bedside Plan discussed with: Patient My Orders Orders - MADDISON BUTLER MD Procedure Category Date Status Time Sodium Chloride 0.9% PHA 05/25/24 In Process 09:[address] 05/25/24 Taken 09:45 Communication Order ORDERS 05/25/24 Transmitted 08:30 Date of Service: May 25, 2024 Common Visit Codes: [id number] CARE 30-74 MIN MADDISON BUTLER MD May 25, 2024 12:52
--- NOTE | 2024-05-25 12:54 | DVH ---
CT HEAD WITHOUT CONTRAST Indication: R/O BLEED EXAM DATE: 05/25/2024 10:23 AM COMPARISON: CT HEAD WITHOUT CONTRAST on DOS: 05/24/24 TECHNIQUE: CT of the head without intravenous contrast. RADIATION DOSE: CTDIvol: 48.44 mGy, DLP: 864.38 mGy*cm FINDINGS: There is no intracranial hemorrhage. There is no extra-axial fluid, mass, mass effect or midline shif t. The ventricles are midline and normal in size. Basilar cisterns are patent. Carrasco-white differentia tion is maintained. There is mild global cerebral volume loss. The mastoids are well pneumatized. Frontal, ethmoid, sphenoid bilateral maxillary sinus disease. IMPRESSION: 1. No intracranial hemorrhage or mass effect. 2. Mild global cerebral volume loss.
[2024-05-25 14:28] LABS: Base Excess -24.7 mmol/L (-2.0-3.0)
--- NOTE | 2024-05-25 14:29 | DVHINCON2 ---
Date of service: May 25, 2024 Referring Physician Nadia Reason for Consultation Pupil responsive and no cough gag, patient was not on sedation History of Present Illness Ms. Mackay is a 68 years old female with a history of hypertension, dyslipidemia, hypothyroidism, asthma, glaucoma, chronic low back pain, heavy alcohol consumption, she came to the [facility] on 05/24/2024 with a chief complaint of syncopal event. In the hospital, she coded again, and has been intubated, nonresponsive, the history is obtained from her , her [id number] is in the room and she helps In the last a few days, the patient was has nausea, abdominal pain, before she was brought to the emergency, she had a brief passing out which was preceded by dizziness, blurred vision, she mentally recovered quite soon. In the ER, after using bathroom, the patient was passed out, and was resuscitated in about 6 minutes She was not on sedation, but the patient was not waking up, instead, her pupils became dilated and fixed In the last several years, the patient was has had spells of brief passing out, the family relates they were alcohol related, in the happened when she was standing or standing up and preceded by dizziness UDS, 05/25/2024: Benzo, cannabinoids Urinalysis, 05/25/2024: WBC: 15, urine leukocyte esterase: Negative ABG, 05/24/2024: Combined respiratory and metabolic acidosis, 05/25/2024: Metabolic acidosis CBC/HB/PLT/CV, 05/24/2024: 2/12.9/216/110, 05/25/2024: 1.5/30.9/162/106.8 PT/INR/PTT, 05/24/2024: 11.7/1.12/26.9 BUN/CR, 05/25/2024: 14/1.34 TBI/AST/ALT/AP, 05/25/2024: 2.7/804/290/150 TG/HDL/LDL/HDL, 05/22/24: 295/140/6/84 TSH, 05/25/2019 5:7.86 Ultrasound, liver, 05/24/2024: 1. Coarsened hepatic parenchymal echotexture and trace ascites. 2. Mild gallbladder wall thickening, trace pericholecystic fluid and increased prominence of the common bile duct. 3. Right pleural effusion. CT head, 05/25/2024: 1. No acute intracranial hemorrhage 2. No CT findings of territorial ischemia. 3. No CT findings of displaced skull fracture. CT head, 05/25/2024: 1. No intracranial hemorrhage or mass effect. 2. Mild global cerebral volume loss. Past Medical History Hypertension, dyslipidemia, hypothyroidism, asthma, glaucoma, chronic low back p ain Past Surgical History , lumbar spine surgery Family History Coronary artery disease, heart attack Social History She does not smoke, she was history of heavy alcohol consumption, no history of drug abuse Allergies: Coded Allergies: Amoxicillin (Verified Allergy, Unknown, 05/24/24) Latex (Verified Allergy, Unknown, 07/01/21) Home Meds Active Scripts Meclizine HCl (Meclizine) 25 Mg Chw, 25 MG PO DAILY for 10 Days, #10 CHW Prov:TRE PHILIPPE MD 07/05/21 Reported Medications Brimonidine Tartrate (Brimonidine Tartrate) 0.15 % Analilia, 1 DROP OP TID, DROP 05/24/24 Omeprazole (Gnp Omeprazole) 20 Mg Tab, 1 TAB PO DAILY, #90 TAB 1 Refill 05/24/24 Travoprost (Travatan Z) 0.004 % Damián, 1 DROP EACHEYE QPM, #2.5 ML 2 Refills 05/24/24 Metoprolol Succinate (Metoprolol Succinate Er) 50 Mg Tab, 50 MG PO DAILY for 30 Days, MG 05/24/24 Atorvastatin Calcium (Lipitor) 10 Mg Tab, 1 TAB PO DAILY, #30 TAB 5 Refills 05/24/24 Venlafaxine Hydrochloride (Venlafaxine Hcl) 75 Mg Tab, 75 MG PO DAILY, TAB 05/24/24 Levothyroxine Sodium (Levothyroxine Sodium) 50 Mcg Tab, 75 MCG PO QAM for 30 Days, MCG 05/24/24 Hydrochlorothiazide (Hydrochlorothiazide) 25 Mg Tab, 25 MG PO DAILY for 30 Days, MG 05/24/24 Current Medications Current Medications Medications (Trade) Dose Ordered Sig/Saji Route PRN Reason Start Time Stop Time Status Last Admin Folic Acid 1 mg/ Multivitamins 10 ml/Magnesium Sulfate 8 meq/ Thiamine HCl 100 mg/Dextrose 1,013.2 ml @ 125.001 mls/hr DAILY@1800 INJ 05/24/24 18:00 05/26/24 17:59 05/25/24 00:59 Norepinephrine Bitartrate 250 ml @ 3.75 mls/hr Q24H IV 05/24/24 15:45 05/25/24 09:11 DC 05/25/24 05:40 Potassium Chloride 50 ml @ 25 mls/hr Q2H IV 05/24/24 18:15 05/24/24 22:07 DC Ondansetron HCl (Zofran) 4 mg Q4HP PRN IV NAUSEA / VOMITING 05/24/24 17:15 Acetaminophen (Tylenol Tablet) 650 mg Q6HP PRN PO PAIN SCALE 1-3 OR TEMP>100.4 05/24/24 17:15 Piperacillin Sod/ Tazobactam Sod 100 ml @ 25 mls/hr Q8HR IV 05/24/24 22:00 05/25/24 14:14 Sodium Chloride 1,000 ml @ 100 mls/hr Q10H IV 05/24/24 17:30 05/24/24 21:51 DC 05/24/24 18:33 Enoxaparin Sodium (Lovenox) 80 mg Q12HR SC 05/24/24 22:00 05/25/24 00:36 Pantoprazole Sodium (Protonix) 40 mg DAILY IV 05/25/24 10:00 05/25/24 09:58 Acetaminophen/ Hydrocodone Bitart ([place] 5/325MG Tab) 1 tab Q4HPRN PRN PO MODERATE PAIN (4-6 PAIN SCALE) 05/24/24 18:00 Propofol 100 ml @ 2.325 mls/ hr Q24H IV 05/24/24 21:45 05/25/24 07:11 Midazolam HCl 50 ml @ 1 mls/hr Q24H IV 05/24/24 21:45 05/24/24 22:10 Fentanyl Citrate 250 ml @ 2.5 mls/hr Q24H IV 05/24/24 21:45 05/25/24 07:30 Vancomycin HCl 0 ml @ 0 mls/hr UD IV 05/24/24 21:45 Thiamine HCl 100 mg DAILY IV 05/25/24 10:00 05/25/24 10:13 Folic Acid 1 mg/ Dextrose 50.2 ml @ 200.8 mls/ hr DAILY INJ 05/25/24 10:00 05/25/24 12:45 Vasopressin 20 units/Sodium Chloride 100 ml @ 9 mls/hr Q11H7M IV 05/24/24 22:45 05/25/24 05:47 Phenylephrine HCl 250 ml @ 30 mls/hr Q8H20M IV 05/24/24 22:45 05/25/24 09:12 DC 05/25/24 05:48 Epinephrine HCl 250 ml @ 7.5 mls/hr Q24H IV 05/24/24 23:15 05/25/24 09:12 DC 05/25/24 00:34 Potassium Chloride 50 ml @ 25 mls/hr Q2H IV 05/24/24 23:45 05/25/24 03:44 DC 05/25/24 02:06 Hydrocortisone Sodium Succinate (Solu-CORTEF INJECTION) 100 mg Q8H IV 05/25/24 09:00 05/25/24 09:58 Albuterol (Ventolin Medneb) 2.5 mg Q4HP PRN NEB SHORTNESS OF BREATH 05/25/24 01:00 05/25/24 05:56 Ipratropium [place] (Atrovent Medneb) 0.5 mg Q4HR NEB 05/25/24 02:00 05/25/24 14:07 Phenylephrine HCl 80 mg/Sodium Chloride 250 ml @ 7.5 mls/hr Q24H IV 05/25/24 07:45 05/25/24 08:30 Norepinephrine Bitartrate 32 mg/ Sodium Chloride 250 ml @ 0.938 mls/ hr Q24H IV 05/25/24 07:45 05/25/24 08:30 Epinephrine HCl 16 mg/Dextrose 250 ml @ 1.875 mls/ hr Q24H IV 05/25/24 07:45 05/25/24 08:30 Sodium Chloride 1,000 ml @ 75 mls/hr [id number] IV 05/25/24 09:45 05/25/24 11:30 Review of Systems As above, the other systems are negative Vital Signs Vital Signs Date Time Temp Pulse Resp B/P (MAP) Pulse Ox O2 Delivery O2 Flow Rate FiO2 05/25/24 14:07 135 30 77/69 (72) 93 70 05/25/24 14:00 98.4 98.4 05/25/24 07:30 Mechanical Ventilator+ 05/25/24 02:00 Physical Exam The patient is well-nourished and well-developed with no distress. She has jaundice, The patient is intubated HEENT: Normocephalic, neck supple, no carotid bruits Lungs: Clear to auscultation Cardiovascular: Regular rate and region, S1, S2, no murmurs Abdomen: Soft, nontender, normal bowel sounds MENTAL STATUS: Not responsive to the surroundings, CRANIAL NERVES: Pupils are equal, round, fix and nonreactive.There are no corneal reflexes and doll's eyes phenomenon. No signs of facial weakness. There are no gagging or coughing reflexes SENSATION: No responses to pain stimuli. MOTOR: Normal tone in the upper and lower extremity. Normal muscle bulk. No fasciculations. No spontaneous movement. REFLEXES: Deep tendon reflexes are symmetrical. No pathological reflexes. CEREBELLAR/COORDINATION: Deferred GAIT/STATION: deferred. Labs/Diagnostic Data Labs Test 05/25/24 14:05 05/25/24 07:24 05/25/24 05:56 05/25/24 05:15 Range/Units Sodium Level 144 # 136-145 mmol/L Potassium Level 3.0 L 3.5-5.1 mmol/L Chloride Level 106 98-107 mmol/L Carbon Dioxide Level 18 L 20-31 mmol/L Anion Gap 20 H 5-15 Blood Urea Nitrogen 14 9-23 mg/dL Creatinine 1.34 H 0.550-1.02 mg/dL Glomerular Filtration Rate Calc 44 >90 mL/min BUN/Creatinine Ratio 10.4 10.0-20.0 Serum Glucose 161 H 74-106 mg/dL Calcium Level 6.7 L 8.7-10.4 mg/dL Total Bilirubin 2.7 H 0.2-1.0 mg/dL Aspartate Amino Transferase (AST) 841 H 13-40 U/L Alanine Aminotransferase (ALT) 290 H 7-40 U/L Alkaline Phosphatase 150 H 46-116 U/L Total Protein 4.2 L 5.7-8.2 g/dL Albumin 2.3 L 3.2-4.8 g/dL Blood Gas Specimen Type Arterial Blood Gas Sample Site Arterial line Blood Gas Patient Temperature 37.0 Arterial Blood Date Drawn [id number] Arterial Blood pH 7.271 L 7.350-7.450 Arterial Blood Partial Pressure CO2 33.2 32.0-45.0 mmHg Arterial Blood Partial Pressure O2 138.5 H 83.0-108.0 mmHg Arterial Blood HCO3 14.9 L 21.0-28.0 mmol/L Arterial Blood Oxygen Saturation 99.0 H 94.0-98.0 % Arterial Blood Base Excess -10.8 L -2.0-3.0 mmol/L Arterial Blood Oxyhemoglobin 97.6 94.0-98.0 % Arterial Blood Carboxyhemoglobin 0.7 0.5-1.5 % Arterial Blood Methemoglobin 0.7 0.0-1.5 % Manjit Test N/a Blood Gas Total Hemoglobin 15.00 12.0-16.0 g/dL Blood Gas Set Respiration Rate 30.0 Blood Gas Modality Vent - ac FiO2 % 80.0 Blood Gas Tidal Volume 450.0 Blood Gas PEEP or CPAP 10.0 White Blood Count 1.5 #*L 4.4-10.8 10^3/uL Red Blood Count 3.88 L 4.0-5.20 10^6/uL Hemoglobin 13.9 12.2-16.2 g/dL Hematocrit 41.4 # 36.0-46.0 % Mean Corpuscular Volume 106.8 #H 80.0-100.0 fL Mean Corpuscular Hemoglobin 35.8 H 28.0-32.0 pg Mean Corpuscular Hemoglobin Concent 33.5 32.0-36.0 g/dL Red Cell Distribution Width 15.1 H 11.8-14.3 % Platelet Count 162 140-450 10^3/uL Mean Platelet Volume 8.8 6.9-10.8 fL Neutrophils (%) (Auto) 77.3 37.0-80.0 % Lymphocytes (%) (Auto) 13.0 10.0-50.0 % Monocytes (%) (Auto) 5.9 0.0-12.0 % Eosinophils (%) (Auto) 3.7 0.0-7.0 % Basophils (%) (Auto) 0.1 0.0-2.0 % Neutrophils # (Auto) 1.2 L 1.6-8.6 10 ^3/uL Lymphocytes # (Auto) 0.2 L 0.4-5.4 10 ^3/uL Monocytes # (Auto) 0.1 0-1.3 10 ^3/uL Eosinophils # (Auto) 0.1 0-0.8 10 ^3/uL Basophils # (Auto) 0 0-0.2 10 ^3/uL Nucleated Red Blood Cells 1.6 % Platelet Estimate Adequate Macrocytosis Slight Test 05/25/24 03:27 05/25/24 03:00 05/25/24 00:00 05/24/24 22:23 Range/Units Blood Gas Spontaneous Rate 30 Blood Gas Critical Value Read Back Yes Blood Gas Notified Whom Dayan hernandezdany jimenez Blood Gas Notified Time [id number] Blood Gas Notified By Urine Opiates Screen Neg NEGATIVE Urine Fentanyl Screen Neg NEGATIVE Urine Barbiturates Screen Neg NEGATIVE Urine Phencyclidine Screen Neg NEGATIVE Urine Amphetamines Screen Neg NEGATIVE Urine Benzodiazepines Screen Pos NEGATIVE Urine Cocaine Screen Neg NEGATIVE Urine Cannabinoids Screen Pos NEGATIVE Urine Color Yellow Yellow Urine Clarity Ex.turbid Clear Urine pH 6.0 5.0-9.0 Urine Specific [place] 1.040 H 1.001-1.035 Urine Protein 2+ H Negative Urine Ketones Negative Negative Urine Blood 3+ H Negative /uL Urine Nitrite Negative Negative Urine Bilirubin 1+ H Negative Urine Urobilinogen Normal Negative mg/dL Urine Leukocyte Esterase Negative Negative /uL Urine RBC 3 0 - 4 /hpf Urine Microscopic WBC 15 H 0-5 /HPF Urine Squamous Epithelial Cells Few <5 /hpf Urine Amorphous Crystals Few None Seen /hpf Urine Bacteria Few H None Seen /hpf Urine Glucose Trace Normal mg/dL Test 05/24/24 21:20 05/24/24 21:15 05/24/24 14:50 Range/Units Differential Total Cells Counted 100.0 100 Neutrophils % (Manual) 32 L 37.0-80.0 Band Neutrophils % (Manual) 4 Lymphocytes % (Manual) 48 10.0-50.0 Monocytes % (Manual) 16 H 0-12 Eosinophils % (Manual) 0 0-7 Basophils % (Manual) 0 0.0-2.0 Metamyelocytes % (manual) 0 Myelocytes % (Manual) 0 Promyelocytes % (Manual) 0 Blast Cells % (Manual) 0 Reactive Lymphocytes 0 Large Platelets Few Lactic Acid Level 7.8 *H 0.4-2.0 mmol/L Phosphorus Level 5.9 H 2.4-5.1 mg/dL Magnesium Level 1.9 1.6-2.6 mg/dL Troponin I High Sensitivity 57 *H </=34 ng/L B-Type Natriuretic Peptide 1520.38 0-100 pg/mL Triglycerides Level 295 H < 150 mg/dL Cholesterol Level 140 < 200 mg/dL LDL Cholesterol 6 < 100 mg/dL HDL Cholesterol 84 H 40-59 mg/dL Thyroid Stimulating Hormone (TSH) 7.86 H 0.55-4.78 uIU/mL POC Glucose 75 70-106 mg/dl Prothrombin Time 11.7 9.3-11.8 sec Prothrombin Time INR 1.12 0.9-1.15 Activated Partial Thromboplast Time 26.9 24.5-34.5 SEC D-Dimer, Quantitative 6.03 H 0.0-0.49 mg/L FEU Lactate Dehydrogenase 954 H 120-246 U/L Amylase Level 238 H 30-118 U/L Lipase 648 H 12-53 U/L Assessment Coma Metabolic encephalopathy Hypoxic encephalopathy Toxic encephalopathy Cardiopulmonary arrest Acute respiratory failure Respiratory acidosis Metabolic acidosis Jaundice Alcoholism Plan/Recommendation Monitoring Supportive treatment ICU care Follow-up lab Follow-up CT brain scan (will order) Stabilize vitals/pressor drip (2 maximized pressor drips) Respiratory support/vent management Oxygen Thiamine supplementation/banana bag Folic acid IV antibiotics Pulmonary on case GI on case Hematology on case More recommendation per clinical course Prognosis: Guarded Critical care time spent is 45 minutes This medical document was created using an electronic medical record system with [employer] dictation system. Although this document has been carefully reviewed, there may still be some phonetic and typographical errors. These areas are purely typographical due to imperfections of the software programs, and do not reflect any compromise in the patient's medical care.ee Plan discussed with: Spouse, Daughter, Other JOSR NAQVI MD May 25, 2024 14:29
[2024-05-25 14:41] LABS: COVID19 ANTIGEN SOFIA FIA NEGATIVE (NEGATIVE); Rapid Influenza A Negative (Negative); Rapid Influenza B Negative (Negative)
--- NOTE | 2024-05-25 16:07 | DVH ---
Bilateral lower extremity venous duplex Clinical History: r/o dvt Comparison: None Technique: Duplex Doppler evaluation of the deep venous systems of both lower extremities from the common femora l veins to the popliteal veins including color Doppler and spectral/pulsed waveform analysis was perf ormed. Findings: RIGHT SIDE: The common femoral vein not visualized at this time Right greater saphenous vein not visualized at this time Proximal superficial femoral vein not visualized at this time The deep femoral vein demonstrates appropriate compressibility and waveform variability. The popliteal vein demonstrates appropriate compressibility and waveform variability. There is normal compressibility at the tibioperoneal trunk. LEFT SIDE: The common femoral vein demonstrates appropriate compressibility and waveform variability. There is compressibility/patency of the great saphenous vein at the proximal thigh. The femoral vein demonstrates appropriate compressibility and waveform variability. The deep femoral vein demonstrates appropriate compressibility and waveform variability. The popliteal vein demonstrates appropriate compressibility and waveform variability. There is normal compressibility at the tibioperoneal trunk. Impression: 1. No left femoropopliteal venous thrombosis. 2. Right common femoral vein, greater saphenous vein, proximal superficial femoral vein not visualize d time. No deep venous thrombosis in visualized veins in the right lower extremity. HS:Y
[2024-05-25 20:29] LABS: Base Excess -27.5 mmol/L (-2.0-3.0)
--- NOTE | 2024-05-25 21:03 | DVHPN2 ---
Progress Note - Dictate Date Seen: May 25, 2024 Medical Necessity Reason Pt with a Central, PICC or Fol: Yes The following are medically ne: Zhong Catheter Reason for zhong catheter: Strict I&O Subjective Patient seen and examined at bedside. Intubated on mechanical ventilator. Overnight events reviewed. vital signs Vital Sign Date Time Temp Pulse Resp B/P (MAP) Pulse Ox O2 Delivery O2 Flow Rate FiO2 05/25/24 20:05 129 30 52/46 (48) 70 05/25/24 18:30 98.6 98.6 05/25/24 18:20 94 05/25/24 18:20 Mechanical Ventilator+ 05/25/24 02:00 Total Intake and Output 05/24/24 05/24/24 05/25/24 15:00 23:00 07:00 Intake Total 4505.20 ml 2419.25 ml Output Total 60 ml Balance 4505.20 ml 2359.25 ml medications Current Medications Medications Dose Ordered Sig/Saji Route Start Time Stop Time Status Last Admin Dose Admin Folic Acid 1 mg/ Multivitamins 10 ml/Magnesium Sulfate 8 meq/ Thiamine HCl 100 mg/Dextrose 1,013.2 ml @ 125.001 mls/hr DAILY@1800 INJ 05/24/24 18:00 05/26/24 17:59 05/25/24 20:24 125.001 MLS/HR Ondansetron HCl 4 mg Q4HP PRN IV 05/24/24 17:15 Acetaminophen 650 mg Q6HP PRN PO 05/24/24 17:15 Piperacillin Sod/ Tazobactam Sod 100 ml @ 25 mls/hr Q8HR IV 05/24/24 22:00 05/25/24 14:14 25 MLS/HR Enoxaparin Sodium 80 mg Q12HR SC 05/24/24 22:00 05/25/24 00:36 80 MG Pantoprazole Sodium 40 mg DAILY IV 05/25/24 10:00 05/25/24 09:58 40 MG Acetaminophen/ Hydrocodone Bitart 1 tab Q4HPRN PRN PO 05/24/24 18:00 Propofol 100 ml @ 2.325 mls/ hr Q24H IV 05/24/24 21:45 05/25/24 07:11 2.325 MLS/HR Midazolam HCl 50 ml @ 1 mls/hr Q24H IV 05/24/24 21:45 05/24/24 22:10 1 MLS/HR Fentanyl Citrate 250 ml @ 2.5 mls/hr Q24H IV 05/24/24 21:45 05/25/24 07:30 2.5 MLS/HR Vancomycin HCl 0 ml @ 0 mls/hr UD IV 05/24/24 21:45 Thiamine HCl 100 mg DAILY IV 05/25/24 10:00 05/25/24 10:13 100 MG Folic Acid 1 mg/ Dextrose 50.2 ml @ 200.8 mls/ hr DAILY INJ 05/25/24 10:00 05/25/24 12:45 200.8 MLS/HR Vasopressin 20 units/Sodium Chloride 100 ml @ 9 mls/hr Q11H7M IV 05/24/24 22:45 05/25/24 16:30 9 MLS/HR Hydrocortisone Sodium Succinate 100 mg Q8H IV 05/25/24 09:00 05/25/24 17:04 100 MG Albuterol 2.5 mg Q4HP PRN NEB 05/25/24 01:00 05/25/24 05:56 2.5 MG Ipratropium [place] 0.5 mg Q4HR NEB 05/25/24 02:00 05/25/24 14:07 0.5 MG Phenylephrine HCl 80 mg/Sodium Chloride 250 ml @ 7.5 mls/hr Q24H IV 05/25/24 07:45 05/25/24 15:00 33.75 MLS/HR Norepinephrine Bitartrate 32 mg/ Sodium Chloride 250 ml @ 0.938 mls/ hr Q24H IV 05/25/24 07:45 05/25/24 08:30 14.063 MLS/HR Epinephrine HCl 16 mg/Dextrose 250 ml @ 1.875 mls/ hr Q24H IV 05/25/24 07:45 05/25/24 08:30 9.375 MLS/HR Sodium Chloride 1,000 ml @ 75 mls/hr [id number] IV 05/25/24 09:45 05/25/24 11:30 75 MLS/HR objective Gen.: Patient lying in bed in medical ICU. Intubated on mechanical ventilator. Head: Normocephalic, atraumatic. Eyes: PERRLA. Ears: Normal external anatomy. Throat: Endotracheal tube and orogastric tube in place. Neck: Supple, trachea midline. Chest: Transmitted breath sounds bilaterally. Decreased air entry bilaterally. No wheezing. Bibasilar crackles. Cardiovascular: Positive S1, positive S2. Regular rate and rhythm. Abdomen: Positive bowel sounds in all 4 quadrants. Soft, nontender, nondistended. : Zhong in place. Normal external genitalia. Rectal: Deferred. Skin: Warm, dry. Intact. Extremities: 2+ radial pulses bilaterally. No lower extremity edema. Neuro: Off sedation laboratory and microbiology Laboratory Tests 05/25/24 05:15 Test 05/25/24 20:54 Range/Units Serum Glucose Pending Assessment/Plan Impression: Acute hypoxic respiratory failure On mechanical ventilator Autonomic instability Intractable nausea, vomiting, and diarrhea Blurry vision Dizziness Hypokalemia Elevated D-dimer Acute kidney injury Transaminitis, rule out pancreatitis Asthma Events: Currently on vent support On AC mode; RR 30, VT 450, PEEP 10, FiO2 70% Off sedation Patient is maxed on all pressors. On Levophed 30 mcg/min, Aniket-Synephrine 180 mcg/min, vasopressin 0.03 units/min, epinephrine 10 mcg/min. Titrate to keep MAP above 65 mmHg/SBP above 90 mmHg. S/p arterial line placement for hemodynamic monitoring ABG reviewed, notable for severe acidemia Ordered 2 grams bicarb IVP Cardiology recs appreciated Continue antibiotics Vitamin supplementation Continue bronchodilators Tube feeds for nutritional support Monitor lactic acid Head CT showed no intracranial hemorrhage or mass effect. Labs and imaging reviewed. Rest of plan as noted below. Plan: s/p intubation on mechanical ventilator. On AC mode; RR 30, VT 450, PEEP 10, FiO2 70% Titrate FIO2 to keep O2 saturation above 90%. VAP bundle. Daily ABG and CXR while intubated Off sedation since AM. Chest, abdomen and pelvis CT reviewed; No pulmonary embolus or pulmonary artery hypertension. Bibasilar areas of atelectasis and small pleural effusions. Ascites, pericholecystic fluid. Mucosal thickening of the colon and small bowel may represent pancolitis. See report for full details. S/p triple-lumen central line placement S/p NGT Pressors for hemodynamic support Titrate to keep MAP above 65 mmHg/SBP above 90 mmHg. Antibiotics Antiemetics Pain control Monitor LFTs IV fluids Monitor renal function d/t DEMIAN Monitor electrolytes. Supplement as necessary. Monitor ins and outs. DVT prophylaxis. Prognosis: Poor given patient's multiple co-morbidities. Condition: Critical Rest of plan per hospitalist and other consultants. A total of 35 minutes of critical care time was spent reviewing the patient record, examining the patient, making a diagnostic and therapeutic plan, discussing this plan with the medical personnel, following up on diagnostic studies and following the patient for clinical stability excluding any and all procedures. At least 50% of this time was spent in direct, [id number] contact. Thank you, ALEJANDRINA Duque, for allowing me to participate in this patient's care. Further recommendations will depend on the patient's clinical course. Please do not hesitate to contact me if you have any questions or concerns. This medical document was created using an electronic medical record system with [employer] dictation system. Although these documentations are being carefully reviewed, there may still be some phonetic and typographical changes. The errors are purely typographical, due to imperfection on the software program, and do not reflect any compromise in the patient's medical care. Plan discussed with: Other (COBY Og) Critical Care Time(min): 35 SHAWN GIL MD May 25, 2024 21:03
[2024-05-25 21:12] LABS: Potassium 4.5 mmol/L (3.5-5.1)
[2024-05-25 21:13] LABS: Anion Gap 28 (5-15)
[2024-05-25 21:18] LABS: BUN/Creatinine Ratio 9.5 (10.0-20.0); Blood Urea Nitrogen 20 mg/dL (9-23)
[2024-05-25 21:19] LABS: Calcium 6.2 mg/dL (8.7-10.4); Carbon Dioxide 11 mmol/L (20-31); Chloride 109 mmol/L (98-107); Glucose 52 mg/dL (74-106); Sodium 148 mmol/L (136-145)
[2024-05-25] MEDS: DEXTROSE (50%) 50ML SYRG IV ONE (21:59)
[2024-05-25] MEDS: DEXTROSE 50% SYRINGE 50 ML IV ONE (21:59)
--- NOTE | 2024-05-25 22:57 | DVHINCON2 ---
Date of service: May 25, 2024 Referring Physician Willem Perez Reason for Consultation Elevated liver tests History of Present Illness This 68-year-old female presents in the ED with a chief complaint syncope. For elevated liver enzymes. Upon assessment, the patient is currently intubated, medical record reveals, as patient going in the restroom had another syncopal episode leading to cardiac arrest. The patient total downtime of approximately 18 minutes with successful CPR with ROSC. The patient was given one round of epinephrine during the code. Currently on quadruple vasopressors all max out. Past Medical History Hypercholesterolemia Asthma Alcohol abuse HTN Allergies: Coded Allergies: Amoxicillin (Verified Allergy, Unknown, 05/24/24) Latex (Verified Allergy, Unknown, 07/01/21) Home Meds Active Scripts Meclizine HCl (Meclizine) 25 Mg Chw, 25 MG PO DAILY for 10 Days, #10 CHW Prov:TRE PHILIPPE MD 07/05/21 Reported Medications Brimonidine Tartrate (Brimonidine Tartrate) 0.15 % Analilia, 1 DROP OP TID, DROP 05/24/24 Omeprazole (Gnp Omeprazole) 20 Mg Tab, 1 TAB PO DAILY, #90 TAB 1 Refill 05/24/24 Travoprost (Travatan Z) 0.004 % Damián, 1 DROP EACHEYE QPM, #2.5 ML 2 Refills 05/24/24 Metoprolol Succinate (Metoprolol Succinate Er) 50 Mg Tab, 50 MG PO DAILY for 30 Days, MG 05/24/24 Atorvastatin Calcium (Lipitor) 10 Mg Tab, 1 TAB PO DAILY, #30 TAB 5 Refills 05/24/24 Venlafaxine Hydrochloride (Venlafaxine Hcl) 75 Mg Tab, 75 MG PO DAILY, TAB 05/24/24 Levothyroxine Sodium (Levothyroxine Sodium) 50 Mcg Tab, 75 MCG PO QAM for 30 Days, MCG 05/24/24 Hydrochlorothiazide (Hydrochlorothiazide) 25 Mg Tab, 25 MG PO DAILY for 30 Days, MG 05/24/24 Current Medications Current Medications Medications (Trade) Dose Ordered Sig/Saji Route PRN Reason Start Time Stop Time Status Last Admin Pantoprazole Sodium (Protonix) 40 mg DAILY IV 05/25/24 10:00 05/25/24 09:58 Thiamine HCl 100 mg DAILY IV 05/25/24 10:00 05/25/24 10:13 Folic Acid 1 mg/ Dextrose 50.2 ml @ 200.8 mls/ hr DAILY INJ 05/25/24 10:00 05/25/24 12:45 Epinephrine HCl 250 ml @ 7.5 mls/hr Q24H IV 05/24/24 23:15 05/25/24 09:12 DC 05/25/24 00:34 Potassium Chloride 50 ml @ 25 mls/hr Q2H IV 05/24/24 23:45 05/25/24 03:44 DC 05/25/24 02:06 Hydrocortisone Sodium Succinate (Solu-CORTEF INJECTION) 100 mg Q8H IV 05/25/24 09:00 05/25/24 17:04 Albuterol (Ventolin Medneb) 2.5 mg Q4HP PRN NEB SHORTNESS OF BREATH 05/25/24 01:00 05/25/24 22:21 Ipratropium Maurice (Atrovent Medneb) 0.5 mg Q4HR NEB 05/25/24 02:00 05/25/24 22:21 Phenylephrine HCl 80 mg/Sodium Chloride 250 ml @ 7.5 mls/hr Q24H IV 05/25/24 07:45 05/25/24 15:00 Norepinephrine Bitartrate 32 mg/ Sodium Chloride 250 ml @ 0.938 mls/ hr Q24H IV 05/25/24 07:45 05/25/24 08:30 Epinephrine HCl 16 mg/Dextrose 250 ml @ 1.875 mls/ hr Q24H IV 05/25/24 07:45 05/25/24 08:30 Sodium Chloride 1,000 ml @ 75 mls/hr [id number] IV 05/25/24 09:45 05/25/24 11:30 Vital Signs Vital Signs Date Time Temp Pulse Resp B/P (MAP) Pulse Ox O2 Delivery O2 Flow Rate FiO2 05/25/24 22:30 98.1 120 30 61/53 (56) 208.6 05/25/24 22:00 70 05/25/24 22:00 Mechanical Ventilator 05/25/24 20:30 81 05/25/24 20:00 Physical Exam Patient was seen in ER bed six She is intubated and sedated HEAD: Head is normocephalic and atraumatic. EYES: Pupils sluggish ENT: Moist mucous membranes. NECK: Supple, No masses, Full range of motion. RESPIRATORY: Diminished lung sounds. Orally vented CV: Regular rate and rhythm. Hypotensive. No edema GI/: Active bowel sounds, soft, nondistended, nontender. INTEGUMENTARY: Warm and dry. No obvious rashes. NEUROLOGIC: Sedated Labs/Diagnostic Data Labs Test 05/25/24 20:54 05/25/24 20:20 05/25/24 14:05 05/25/24 07:24 Range/Units Sodium Level 148 H 136-145 mmol/L Potassium Level 4.5 3.5-5.1 mmol/L Chloride Level 109 H 98-107 mmol/L Carbon Dioxide Level 11 L 20-31 mmol/L Anion Gap 28 H 5-15 Blood Urea Nitrogen 20 9-23 mg/dL Creatinine 2.11 #H 0.550-1.02 mg/dL Glomerular Filtration Rate Calc 25 >90 mL/min BUN/Creatinine Ratio 9.5 L 10.0-20.0 Serum Glucose 52 L 74-106 mg/dL Calcium Level 6.2 L 8.7-10.4 mg/dL Blood Gas Specimen Type Arterial Blood Gas Sample Site Arterial line Blood Gas Patient Temperature 37.0 Arterial Blood Date Drawn [id number] Arterial Blood pH 6.888 *L 7.350-7.450 Arterial Blood Partial Pressure CO2 25.9 L 32.0-45.0 mmHg Arterial Blood Partial Pressure O2 96.2 83.0-108.0 mmHg Arterial Blood HCO3 4.8 L 21.0-28.0 mmol/L Arterial Blood Oxygen Saturation 94.7 94.0-98.0 % Arterial Blood Base Excess -27.5 L -2.0-3.0 mmol/L Arterial Blood Oxyhemoglobin 93.8 L 94.0-98.0 % Arterial Blood Carboxyhemoglobin 0.4 L 0.5-1.5 % Arterial Blood Methemoglobin 0.6 0.0-1.5 % Manjit Test N/a Blood Gas Total Hemoglobin 14.20 12.0-16.0 g/dL Blood Gas Set Respiration Rate 30.0 Blood Gas Modality Vent - ac FiO2 % 70.0 Blood Gas Tidal Volume 450.0 Blood Gas PEEP or CPAP 10.0 Blood Gas Critical Value Read Back Yes Blood Gas Notified Whom Md. evangelina goddard Blood Gas Notified Time [id number] Blood Gas Notified By Rt b cecilia Influenza Type A Antigen Negative Negative Influenza Type B Antigen Negative Negative SARS-CoV-2 Antigen (Rapid) Negative NEGATIVE Total Bilirubin 2.7 H 0.2-1.0 mg/dL Aspartate Amino Transferase (AST) 841 H 13-40 U/L Alanine Aminotransferase (ALT) 290 H 7-40 U/L Alkaline Phosphatase 150 H 46-116 U/L Total Protein 4.2 L 5.7-8.2 g/dL Albumin 2.3 L 3.2-4.8 g/dL Test 05/25/24 05:15 05/25/24 03:27 05/25/24 03:00 05/25/24 00:00 Range/Units White Blood Count 1.5 #*L 4.4-10.8 10^3/uL Red Blood Count 3.88 L 4.0-5.20 10^6/uL Hemoglobin 13.9 12.2-16.2 g/dL Hematocrit 41.4 # 36.0-46.0 % Mean Corpuscular Volume 106.8 #H 80.0-100.0 fL Mean Corpuscular Hemoglobin 35.8 H 28.0-32.0 pg Mean Corpuscular Hemoglobin Concent 33.5 32.0-36.0 g/dL Red Cell Distribution Width 15.1 H 11.8-14.3 % Platelet Count 162 140-450 10^3/uL Mean Platelet Volume 8.8 6.9-10.8 fL Neutrophils (%) (Auto) 77.3 37.0-80.0 % Lymphocytes (%) (Auto) 13.0 10.0-50.0 % Monocytes (%) (Auto) 5.9 0.0-12.0 % Eosinophils (%) (Auto) 3.7 0.0-7.0 % Basophils (%) (Auto) 0.1 0.0-2.0 % Neutrophils # (Auto) 1.2 L 1.6-8.6 10 ^3/uL Lymphocytes # (Auto) 0.2 L 0.4-5.4 10 ^3/uL Monocytes # (Auto) 0.1 0-1.3 10 ^3/uL Eosinophils # (Auto) 0.1 0-0.8 10 ^3/uL Basophils # (Auto) 0 0-0.2 10 ^3/uL Nucleated Red Blood Cells 1.6 % Platelet Estimate Adequate Macrocytosis Slight Blood Gas Spontaneous Rate 30 Urine Opiates Screen Neg NEGATIVE Urine Fentanyl Screen Neg NEGATIVE Urine Barbiturates Screen Neg NEGATIVE Urine Phencyclidine Screen Neg NEGATIVE Urine Amphetamines Screen Neg NEGATIVE Urine Benzodiazepines Screen Pos NEGATIVE Urine Cocaine Screen Neg NEGATIVE Urine Cannabinoids Screen Pos NEGATIVE Urine Color Yellow Yellow Urine Clarity Ex.turbid Clear Urine pH 6.0 5.0-9.0 Urine Specific [place] 1.040 H 1.001-1.035 Urine Protein 2+ H Negative Urine Ketones Negative Negative Urine Blood 3+ H Negative /uL Urine Nitrite Negative Negative Urine Bilirubin 1+ H Negative Urine Urobilinogen Normal Negative mg/dL Urine Leukocyte Esterase Negative Negative /uL Urine RBC 3 0 - 4 /hpf Urine Microscopic WBC 15 H 0-5 /HPF Urine Squamous Epithelial Cells Few <5 /hpf Urine Amorphous Crystals Few None Seen /hpf Urine Bacteria Few H None Seen /hpf Urine Glucose Trace Normal mg/dL Test 05/24/24 22:23 05/24/24 21:20 05/24/24 21:15 05/24/24 14:50 Range/Units Differential Total Cells Counted 100.0 100 Neutrophils % (Manual) 32 L 37.0-80.0 Band Neutrophils % (Manual) 4 Lymphocytes % (Manual) 48 10.0-50.0 Monocytes % (Manual) 16 H 0-12 Eosinophils % (Manual) 0 0-7 Basophils % (Manual) 0 0.0-2.0 Metamyelocytes % (manual) 0 Myelocytes % (Manual) 0 Promyelocytes % (Manual) 0 Blast Cells % (Manual) 0 Reactive Lymphocytes 0 Large Platelets Few Lactic Acid Level 7.8 *H 0.4-2.0 mmol/L Phosphorus Level 5.9 H 2.4-5.1 mg/dL Magnesium Level 1.9 1.6-2.6 mg/dL Troponin I High Sensitivity 57 *H </=34 ng/L B-Type Natriuretic Peptide 1520.38 0-100 pg/mL Triglycerides Level 295 H < 150 mg/dL Cholesterol Level 140 < 200 mg/dL LDL Cholesterol 6 < 100 mg/dL HDL Cholesterol 84 H 40-59 mg/dL Thyroid Stimulating Hormone (TSH) 7.86 H 0.55-4.78 uIU/mL POC Glucose 75 70-106 mg/dl Prothrombin Time 11.7 9.3-11.8 sec Prothrombin Time INR 1.12 0.9-1.15 Activated Partial Thromboplast Time 26.9 24.5-34.5 SEC D-Dimer, Quantitative 6.03 H 0.0-0.49 mg/L FEU Lactate Dehydrogenase 954 H 120-246 U/L Amylase Level 238 H 30-118 U/L Lipase 648 H 12-53 U/L Microbiology Date/Time Source Procedure Growth Status 05/24/24 14:50 Blood Blood Culture - Preliminary NO GROWTH AFTER 24 HOURS OF INCUBATION. Resulted Liver USG IMPRESSION: 1. Coarsened hepatic parenchymal echotexture and trace ascites. 2. Mild gallbladder wall thickening, trace pericholecystic fluid and increased prominence of the common bile duct. 3. Right pleural effusion. Problems(with codes): (1) Elevated liver enzymes (2) Shock liver (3) Cardiopulmonary resuscitation (CPR)-only resuscitation status (4) Vertigo (5) Dizziness (6) Syncope and collapse Plan/Recommendation Plan Mild pancytopenia suggestive of possible viral infection I ordered a COVID test and influenza both of which came back negative Liver enzymes elevated due to hypoxic liver injury Continue to monitor labs Prognosis is guarded Plan discussed with: Daughter, Other (ER Nurse) TRACEY PARADA MD May 25, 2024 22:57
--- NOTE | 2024-05-25 23:28 | DVHINCON2 ---
Date Seen: May 25, 2024 Referring Physician ALEJANDRINA Alex Reason for Consultation s/p CPR History of Present Illness This is a 68-year-old female with a past medical history of hypertension, hyperlipidemia, fibromyalgia, obesity, and asthma who presented to the ED with a complaint of a syncopal episode associated with nausea, vomiting, diarrhea, and dizziness x 2 days. Upon assessment, the patient is currently intubated, medical record revealed, as patient going in the restroom had another syncopal episode leading to cardiac arrest. The patient's total downtime was approximately 18 minutes with successful ROSC with CPR. The patient was given one round of epinephrine during the code. Currently on quadruple vasopressors all max out. Cardiology is consulted for status post CPR. Twelve lead ECG revealing sinus rhythm. Mildly elevated troponin. Chest x-ray showed low lung volumes with bronchovascular crowding. Patient was admitted to the hospital ICU. Past Medical History As stated in HPI Past Surgical History Unknown Allergies: Coded Allergies: Amoxicillin (Verified Allergy, Unknown, 05/24/24) Latex (Verified Allergy, Unknown, 07/01/21) Home Meds Active Scripts Meclizine HCl (Meclizine) 25 Mg Chw, 25 MG PO DAILY for 10 Days, #10 CHW Prov:RTE PHILIPPE MD 07/05/21 Reported Medications Brimonidine Tartrate (Brimonidine Tartrate) 0.15 % Analilia, 1 DROP OP TID, DROP 05/24/24 Omeprazole (Gnp Omeprazole) 20 Mg Tab, 1 TAB PO DAILY, #90 TAB 1 Refill 05/24/24 Travoprost (Travatan Z) 0.004 % Damián, 1 DROP EACHEYE QPM, #2.5 ML 2 Refills 05/24/24 Metoprolol Succinate (Metoprolol Succinate Er) 50 Mg Tab, 50 MG PO DAILY for 30 Days, MG 05/24/24 Atorvastatin Calcium (Lipitor) 10 Mg Tab, 1 TAB PO DAILY, #30 TAB 5 Refills 05/24/24 Venlafaxine Hydrochloride (Venlafaxine Hcl) 75 Mg Tab, 75 MG PO DAILY, TAB 05/24/24 Levothyroxine Sodium (Levothyroxine Sodium) 50 Mcg Tab, 75 MCG PO QAM for 30 Days, MCG 05/24/24 Hydrochlorothiazide (Hydrochlorothiazide) 25 Mg Tab, 25 MG PO DAILY for 30 Days, MG 05/24/24 Current Medications Current Medications Medications (Trade) Dose Ordered Sig/Saji Route PRN Reason Start Time Stop Time Status Last Admin Folic Acid 1 mg/ Multivitamins 10 ml/Magnesium Sulfate 8 meq/ Thiamine HCl 100 mg/Dextrose 1,013.2 ml @ 125.001 mls/hr DAILY@1800 INJ 05/24/24 18:00 05/26/24 17:59 05/25/24 00:59 Norepinephrine Bitartrate 250 ml @ 3.75 mls/hr Q24H IV 05/24/24 15:45 05/25/24 09:11 DC 05/25/24 05:40 Potassium Chloride 50 ml @ 25 mls/hr Q2H IV 05/24/24 18:15 05/24/24 22:07 DC Ondansetron HCl (Zofran) 4 mg Q4HP PRN IV NAUSEA / VOMITING 05/24/24 17:15 Acetaminophen (Tylenol Tablet) 650 mg Q6HP PRN PO PAIN SCALE 1-3 OR TEMP>100.4 05/24/24 17:15 Piperacillin Sod/ Tazobactam Sod 100 ml @ 25 mls/hr Q8HR IV 05/24/24 22:00 05/25/24 14:14 Sodium Chloride 1,000 ml @ 100 mls/hr Q10H IV 05/24/24 17:30 05/24/24 21:51 DC 05/24/24 18:33 Enoxaparin Sodium (Lovenox) 80 mg Q12HR SC 05/24/24 22:00 05/25/24 00:36 Pantoprazole Sodium (Protonix) 40 mg DAILY IV 05/25/24 10:00 05/25/24 09:58 Acetaminophen/ Hydrocodone Bitart ([place] 5/325MG Tab) 1 tab Q4HPRN PRN PO MODERATE PAIN (4-6 PAIN SCALE) 05/24/24 18:00 Propofol 100 ml @ 2.325 mls/ hr Q24H IV 05/24/24 21:45 05/25/24 07:11 Midazolam HCl 50 ml @ 1 mls/hr Q24H IV 05/24/24 21:45 05/24/24 22:10 Fentanyl Citrate 250 ml @ 2.5 mls/hr Q24H IV 05/24/24 21:45 05/25/24 07:30 Vancomycin HCl 0 ml @ 0 mls/hr UD IV 05/24/24 21:45 Thiamine HCl 100 mg DAILY IV 05/25/24 10:00 05/25/24 10:13 Folic Acid 1 mg/ Dextrose 50.2 ml @ 200.8 mls/ hr DAILY INJ 05/25/24 10:00 05/25/24 12:45 Vasopressin 20 units/Sodium Chloride 100 ml @ 9 mls/hr Q11H7M IV 05/24/24 22:45 05/25/24 05:47 Phenylephrine HCl 250 ml @ 30 mls/hr Q8H20M IV 05/24/24 22:45 05/25/24 09:12 DC 05/25/24 05:48 Epinephrine HCl 250 ml @ 7.5 mls/hr Q24H IV 05/24/24 23:15 05/25/24 09:12 DC 05/25/24 00:34 Potassium Chloride 50 ml @ 25 mls/hr Q2H IV 05/24/24 23:45 05/25/24 03:44 DC 05/25/24 02:06 Hydrocortisone Sodium Succinate (Solu-CORTEF INJECTION) 100 mg Q8H IV 05/25/24 09:00 05/25/24 09:58 Albuterol (Ventolin Medneb) 2.5 mg Q4HP PRN NEB SHORTNESS OF BREATH 05/25/24 01:00 05/25/24 05:56 Ipratropium [place] (Atrovent Medneb) 0.5 mg Q4HR NEB 05/25/24 02:00 05/25/24 14:07 Phenylephrine HCl 80 mg/Sodium Chloride 250 ml @ 7.5 mls/hr Q24H IV 05/25/24 07:45 05/25/24 08:30 Norepinephrine Bitartrate 32 mg/ Sodium Chloride 250 ml @ 0.938 mls/ hr Q24H IV 05/25/24 07:45 05/25/24 08:30 Epinephrine HCl 16 mg/Dextrose 250 ml @ 1.875 mls/ hr Q24H IV 05/25/24 07:45 05/25/24 08:30 Sodium Chloride 1,000 ml @ 75 mls/hr [id number] IV 05/25/24 09:45 05/25/24 11:30 Review of Systems Unable to review: Patient is intubated Vital Signs Vital Signs Date Time Temp Pulse Resp B/P (MAP) Pulse Ox O2 Delivery O2 Flow Rate FiO2 05/25/24 14:07 135 30 77/69 (72) 93 70 05/25/24 14:00 98.4 98.4 05/25/24 07:30 Mechanical Ventilator+ 05/25/24 02:00 Physical Exam GENERAL: Ill appearing, intubated on ventilator. Obese. LUNGS: Diminished breath sounds. CARDIOVASCULAR: Heart sounds are good. ABDOMEN: Soft. Labs/Diagnostic Data Labs Test 05/25/24 14:20 05/25/24 14:05 05/25/24 07:24 05/25/24 05:15 Range/Units Blood Gas Specimen Type Arterial Blood Gas Sample Site Arterial line Blood Gas Patient Temperature 37.0 Arterial Blood Date Drawn [id number] Arterial Blood pH 6.935 *L 7.350-7.450 Arterial Blood Partial Pressure CO2 34.5 32.0-45.0 mmHg Arterial Blood Partial Pressure O2 106.5 83.0-108.0 mmHg Arterial Blood HCO3 7.2 L 21.0-28.0 mmol/L Arterial Blood Oxygen Saturation 96.0 94.0-98.0 % Arterial Blood Base Excess -24.7 L -2.0-3.0 mmol/L Arterial Blood Oxyhemoglobin 95.0 94.0-98.0 % Arterial Blood Carboxyhemoglobin 0.4 L 0.5-1.5 % Arterial Blood Methemoglobin 0.6 0.0-1.5 % Manjit Test N/a Blood Gas Total Hemoglobin 15.10 12.0-16.0 g/dL Blood Gas Set Respiration Rate 30.0 Blood Gas Modality Vent - ac FiO2 % 70.0 Blood Gas Tidal Volume 450.0 Blood Gas PEEP or CPAP 10.0 Blood Gas Critical Value Read Back Yes Blood Gas Notified Whom Jd parmar. Blood Gas Notified Time [id number] Blood Gas Notified By Luis Antonio hernandez Sodium Level 144 # 136-145 mmol/L Potassium Level 3.0 L 3.5-5.1 mmol/L Chloride Level 106 98-107 mmol/L Carbon Dioxide Level 18 L 20-31 mmol/L Anion Gap 20 H 5-15 Blood Urea Nitrogen 14 9-23 mg/dL Creatinine 1.34 H 0.550-1.02 mg/dL Glomerular Filtration Rate Calc 44 >90 mL/min BUN/Creatinine Ratio 10.4 10.0-20.0 Serum Glucose 161 H 74-106 mg/dL Calcium Level 6.7 L 8.7-10.4 mg/dL Total Bilirubin 2.7 H 0.2-1.0 mg/dL Aspartate Amino Transferase (AST) 841 H 13-40 U/L Alanine Aminotransferase (ALT) 290 H 7-40 U/L Alkaline Phosphatase 150 H 46-116 U/L Total Protein 4.2 L 5.7-8.2 g/dL Albumin 2.3 L 3.2-4.8 g/dL White Blood Count 1.5 #*L 4.4-10.8 10^3/uL Red Blood Count 3.88 L 4.0-5.20 10^6/uL Hemoglobin 13.9 12.2-16.2 g/dL Hematocrit 41.4 # 36.0-46.0 % Mean Corpuscular Volume 106.8 #H 80.0-100.0 fL Mean Corpuscular Hemoglobin 35.8 H 28.0-32.0 pg Mean Corpuscular Hemoglobin Concent 33.5 32.0-36.0 g/dL Red Cell Distribution Width 15.1 H 11.8-14.3 % Platelet Count 162 140-450 10^3/uL Mean Platelet Volume 8.8 6.9-10.8 fL Neutrophils (%) (Auto) 77.3 37.0-80.0 % Lymphocytes (%) (Auto) 13.0 10.0-50.0 % Monocytes (%) (Auto) 5.9 0.0-12.0 % Eosinophils (%) (Auto) 3.7 0.0-7.0 % Basophils (%) (Auto) 0.1 0.0-2.0 % Neutrophils # (Auto) 1.2 L 1.6-8.6 10 ^3/uL Lymphocytes # (Auto) 0.2 L 0.4-5.4 10 ^3/uL Monocytes # (Auto) 0.1 0-1.3 10 ^3/uL Eosinophils # (Auto) 0.1 0-0.8 10 ^3/uL Basophils # (Auto) 0 0-0.2 10 ^3/uL Nucleated Red Blood Cells 1.6 % Platelet Estimate Adequate Macrocytosis Slight Test 05/25/24 03:27 05/25/24 03:00 05/25/24 00:00 05/24/24 22:23 Range/Units Blood Gas Spontaneous Rate 30 Urine Opiates Screen Neg NEGATIVE Urine Fentanyl Screen Neg NEGATIVE Urine Barbiturates Screen Neg NEGATIVE Urine Phencyclidine Screen Neg NEGATIVE Urine Amphetamines Screen Neg NEGATIVE Urine Benzodiazepines Screen Pos NEGATIVE Urine Cocaine Screen Neg NEGATIVE Urine Cannabinoids Screen Pos NEGATIVE Urine Color Yellow Yellow Urine Clarity Ex.turbid Clear Urine pH 6.0 5.0-9.0 Urine Specific [place] 1.040 H 1.001-1.035 Urine Protein 2+ H Negative Urine Ketones Negative Negative Urine Blood 3+ H Negative /uL Urine Nitrite Negative Negative Urine Bilirubin 1+ H Negative Urine Urobilinogen Normal Negative mg/dL Urine Leukocyte Esterase Negative Negative /uL Urine RBC 3 0 - 4 /hpf Urine Microscopic WBC 15 H 0-5 /HPF Urine Squamous Epithelial Cells Few <5 /hpf Urine Amorphous Crystals Few None Seen /hpf Urine Bacteria Few H None Seen /hpf Urine Glucose Trace Normal mg/dL Test 05/24/24 21:20 05/24/24 21:15 05/24/24 14:50 Range/Units Differential Total Cells Counted 100.0 100 Neutrophils % (Manual) 32 L 37.0-80.0 Band Neutrophils % (Manual) 4 Lymphocytes % (Manual) 48 10.0-50.0 Monocytes % (Manual) 16 H 0-12 Eosinophils % (Manual) 0 0-7 Basophils % (Manual) 0 0.0-2.0 Metamyelocytes % (manual) 0 Myelocytes % (Manual) 0 Promyelocytes % (Manual) 0 Blast Cells % (Manual) 0 Reactive Lymphocytes 0 Large Platelets Few Lactic Acid Level 7.8 *H 0.4-2.0 mmol/L Phosphorus Level 5.9 H 2.4-5.1 mg/dL Magnesium Level 1.9 1.6-2.6 mg/dL Troponin I High Sensitivity 57 *H </=34 ng/L B-Type Natriuretic Peptide 1520.38 0-100 pg/mL Triglycerides Level 295 H < 150 mg/dL Cholesterol Level 140 < 200 mg/dL LDL Cholesterol 6 < 100 mg/dL HDL Cholesterol 84 H 40-59 mg/dL Thyroid Stimulating Hormone (TSH) 7.86 H 0.55-4.78 uIU/mL POC Glucose 75 70-106 mg/dl Prothrombin Time 11.7 9.3-11.8 sec Prothrombin Time INR 1.12 0.9-1.15 Activated Partial Thromboplast Time 26.9 24.5-34.5 SEC D-Dimer, Quantitative 6.03 H 0.0-0.49 mg/L FEU Lactate Dehydrogenase 954 H 120-246 U/L Amylase Level 238 H 30-118 U/L Lipase 648 H 12-53 U/L Assessment CPR with ROSC. Sepsis with shock. Syncope and collapse, to rule out cardiac etiology. Elevated troponin, possible due to above. Elevated BNP. Dyslipidemia. Transaminitis, likely due to ETOH abuse. Positive D-dimer, PE ruled out. DEMIAN on CKD. Plan/Recommendation I agree with your ongoing assessment and care of plan. Patient has been seen by Erica Russ NP on my behalf, her and I discussed the plan with the patient. Echocardiogram evaluate cardiac function. Continue with vasopressors. Continue to monitor troponins and EKGs. IV fluid, antibiotics per primary team. Monitor kidney function. Patient in septic shock, is currently on quadruple vasopressors, all max out with systolic BP remains in 90s, very poor prognosis, should continue with cardiac surveillance, possible ischemic workup once condition is improved. Medical management for now. Consider goal of care. Additional plan as per the hospital course. Plan discussed with: Other NYHA Physical activity limitations: NA Date of Service: May 25, 2024 Billing Provider: ERICK SILVER MD Cardiology Common Codes: 53929-[id number] INP/OBS CARE (High), [id number] CARE 30-74 MIN ERICK SILVER MD May 25, 2024 14:49
[2024-05-26] VITALS (77 sets, daily range): BP systolic 24–60; BP diastolic 15–46; PULSE 0–127; RESP 0–32; TEMP 97.3–98.8; O2SAT 0–93
--- NOTE | 2024-05-26 01:54 | DVHSR ---
APPROVED REPORT EXAM: LIMITED Two-dimensional and M-mode echocardiogram with Doppler and color Doppler. Blood Pressure: 97/84 mmHg INDICATION Cardiac Arrest RISK FACTORS Height: 5' 4", Weight: 170 DIMENSIONS LVDd4.0 (3.8-5.7cm)LA (2D) (1.9-4.0cm)Aortic Root (2.0-3.7cm) LVDs4.0 (2.5-4.0cm)LA (MM) (1.9-4.0cm)Aortic Cusp Exc (1.5-2.0cm) EF (%) 2.0 (55-70%)Rt. Atrium (1.9-4.0cm)Asc. Aorta cm IVSd0.9 (0.7-1.1cm)RV (D) (1.8-2.4cm) PWd0.9 (0.7-1.1cm) Mitral Valve MitralMitral Stenosis E/A ratio0.02D MVAcm2 Aortic Valve Aortic ValveAortic Stenosis V10.60m/Amanda Mean GR.2mmHg V20.90m/Amanda Peak GR.3mmHg AI P 1/2 Cmoq218.76ms Tricuspid Valve TR Velocity2.00m/s [id number] Other Information Quality : Technically LimitedRhythm : Tachycardia Technically limited study due to body habitus, patient position and on vent. Conclusion MILD LVH AND MILD LV DIASTOLIC DYSFUNCTION LV EF IS ONLY 20% ENTIRE ANTERIOR WALL ,DISTAL HALF OF IVS AND LV APEX IS SEVERELY HYPOKINETIC AORTIC SCLEROSIS NO EFFUSION
--- NOTE | 2024-05-26 04:56 | DVH ---
CHEST RADIOGRAPH Indication: INTUBATED Technique: Single frontal view of the chest was obtained COMPARISON: XY CHEST XRAY 1 VIEW on DOS: 05/25/24, XY CHEST PORTABLE on DOS: 05/24/24, XY CHEST PORTABL E on DOS: 05/24/24, CHEST PORTABLE on DOS: 07/01/21, CXRP on DOS: 07/01/21 FINDINGS: Lines and Tubes: Endotracheal tube has been retracted and the tip projects approximately 4.8 cm above the level of the terrance, in satisfactory position. Enteric catheter is unchanged. There has been interval resolution of the right neck and supraclavicular subcutaneous emphysema. Lungs: Progressive interval decrease in patchy bilateral pulmonary airspace disease and increased pro minence of the pulmonary vascularity. Pleura: No effusion. No pneumothorax. Cardiomediastinal contours: Unremarkable Bones: Unremarkable IMPRESSION: 1. Interval improvement in bilateral pulmonary airspace disease and pulmonary vascular congestion. 2. Interval resolution of subcutaneous emphysema within the right neck. 3. Satisfactory interval retraction of the endotracheal tube.
[2024-05-26 05:45] LABS: Hemoglobin 12.6 g/dL (12.2-16.2)
[2024-05-26 05:45] LABS: Base Excess -28.8 mmol/L (-2.0-3.0)
[2024-05-26 05:49] LABS: Hematocrit 41.4 % (36.0-46.0); Mean Corpuscular Hemoglobin 35.9 pg (28.0-32.0); Mean Corpuscular Hgb Conc. 30.5 g/dL (32.0-36.0); Mean Corpuscular Volume 117.6 fL (80.0-100.0); Platelet Count (auto) 66 10^3/uL (140-450); Red Blood Cells 3.52 10^6/uL (4.0-5.20); Red Cell Distribution Width 16.3 % (11.8-14.3); White Blood Cell 6.5 10^3/uL (4.4-10.8)
[2024-05-26] MEDS: SODIUM BICARB 8.4% 50Meq/50ml SYR Vial IV ONE (06:24)
[2024-05-26 07:00] LABS: Basophils % (manual) 0 (0.0-2.0); Blast Cells 0; Metamyelocytes % 0; Myelocytes % 0; Promyelocytes % 0; Reactive Lymphocytes 0
--- NOTE | 2024-05-26 07:34 | DVHPN2 ---
Reviewed: Care Plan, H&P, Labs, Medications, Previous Orders, Radiology Changes from previous H/P or p: No Changes Eyes: Vision change, Other (Blurry vision) Gastrointestinal: Nausea, Vomiting, Diarrhea Objective Vitals Vital Signs Date Time Temp Pulse Resp B/P (MAP) Pulse Ox O2 Delivery O2 Flow Rate FiO2 05/26/24 06:50 117 30 35/32 (33) 70 05/26/24 06:45 98.8 209.8 05/26/24 06:30 57 05/26/24 06:00 Mechanical Ventilator+ 05/25/24 20:00 Intake/Output Intake and Output 05/26/24 07:00 Intake Total 4282.855 ml Output Total 60 ml Balance 4222.855 ml Intake Oral 0 ml IV Total 4282.855 ml Output Urine Total 60 ml Medications Current Medications Medications Dose Ordered Sig/Saji Route Start Time Stop Time Status Last Admin Dose Admin Folic Acid 1 mg/ Multivitamins 10 ml/Magnesium Sulfate 8 meq/ Thiamine HCl 100 mg/Dextrose 1,013.2 ml @ 125.001 mls/hr DAILY@1800 INJ 05/24/24 18:00 05/26/24 17:59 05/25/24 20:24 125.001 MLS/HR Ondansetron HCl 4 mg Q4HP PRN IV 05/24/24 17:15 Acetaminophen 650 mg Q6HP PRN PO 05/24/24 17:15 Piperacillin Sod/ Tazobactam Sod 100 ml @ 25 mls/hr Q8HR IV 05/24/24 22:00 05/26/24 05:38 25 MLS/HR Enoxaparin Sodium 80 mg Q12HR SC 05/24/24 22:00 05/25/24 00:36 80 MG Pantoprazole Sodium 40 mg DAILY IV 05/25/24 10:00 05/25/24 09:58 40 MG Acetaminophen/ Hydrocodone Bitart 1 tab Q4HPRN PRN PO 05/24/24 18:00 Propofol 100 ml @ 2.325 mls/ hr Q24H IV 05/24/24 21:45 05/25/24 07:11 2.325 MLS/HR Midazolam HCl 50 ml @ 1 mls/hr Q24H IV 05/24/24 21:45 05/24/24 22:10 1 MLS/HR Fentanyl Citrate 250 ml @ 2.5 mls/hr Q24H IV 05/24/24 21:45 05/25/24 07:30 2.5 MLS/HR Vancomycin HCl 0 ml @ 0 mls/hr UD IV 05/24/24 21:45 Thiamine HCl 100 mg DAILY IV 05/25/24 10:00 05/25/24 10:13 100 MG Folic Acid 1 mg/ Dextrose 50.2 ml @ 200.8 mls/ hr DAILY INJ 05/25/24 10:00 05/25/24 12:45 200.8 MLS/HR Vasopressin 20 units/Sodium Chloride 100 ml @ 9 mls/hr Q11H7M IV 05/24/24 22:45 05/26/24 04:30 9 MLS/HR Hydrocortisone Sodium Succinate 100 mg Q8H IV 05/25/24 09:00 05/26/24 00:50 100 MG Albuterol 2.5 mg Q4HP PRN NEB 05/25/24 01:00 05/26/24 03:17 2.5 MG Ipratropium [place] 0.5 mg Q4HR NEB 05/25/24 02:00 05/26/24 03:17 0.5 MG Phenylephrine HCl 80 mg/Sodium Chloride 250 ml @ 7.5 mls/hr Q24H IV 05/25/24 07:45 05/25/24 23:15 33.75 MLS/HR Norepinephrine Bitartrate 32 mg/ Sodium Chloride 250 ml @ 0.938 mls/ hr Q24H IV 05/25/24 07:45 05/26/24 00:48 14.063 MLS/HR Epinephrine HCl 16 mg/Dextrose 250 ml @ 1.875 mls/ hr Q24H IV 05/25/24 07:45 05/25/24 08:30 9.375 MLS/HR Sodium Chloride 1,000 ml @ 75 mls/hr [id number] IV 05/25/24 09:45 05/26/24 03:37 75 MLS/HR Laboratory Results Laboratory Tests 05/25/24 20:54 05/26/24 05:21 Chemistry Test 05/25/24 20:54 Calcium Level 6.2 mg/dL (8.7-10.4) L Urinalysis Test 05/25/24 00:00 Urine Color Yellow (Yellow) Urine Clarity Ex.turbid (Clear) Urine pH 6.0 (5.0-9.0) Urine Specific [place] 1.040 (1.001-1.035) Urine Protein 2+ (Negative) H Urine Ketones Negative (Negative) Urine Blood 3+ /uL (Negative) H Urine Nitrite Negative (Negative) Urine Bilirubin 1+ (Negative) H Urine Urobilinogen Normal mg/dL (Negative) Urine Leukocyte Esterase Negative /uL (Negative) Urine RBC 3 /hpf (0 - 4) Urine Microscopic WBC 15 /HPF (0-5) H Urine Squamous Epithelial Cells Few /hpf (<5) Urine Amorphous Crystals Few /hpf (None Seen) Urine Bacteria Few /hpf (None Seen) H Urine Glucose Trace mg/dL (Normal) Blood Gas Results Test 05/25/24 14:20 05/25/24 20:20 05/26/24 05:37 Arterial Blood pH 6.935 (7.350-7.450) 6.888 (7.350-7.450) 6.830 (7.350-7.450) FiO2 % 70.0 70.0 70.0 Microbiology Microbiology Date/Time Source Procedure Growth Status 05/24/24 14:50 Blood Blood Culture - Preliminary NO GROWTH AFTER 24 HOURS OF INCUBATION. Resulted Assessment/Plan Assessment/Plan Acute hypoxic respiratory failure status post intubated on 70 percent FiO2, consult for Dr. Miles for vent management appreciated CPR with ROSC Septic shock Shock liver Elevated troponin, seen by Dr. Retana Autonomic instability Intractable nausea, vomiting, and diarrhea Blurry vision Dizziness Hypokalemia Elevated D-dimer PE Ruled out DVT ruled out DEMIAN Transaminitis secondary to possible alcohol abuse: GI consult by Dr.N Carter ablation Hypotension Hypercholesterolemia asthma Chronic back pain Time spent 70 minutes Advanced care planning time 20 minutes Patient is DNR Discussed with the management diagnosis and poor prognosis with the patient's family at bedside Patient's son and [id number] at bedside Plan discussed with: Son, Other ([id number] RN) My Orders Orders - MADDISON BUTLER MD Procedure Category Date Status Time Sodium Chloride 0.9% PHA 05/25/24 In Process 09:[address] 05/25/24 Resulted 09:45 Communication Order ORDERS 05/25/24 Transmitted 08:30 Bilat Lower Dvt US 05/25/24 Resulted 13:52 Date of Service: May 26, 2024 Billing Provider: MADDISON BUTLER MD Common Visit Codes: [id number] CARE 30-74 MIN MADDISON BUTLER MD May 26, 2024 07:34
[2024-05-26 09:24] LABS: Band Neutrophils % (manual) 6; Eosinophils % (manual) 1 (0-7); Lymphocytes % (manual) 24 (10.0-50.0); Monocytes % (manual) 14 (0-12); Platelet Estimate Decreased
[2024-05-26 10:03] LABS: Hematocrit 48.2 % (36.0-46.0); Hemoglobin 14.3 g/dL (12.2-16.2); Mean Corpuscular Hemoglobin 35.4 pg (28.0-32.0); Mean Corpuscular Hgb Conc. 29.7 g/dL (32.0-36.0); Mean Corpuscular Volume 119.1 fL (80.0-100.0); Platelet Count (auto) 64 10^3/uL (140-450); Red Blood Cells 4.05 10^6/uL (4.0-5.20); Red Cell Distribution Width 16.7 % (11.8-14.3); White Blood Cell 15.7 10^3/uL (4.4-10.8)
[2024-05-26 10:05] LABS: Basophils % (manual) 0 (0.0-2.0); Eosinophils % (manual) 0 (0-7); Metamyelocytes % 0; Myelocytes % 0; Promyelocytes % 0; Reactive Lymphocytes 0
[2024-05-26 10:39] LABS: Anion Gap 33.00001 (5-15)
[2024-05-26 10:45] LABS: BUN/Creatinine Ratio 9.1 (10.0-20.0)
[2024-05-26 11:01] LABS: Potassium 5.2 mmol/L (3.5-5.1); Sodium 148 mmol/L (136-145)
[2024-05-26 11:02] LABS: Alanine Aminotransferase 953 U/L (7-40); Albumin 1.9 g/dL (3.2-4.8); Alkaline Phosphatase 387 U/L (46-116); Aspartate Aminotransferase > 6000 U/L (13-40); Blood Urea Nitrogen 20 mg/dL (9-23); Calcium 6.2 mg/dL (8.7-10.4); Chloride 105 mmol/L (98-107); Magnesium 2.7 mg/dL (1.6-2.6); Phosphorus 12.4 mg/dL (2.4-5.1); Total Protein 3.8 g/dL (5.7-8.2)
[2024-05-26 11:03] LABS: Carbon Dioxide < 10 mmol/L (20-31); Glucose 33 mg/dL (74-106)
[2024-05-26 11:20] LABS: Band Neutrophils % (manual) 7; Blast Cells 1; Lymphocytes % (manual) 13 (10.0-50.0); Monocytes % (manual) 18 (0-12); Platelet Estimate Decreased
[2024-05-26] MEDS: ALBUMIN 25% 50 ML IV SCH (11:27)
[2024-05-26] MEDS: D5W/SOD CHLO 0.9% 1,000 ML IV SCH (11:28)
[2024-05-26] MEDS ORDERED: EPINEPHrine HCL 1 MG/10 ML SYRG IV ONE (11:29)
[2024-05-26] MEDS: DEXTROSE (50%) 50ML SYRG IV ONE (11:33)
--- NOTE | 2024-05-26 11:52 | DVHINCON2 ---
Date of service: May 26, [address] Winter Reason for Consultation DEMIAN History of Present Illness 68-year-old female past medical history of hypertension, hyperlipidemia, and glaucoma, COPD presents to the hospital complaining of dizziness change in vision. Her hospital course was notable for hypotension and shock, hospital day two patient was noted to have cardiac arrest with return of spontaneous circulation, patient was started on pressors intubated imaging done of the head abdomen and ultrasound of the kidneys. Nephrology consulted on hospital day two for acute kidney injury. Patient is currently is maxed out on four pressors without any meaningful blood pressure on arterial line. Patient has mottled appearance over her entire body Gomez catheter is no urinary output. Noted to have a pH of less than 7.0 on blood gas Allergies: Coded Allergies: Amoxicillin (Verified Allergy, Unknown, 05/24/24) Latex (Verified Allergy, Unknown, 07/01/21) Home Meds Active Scripts Meclizine HCl (Meclizine) 25 Mg Chw, 25 MG PO DAILY for 10 Days, #10 CHW Prov:TRE PHILIPPE MD 07/05/21 Reported Medications Brimonidine Tartrate (Brimonidine Tartrate) 0.15 % Analilia, 1 DROP OP TID, DROP 05/24/24 Omeprazole (Gnp Omeprazole) 20 Mg Tab, 1 TAB PO DAILY, #90 TAB 1 Refill 05/24/24 Travoprost (Travatan Z) 0.004 % Damián, 1 DROP EACHEYE QPM, #2.5 ML 2 Refills 05/24/24 Metoprolol Succinate (Metoprolol Succinate Er) 50 Mg Tab, 50 MG PO DAILY for 30 Days, MG 05/24/24 Atorvastatin Calcium (Lipitor) 10 Mg Tab, 1 TAB PO DAILY, #30 TAB 5 Refills 05/24/24 Venlafaxine Hydrochloride (Venlafaxine Hcl) 75 Mg Tab, 75 MG PO DAILY, TAB 05/24/24 Levothyroxine Sodium (Levothyroxine Sodium) 50 Mcg Tab, 75 MCG PO QAM for 30 Days, MCG 05/24/24 Hydrochlorothiazide (Hydrochlorothiazide) 25 Mg Tab, 25 MG PO DAILY for 30 Days, MG 05/24/24 Current Medications Current Medications Medications (Trade) Dose Ordered Sig/Saji Route PRN Reason Start Time Stop Time Status Last Admin Sodium Bicarbonate 150 ml/Dextrose 1,150 ml @ 70 mls/hr [id number] IV 05/26/24 10:00 05/26/24 11:57 Albumin Human 50 ml @ 100 mls/hr Q8H IV 05/26/24 10:00 05/27/24 02:29 05/26/24 11:27 Dextrose/Sodium Chloride 1,000 ml @ 100 mls/hr Q10H IV 05/26/24 11:15 05/26/24 11:28 Review of Systems Can not obtain due to critical illness H&P Exam Vital Signs/I&O Vital Sign Date Time Temp Pulse Resp B/P (MAP) Pulse Ox O2 Delivery O2 Flow Rate FiO2 05/26/24 12:00 101 05/26/24 12:00 30 Mechanical Ventilator+ 60 60 05/26/24 11:39 55/35 (42) 05/26/24 10:00 51 05/26/24 08:15 98.8 209.8 05/25/24 20:00 Intake and Output 05/25/24 05/26/24 19:00 07:00 Intake Total 1381.305 ml 2901.55 ml Output Total 60 ml Balance 1381.305 ml 2841.55 ml Intake Oral 0 ml IV Total 1381.305 ml 2901.55 ml Output Urine Total 60 ml Physical Exam Critically ill elderly female intubated, sedated, on multiple pressors, diffuse mottling of the skin, faint pulses only intermittently felt and minimal readings on arterial line Gomez catheter without urine Labs/Diagnostic Data Labs/Diagnostic Data Laboratory Tests Test 05/26/24 09:43 05/26/24 05:37 05/26/24 05:21 05/26/24 01:56 Range/Units White Blood Count 15.7 #H 6.5 # 4.4-10.8 10^3/uL Red Blood Count 4.05 3.52 L 4.0-5.20 10^6/uL Hemoglobin 14.3 12.6 12.2-16.2 g/dL Hematocrit 48.2 #H 41.4 36.0-46.0 % Mean Corpuscular Volume 119.1 H 117.6 #H 80.0-100.0 fL Mean Corpuscular Hemoglobin 35.4 H 35.9 H 28.0-32.0 pg Mean Corpuscular Hemoglobin Concent 29.7 L 30.5 L 32.0-36.0 g/dL Red Cell Distribution Width 16.7 H 16.3 H 11.8-14.3 % Platelet Count 64 L 66 L 140-450 10^3/uL Mean Platelet Volume 9.7 9.2 6.9-10.8 fL Neutrophils (%) (Auto) 37.0-80.0 % Lymphocytes (%) (Auto) 10.0-50.0 % Monocytes (%) (Auto) 0.0-12.0 % Basophils (%) (Auto) 0.0-2.0 % Neutrophils # (Auto) 1.6-8.6 10 ^3/uL Lymphocytes # (Auto) 0.4-5.4 10 ^3/uL Monocytes # (Auto) 0-1.3 10 ^3/uL Differential Total Cells Counted 100.0 100.0 100 Neutrophils % (Manual) 61 55 37.0-80.0 Band Neutrophils % (Manual) 7 6 Lymphocytes % (Manual) 13 24 10.0-50.0 Monocytes % (Manual) 18 H 14 H 0-12 Eosinophils % (Manual) 0 1 0-7 Basophils % (Manual) 0 0 0.0-2.0 Metamyelocytes % (manual) 0 0 Myelocytes % (Manual) 0 0 Promyelocytes % (Manual) 0 0 Blast Cells % (Manual) 1 0 Nucleated Red Blood Cells 12.0 13.0 % Reactive Lymphocytes 0 0 Platelet Estimate Decreased Decreased Sodium Level 148 H 136-145 mmol/L Potassium Level 5.2 H 3.5-5.1 mmol/L Chloride Level 105 98-107 mmol/L Carbon Dioxide Level < 10 *L 20-31 mmol/L Anion Gap 33.91690 H 5-15 Blood Urea Nitrogen 20 9-23 mg/dL Creatinine 2.20 H 2.32 H 0.550-1.02 mg/dL Glomerular Filtration Rate Calc 24 23 >90 mL/min BUN/Creatinine Ratio 9.1 L 10.0-20.0 Serum Glucose 33 *L 74-106 mg/dL Calcium Level 6.2 L 8.7-10.4 mg/dL Phosphorus Level 12.4 H 2.4-5.1 mg/dL Magnesium Level 2.7 H 1.6-2.6 mg/dL Total Bilirubin 3.0 H 0.2-1.0 mg/dL Aspartate Amino Transferase (AST) > 6000 H 13-40 U/L Alanine Aminotransferase (ALT) 953 H 7-40 U/L Alkaline Phosphatase 387 H 46-116 U/L Total Protein 3.8 L 5.7-8.2 g/dL Albumin 1.9 L 3.2-4.8 g/dL Blood Gas Specimen Type Arterial Blood Gas Sample Site Arterial line Blood Gas Patient Temperature 37.0 Arterial Blood Date Drawn [id number] Arterial Blood pH 6.830 *L 7.350-7.450 Arterial Blood Partial Pressure CO2 28.2 L 32.0-45.0 mmHg Arterial Blood Partial Pressure O2 87.2 83.0-108.0 mmHg Arterial Blood HCO3 4.6 L 21.0-28.0 mmol/L Arterial Blood Oxygen Saturation 92.9 L 94.0-98.0 % Arterial Blood Base Excess -28.8 L -2.0-3.0 mmol/L Arterial Blood Oxyhemoglobin 92.0 L 94.0-98.0 % Arterial Blood Carboxyhemoglobin 0.4 L 0.5-1.5 % Arterial Blood Methemoglobin 0.6 0.0-1.5 % Manjit Test N/a Blood Gas Total Hemoglobin 13.20 12.0-16.0 g/dL Blood Gas Set Respiration Rate 30.0 Blood Gas Modality Vent - ac FiO2 % 70.0 Blood Gas Tidal Volume 450.0 Blood Gas PEEP or CPAP 10.0 Blood Gas Critical Value Read Back Yes Blood Gas Notified Whom Jd parmar. Blood Gas Notified Time [id number] Blood Gas Notified By Luis Antonio hernandez Random Vancomycin Level 20.0 H 5-10 ug/mL POC Glucose 174 H 70-106 mg/dl Test 05/25/24 21:56 05/25/24 20:54 05/25/24 20:20 05/25/24 14:20 Range/Units POC Glucose 41 *L 70-106 mg/dl Sodium Level 148 H 136-145 mmol/L Potassium Level 4.5 3.5-5.1 mmol/L Chloride Level 109 H 98-107 mmol/L Carbon Dioxide Level 11 L 20-31 mmol/L Anion Gap 28 H 5-15 Blood Urea Nitrogen 20 9-23 mg/dL Creatinine 2.11 #H 0.550-1.02 mg/dL Glomerular Filtration Rate Calc 25 >90 mL/min BUN/Creatinine Ratio 9.5 L 10.0-20.0 Serum Glucose 52 L 74-106 mg/dL Calcium Level 6.2 L 8.7-10.4 mg/dL Blood Gas Specimen Type Arterial Arterial Blood Gas Sample Site Arterial line Arterial line Blood Gas Patient Temperature 37.0 37.0 Arterial Blood Date Drawn [id number] Arterial Blood pH 6.888 *L 6.935 *L 7.350-7.450 Arterial Blood Partial Pressure CO2 25.9 L 34.5 32.0-45.0 mmHg Arterial Blood Partial Pressure O2 96.2 106.5 83.0-108.0 mmHg Arterial Blood HCO3 4.8 L 7.2 L 21.0-28.0 mmol/L Arterial Blood Oxygen Saturation 94.7 96.0 94.0-98.0 % Arterial Blood Base Excess -27.5 L -24.7 L -2.0-3.0 mmol/L Arterial Blood Oxyhemoglobin 93.8 L 95.0 94.0-98.0 % Arterial Blood Carboxyhemoglobin 0.4 L 0.4 L 0.5-1.5 % Arterial Blood Methemoglobin 0.6 0.6 0.0-1.5 % Manjit Test N/a N/a Blood Gas Total Hemoglobin 14.20 15.10 12.0-16.0 g/dL Blood Gas Set Respiration Rate 30.0 30.0 Blood Gas Modality Vent - ac Vent - ac FiO2 % 70.0 70.0 Blood Gas Tidal Volume 450.0 450.0 Blood Gas PEEP or CPAP 10.0 10.0 Blood Gas Critical Value Read Back Yes Yes Blood Gas Notified Whom Md. evangelina Miles md. Blood Gas Notified Time [id number] Blood Gas Notified By Rt janis Salmon reference data expert Test 05/25/24 14:05 05/25/24 07:24 05/25/24 05:56 05/25/24 05:15 Range/Units Influenza Type A Antigen Negative Negative Influenza Type B Antigen Negative Negative SARS-CoV-2 Antigen (Rapid) Negative NEGATIVE Sodium Level 144 # 136-145 mmol/L Potassium Level 3.0 L 3.5-5.1 mmol/L Chloride Level 106 98-107 mmol/L Carbon Dioxide Level 18 L 20-31 mmol/L Anion Gap 20 H 5-15 Blood Urea Nitrogen 14 9-23 mg/dL Creatinine 1.34 H 0.550-1.02 mg/dL Glomerular Filtration Rate Calc 44 >90 mL/min BUN/Creatinine Ratio 10.4 10.0-20.0 Serum Glucose 161 H 74-106 mg/dL Calcium Level 6.7 L 8.7-10.4 mg/dL Total Bilirubin 2.7 H 0.2-1.0 mg/dL Aspartate Amino Transferase (AST) 841 H 13-40 U/L Alanine Aminotransferase (ALT) 290 H 7-40 U/L Alkaline Phosphatase 150 H 46-116 U/L Total Protein 4.2 L 5.7-8.2 g/dL Albumin 2.3 L 3.2-4.8 g/dL Blood Gas Specimen Type Arterial Blood Gas Sample Site Arterial line Blood Gas Patient Temperature 37.0 Arterial Blood Date Drawn [id number] Arterial Blood pH 7.271 L 7.350-7.450 Arterial Blood Partial Pressure CO2 33.2 32.0-45.0 mmHg Arterial Blood Partial Pressure O2 138.5 H 83.0-108.0 mmHg Arterial Blood HCO3 14.9 L 21.0-28.0 mmol/L Arterial Blood Oxygen Saturation 99.0 H 94.0-98.0 % Arterial Blood Base Excess -10.8 L -2.0-3.0 mmol/L Arterial Blood Oxyhemoglobin 97.6 94.0-98.0 % Arterial Blood Carboxyhemoglobin 0.7 0.5-1.5 % Arterial Blood Methemoglobin 0.7 0.0-1.5 % Manjit Test N/a Blood Gas Total Hemoglobin 15.00 12.0-16.0 g/dL Blood Gas Set Respiration Rate 30.0 Blood Gas Modality Vent - ac FiO2 % 80.0 Blood Gas Tidal Volume 450.0 Blood Gas PEEP or CPAP 10.0 White Blood Count 1.5 #*L 4.4-10.8 10^3/uL Red Blood Count 3.88 L 4.0-5.20 10^6/uL Hemoglobin 13.9 12.2-16.2 g/dL Hematocrit 41.4 # 36.0-46.0 % Mean Corpuscular Volume 106.8 #H 80.0-100.0 fL Mean Corpuscular Hemoglobin 35.8 H 28.0-32.0 pg Mean Corpuscular Hemoglobin Concent 33.5 32.0-36.0 g/dL Red Cell Distribution Width 15.1 H 11.8-14.3 % Platelet Count 162 140-450 10^3/uL Mean Platelet Volume 8.8 6.9-10.8 fL Neutrophils (%) (Auto) 77.3 37.0-80.0 % Lymphocytes (%) (Auto) 13.0 10.0-50.0 % Monocytes (%) (Auto) 5.9 0.0-12.0 % Eosinophils (%) (Auto) 3.7 0.0-7.0 % Basophils (%) (Auto) 0.1 0.0-2.0 % Neutrophils # (Auto) 1.2 L 1.6-8.6 10 ^3/uL Lymphocytes # (Auto) 0.2 L 0.4-5.4 10 ^3/uL Monocytes # (Auto) 0.1 0-1.3 10 ^3/uL Eosinophils # (Auto) 0.1 0-0.8 10 ^3/uL Basophils # (Auto) 0 0-0.2 10 ^3/uL Nucleated Red Blood Cells 1.6 % Platelet Estimate Adequate Macrocytosis Slight Test 05/25/24 03:27 05/25/24 03:00 05/25/24 00:35 05/25/24 00:00 Range/Units Blood Gas Specimen Type Arterial Arterial Blood Gas Sample Site Arterial line Right radial Blood Gas Patient Temperature 37.0 37.0 Arterial Blood Date Drawn [id number] Arterial Blood pH 7.218 *L 7.134 *L 7.350-7.450 Arterial Blood Partial Pressure CO2 36.3 43.1 32.0-45.0 mmHg Arterial Blood Partial Pressure O2 132.2 H 86.7 83.0-108.0 mmHg Arterial Blood HCO3 14.5 L 14.1 L 21.0-28.0 mmol/L Arterial Blood Oxygen Saturation 98.5 H 95.2 94.0-98.0 % Arterial Blood Base Excess -12.4 L -14.6 L -2.0-3.0 mmol/L Arterial Blood Oxyhemoglobin 97.4 94.1 94.0-98.0 % Arterial Blood Carboxyhemoglobin 0.2 L 0.6 0.5-1.5 % Arterial Blood Methemoglobin 0.9 0.6 0.0-1.5 % Manjit Test N/a Modified Blood Gas Total Hemoglobin 14.80 15.50 12.0-16.0 g/dL Blood Gas Set Respiration Rate 30.0 26.0 Blood Gas Modality Vent - ac Vent - ac Blood Gas Spontaneous Rate 30 26 FiO2 % 90.0 100.0 Blood Gas Tidal Volume 450.0 450.0 Blood Gas PEEP or CPAP 10.0 10.0 Blood Gas Critical Value Read Back Yes Yes Blood Gas Notified Whom dany Man Dr. Blood Gas Notified Time [id number] Blood Gas Notified By Urine Opiates Screen Neg NEGATIVE Urine Fentanyl Screen Neg NEGATIVE Urine Barbiturates Screen Neg NEGATIVE Urine Phencyclidine Screen Neg NEGATIVE Urine Amphetamines Screen Neg NEGATIVE Urine Benzodiazepines Screen Pos NEGATIVE Urine Cocaine Screen Neg NEGATIVE Urine Cannabinoids Screen Pos NEGATIVE Urine Color Yellow Yellow Urine Clarity Ex.turbid Clear Urine pH 6.0 5.0-9.0 Urine Specific [place] 1.040 H 1.001-1.035 Urine Protein 2+ H Negative Urine Ketones Negative Negative Urine Blood 3+ H Negative /uL Urine Nitrite Negative Negative Urine Bilirubin 1+ H Negative Urine Urobilinogen Normal Negative mg/dL Urine Leukocyte Esterase Negative Negative /uL Urine RBC 3 0 - 4 /hpf Urine Microscopic WBC 15 H 0-5 /HPF Urine Squamous Epithelial Cells Few <5 /hpf Urine Amorphous Crystals Few None Seen /hpf Urine Bacteria Few H None Seen /hpf Urine Glucose Trace Normal mg/dL Test 05/24/24 22:23 05/24/24 22:04 05/24/24 21:20 05/24/24 21:15 Range/Units Blood Gas Specimen Type Arterial Blood Gas Sample Site Right brachial Blood Gas Patient Temperature 37.0 Arterial Blood Date Drawn [id number] Arterial Blood pH 6.755 *L 7.350-7.450 Arterial Blood Partial Pressure CO2 63.7 *H 32.0-45.0 mmHg Arterial Blood Partial Pressure O2 73.2 L 83.0-108.0 mmHg Arterial Blood HCO3 8.7 L 21.0-28.0 mmol/L Arterial Blood Oxygen Saturation 80.6 *L 94.0-98.0 % Arterial Blood Base Excess -27.5 L -2.0-3.0 mmol/L Arterial Blood Oxyhemoglobin 79.7 L 94.0-98.0 % Arterial Blood Carboxyhemoglobin 0.4 L 0.5-1.5 % Arterial Blood Methemoglobin 0.7 0.0-1.5 % Manjit Test N/a Blood Gas Total Hemoglobin 14.90 12.0-16.0 g/dL Blood Gas Set Respiration Rate 20.0 Blood Gas Modality Vent - ac Blood Gas Spontaneous Rate 20 FiO2 % 100.0 Blood Gas Tidal Volume 450.0 Blood Gas PEEP or CPAP 5.0 Blood Gas Critical Value Read Back Yes Blood Gas Notified Whom Dayan frey np Blood Gas Notified Time [id number] Blood Gas Notified By White Blood Count 3.6 #L 4.4-10.8 10^3/uL Red Blood Count 4.07 4.0-5.20 10^6/uL Hemoglobin 14.9 # 12.2-16.2 g/dL Hematocrit 47.2 #H 36.0-46.0 % Mean Corpuscular Volume 115.9 #H 80.0-100.0 fL Mean Corpuscular Hemoglobin 36.7 H 28.0-32.0 pg Mean Corpuscular Hemoglobin Concent 31.7 L 32.0-36.0 g/dL Red Cell Distribution Width 15.8 H 11.8-14.3 % Platelet Count 182 140-450 10^3/uL Mean Platelet Volume 8.3 6.9-10.8 fL Neutrophils (%) (Auto) 37.0-80.0 % Lymphocytes (%) (Auto) 10.0-50.0 % Monocytes (%) (Auto) 0.0-12.0 % Basophils (%) (Auto) 0.0-2.0 % Neutrophils # (Auto) 1.6-8.6 10 ^3/uL Lymphocytes # (Auto) 0.4-5.4 10 ^3/uL Monocytes # (Auto) 0-1.3 10 ^3/uL Differential Total Cells Counted 100.0 100 Neutrophils % (Manual) 32 L 37.0-80.0 Band Neutrophils % (Manual) 4 Lymphocytes % (Manual) 48 10.0-50.0 Monocytes % (Manual) 16 H 0-12 Eosinophils % (Manual) 0 0-7 Basophils % (Manual) 0 0.0-2.0 Metamyelocytes % (manual) 0 Myelocytes % (Manual) 0 Promyelocytes % (Manual) 0 Blast Cells % (Manual) 0 Nucleated Red Blood Cells 2.0 % Reactive Lymphocytes 0 Platelet Estimate [place] Large Platelets Few Macrocytosis Moderate Sodium Level 139 136-145 mmol/L Potassium Level 3.2 L 3.5-5.1 mmol/L Chloride Level 112 H 98-107 mmol/L Carbon Dioxide Level 11 L 20-31 mmol/L Anion Gap 16 H 5-15 Blood Urea Nitrogen 10 9-23 mg/dL Creatinine 1.23 H 0.550-1.02 mg/dL Glomerular Filtration Rate Calc 48 >90 mL/min BUN/Creatinine Ratio 8.1 L 10.0-20.0 Serum Glucose 87 74-106 mg/dL Lactic Acid Level 7.8 *H 0.4-2.0 mmol/L Calcium Level 7.1 L 8.7-10.4 mg/dL Phosphorus Level 5.9 H 2.4-5.1 mg/dL Magnesium Level 1.9 1.6-2.6 mg/dL Total Bilirubin 2.3 H 0.2-1.0 mg/dL Aspartate Amino Transferase (AST) 1011 H 13-40 U/L Alanine Aminotransferase (ALT) 350 H 7-40 U/L Alkaline Phosphatase 171 H 46-116 U/L Troponin I High Sensitivity 57 *H </=34 ng/L B-Type Natriuretic Peptide 1520.38 0-100 pg/mL Total Protein 4.8 L 5.7-8.2 g/dL Albumin 2.7 L 3.2-4.8 g/dL Triglycerides Level 295 H < 150 mg/dL Cholesterol Level 140 < 200 mg/dL LDL Cholesterol 6 < 100 mg/dL HDL Cholesterol 84 H 40-59 mg/dL Thyroid Stimulating Hormone (TSH) 7.86 H 0.55-4.78 uIU/mL POC Glucose 75 70-106 mg/dl Test 05/24/24 18:16 05/24/24 16:45 05/24/24 14:50 Range/Units Lactic Acid Level 6.1 *H 9.6 *H 0.4-2.0 mmol/L White Blood Count 2.0 L 4.4-10.8 10^3/uL Red Blood Count 3.68 L 4.0-5.20 10^6/uL Hemoglobin 12.9 12.2-16.2 g/dL Hematocrit 40.5 36.0-46.0 % Mean Corpuscular Volume 110.0 H 80.0-100.0 fL Mean Corpuscular Hemoglobin 35.2 H 28.0-32.0 pg Mean Corpuscular Hemoglobin Concent 32.0 32.0-36.0 g/dL Red Cell Distribution Width 14.9 H 11.8-14.3 % Platelet Count 216 140-450 10^3/uL Mean Platelet Volume 8.5 6.9-10.8 fL Neutrophils (%) (Auto) 37.0-80.0 % Lymphocytes (%) (Auto) 10.0-50.0 % Monocytes (%) (Auto) 0.0-12.0 % Basophils (%) (Auto) 0.0-2.0 % Neutrophils # (Auto) 1.6-8.6 10 ^3/uL Lymphocytes # (Auto) 0.4-5.4 10 ^3/uL Monocytes # (Auto) 0-1.3 10 ^3/uL Differential Total Cells Counted 100.0 100 Neutrophils % (Manual) 48 37.0-80.0 Band Neutrophils % (Manual) 1 Lymphocytes % (Manual) 37 10.0-50.0 Monocytes % (Manual) 14 H 0-12 Eosinophils % (Manual) 0 0-7 Basophils % (Manual) 0 0.0-2.0 Metamyelocytes % (manual) 0 Myelocytes % (Manual) 0 Promyelocytes % (Manual) 0 Blast Cells % (Manual) 0 Reactive Lymphocytes 0 Platelet Estimate [place] Large Platelets Few B-Type Natriuretic Peptide 524.97 0-100 pg/mL Prothrombin Time 11.7 9.3-11.8 sec Prothrombin Time INR 1.12 0.9-1.15 Activated Partial Thromboplast Time 26.9 24.5-34.5 SEC D-Dimer, Quantitative 6.03 H 0.0-0.49 mg/L FEU Sodium Level 140 136-145 mmol/L Potassium Level 3.3 L 3.5-5.1 mmol/L Chloride Level 108 H 98-107 mmol/L Carbon Dioxide Level 11 L 20-31 mmol/L Anion Gap 21 H 5-15 Blood Urea Nitrogen 12 9-23 mg/dL Creatinine 1.19 H 0.550-1.02 mg/dL Glomerular Filtration Rate Calc 50 >90 mL/min BUN/Creatinine Ratio 10.1 10.0-20.0 Serum Glucose 116 H 74-106 mg/dL Calcium Level 8.6 L 8.7-10.4 mg/dL Magnesium Level 1.5 L 1.6-2.6 mg/dL Total Bilirubin 2.7 H 0.2-1.0 mg/dL Aspartate Amino Transferase (AST) 1400 H 13-40 U/L Alanine Aminotransferase (ALT) 428 H 7-40 U/L Alkaline Phosphatase 213 H 46-116 U/L Lactate Dehydrogenase 954 H 120-246 U/L Troponin I High Sensitivity 34 </=34 ng/L Total Protein 4.9 L 5.7-8.2 g/dL Albumin 2.9 L 3.2-4.8 g/dL Amylase Level 238 H 30-118 U/L Lipase 648 H 12-53 U/L Assessment Acute kidney injury in the setting of shock and hypotension No previous history of chronic kidney disease baseline renal function was normal in 2021 Acute respiratory failure Cardiac arrest Septic shock Anion gap metabolic acidosis Shock liver Patient has clear evidence of multiorgan failure Currently maxed out on multiple pressors and shows severe evidence of poor per fusion. Patient's current condition is not compatible with life and at this point her prognosis is grim she was currently on sodium bicarbonate for acidosis. Patient was not a candidate for hemodialysis Patient is hospice appropriate in his too unstable for any further medical treatments, recommend family discussion. Rest of care as per primary medical team Critically ill Plan discussed with: Other JEFRY SCHWARTZ MD May 26, 2024 11:52
[2024-05-26] MEDS: SODIUM BICARB 50mEq/50ml Vial 150 ML in D5W 5% 1,000 ML IV SCH (11:57)
--- NOTE | 2024-05-26 12:30 | DVH ---
INDICATION: BILATERAL RENAL US. GFR 24 TECHNIQUE: Multiple real-time sonographic images of the kidneys and bladder were obtained. COMPARISON: None FINDINGS: The right kidney measures 9 cm in length, which is normal in size. There is normal echogeni city of the right kidney. No hydronephrosis. The left kidney measures 8 cm in length, which is normal in size. There is normal echogenicity of the left kidney. No hydronephrosis. IMPRESSION: 1. Normal sonographic appearance of the kidneys. No hydronephrosis.
[2024-05-26] MEDS: VANCOMYCIN 750mg/150ml 150 ML IV ONE (13:00)
[2024-05-26] MEDS ORDERED: MORPHINE SULFATE INJ 2 MG/ml SYRG IV PRN (17:00)
[2024-05-26] MEDS ORDERED: LORazepam 2MG/ML-1ML VIAL IV PRN (17:00)
--- NOTE | 2024-05-26 21:06 | DVHNC2 ---
SANJEEVSTEPHONSANJEEV NGFloresita [facility] 05/26/242105: Procedure - Central Line Procedure Note Date and time: at 10:00 pm Indication: Vascular Access Central Line Location:Right Femoral Vein Procedure Manager Target: Salvador Patrick, Resident Attending Physician: Dr. Huang Procedure Summary: A time out was performed. My hands were washed immediately prior to the procedure. I wore a surgical cap, mask with protective eyewear, full gown and sterile gloves throughout the procedure. The patient was placed in Trendelenburg position, with head turned 30 degrees away from the insertion site. The Right ] groin was prepped usingchlorhexidine scrub and draped in sterile fashion using a three quarter sheet drape and sterile towels. Skin preparation was allowed to dry prior to skin puncture. Anatomic landmarks were identified. Anesthesia was achieved over the vein using 5 ml of 1% lidocaine. Using real-time ultrasound, with sterile probe cover and sterile gel, the Right Femoral Vein was identified on ultrasound using the linear ultrasound probe in the transverse orientation. The femoral artery was identified and avoided utilizing color-flow. The Femoral Vein was then placed in the center of the ultrasound field and compressed for patency. The introducer needle was inserted into the vein under direct ultrasound visualization, and a movement artifact was identified as the needle was advanced through the skin toward the vessel. A real-time hyperechoic signal revealed visualization of vascular needle entry into the lumen as blood was noted to flashback in the syringe. The needle was then held in place, the syringe was removed, and the guide wire was advanced through the needle. Direct visualization of the guide wire location within the vein was noted on ultrasound, indicating proper placement. The needle was then removed. A small incision was made at the skin surface with a scalpel, and a skin dilator was advanced over the guide wire. After appropriate dilation was obtained, the dilator was removed, and a triple-lumen catheter was then advanced over the guide wire into proper position. The guide wire was removed and discarded. The ports were aspirated, which showed good blood return, and then carefully flushed with normal saline. The catheter was stabilized and sutured to the skin with 2-0 silk at two anchor points. A sterile op-site was placed over the catheter and biopatch. The patient tolerated the procedure without any hemodynamic compromise. Estimated blood loss: 5 ml Post-procedure chest x-ray: Shows proper positioning of the catheter for use. ANGELICA BOWLES MD 05/27/24 1122: Date of Service: May 24, 2024 Billing Provider: ANGELICA BOWLES MD Common Visit Codes: PROCEDURE ONLY Procedure Codes: 28592-XMOARA NON-TUNNEL CV CATH SALVADOR PATRICK May 26, 2024 21:06 ANGELICA BOWLES MD May 27, 2024 11:22
--- NOTE | 2024-05-26 22:35 | DVHPN2 ---
Progress Note - Dictate Date Seen: May 26, 2024 Medical Necessity Reason Pt with a Central, PICC or Fol: Yes The following are medically ne: Zhong Catheter Reason for zhong catheter: Strict I&O Subjective Patient seen and examined at bedside. Intubated on mechanical ventilator. Overnight events reviewed. vital signs Vital Sign Date Time Temp Pulse Resp B/P (MAP) Pulse Ox O2 Delivery O2 Flow Rate FiO2 05/26/24 17:33 97.3 0 0 0 207.1 05/26/24 16:00 Mechanical Ventilator+ 60 60 05/25/24 20:00 Total Intake and Output 05/25/24 05/25/24 05/26/24 15:00 23:00 07:00 Intake Total 693.503 ml 1627.002 ml 2028.40 ml Output Total 60 ml Balance 693.503 ml 1627.002 ml 1968.40 ml objective Gen.: Patient lying in bed in medical ICU. Intubated on mechanical ventilator. Head: Normocephalic, atraumatic. Eyes: PERRLA. Ears: Normal external anatomy. Throat: Endotracheal tube and orogastric tube in place. Neck: Supple, trachea midline. Chest: Transmitted breath sounds bilaterally. Decreased air entry bilaterally. No wheezing. Bibasilar crackles. Cardiovascular: Positive S1, positive S2. Regular rate and rhythm. Abdomen: Positive bowel sounds in all 4 quadrants. Soft, nontender, nondistended. : Zhong in place. Normal external genitalia. Rectal: Deferred. Skin: Warm, dry. Intact. Extremities: 2+ radial pulses bilaterally. No lower extremity edema. Neuro: Off sedation laboratory and microbiology Laboratory Tests 05/26/24 09:43 Test 05/26/24 09:43 Range/Units Serum Glucose 33 *L 74-106 mg/dL Assessment/Plan Impression: Acute hypoxic respiratory failure On mechanical ventilator Autonomic instability Intractable nausea, vomiting, and diarrhea Blurry vision Dizziness Hypokalemia Elevated D-dimer Acute kidney injury Transaminitis, rule out pancreatitis Asthma Events: Currently on vent support On AC mode; RR 30, VT 450, PEEP 10, FiO2 70% Off sedation Patient is maxed on all pressors. On Levophed 30 mcg/min, Aniket-Synephrine 180 mcg/min, vasopressin 0.03 units/min, epinephrine 10 mcg/min. Titrate to keep MAP above 65 mmHg/SBP above 90 mmHg. S/p arterial line placement for hemodynamic monitoring Albumin x3 given ABG reviewed, notable for severe acidemia Ordered 2 grams bicarb IVP Cardiology recs appreciated Continue antibiotics Vitamin supplementation Continue bronchodilators Tube feeds for nutritional support Monitor lactic acid Head CT showed no intracranial hemorrhage or mass effect. Labs and imaging reviewed. Poor prognosis Family agreed for compassionate extubation/supportive care. Note, patient prior to compassionate extubation Family was notified. Plan: s/p intubation on mechanical ventilator. On AC mode; RR 30, VT 450, PEEP 10, FiO2 70% Titrate FIO2 to keep O2 saturation above 90%. VAP bundle. Daily ABG and CXR while intubated Off sedation since 05/25 AM. Chest, abdomen and pelvis CT reviewed; No pulmonary embolus or pulmonary artery hypertension. Bibasilar areas of atelectasis and small pleural effusions. Ascites, pericholecystic fluid. Mucosal thickening of the colon and small bowel may represent pancolitis. See report for full details. S/p triple-lumen central line placement S/p NGT Pressors for hemodynamic support Titrate to keep MAP above 65 mmHg/SBP above 90 mmHg. Antibiotics Antiemetics Pain control Monitor LFTs IV fluids Monitor renal function d/t DEMIAN Monitor electrolytes. Supplement as necessary. Monitor ins and outs. DVT prophylaxis. Prognosis: Poor given patient's multiple co-morbidities. Condition: Critical Rest of plan per hospitalist and other consultants. A total of 35 minutes of critical care time was spent reviewing the patient record, examining the patient, making a diagnostic and therapeutic plan, discussing this plan with the medical personnel, following up on diagnostic studies and following the patient for clinical stability excluding any and all procedures. At least 50% of this time was spent in direct, [id number] contact. Thank you, ALEJANDRINA Duque, for allowing me to participate in this patient's care. Further recommendations will depend on the patient's clinical course. Please do not hesitate to contact me if you have any questions or concerns. This medical document was created using an electronic medical record system with [employer] system. Although these documentations are being carefully reviewed, there may still be some phonetic and typographical changes. The errors are purely typographical, due to imperfection on the software program, and do not reflect any compromise in the patient's medical care. Plan discussed with: Other (COBY Crowe) Critical Care Time(min): 35 SHAWN GIL MD May 26, 2024 22:35
--- NOTE | 2024-05-26 23:31 | DVHPN2 ---
Progress Note - Dictate Date Seen: May 26, 2024 Medical Necessity Reason Pt with a Central, PICC or Fol: Yes The following are medically ne: Zhong Catheter Reason for zhong catheter: Strict I&O Subjective Patient was seen and evaluated in follow up in the ICU. Patient is intubated on ventilator 60%. Central lines was placed this evening. Patient is maxed on all pressors. On Levophed 30 mcg/min, Aniket-Synephrine 180 mcg/min, vasopressin 0.03 units/min, epinephrine 10 mcg/min. Chest x-ray shows interval improvement in bilateral pulmonary airspace disease and pulmonary vascular congestion. Interval resolution of subcutaneous emphysema within the right neck. Echocardiogram.an EF of only 20%. vital signs Vital Sign Date Time Temp Pulse Resp B/P (MAP) Pulse Ox O2 Delivery O2 Flow Rate FiO2 05/26/24 17:33 97.3 0 0 0 207.1 05/26/24 16:00 Mechanical Ventilator+ 60 60 05/25/24 20:00 Total Intake and Output 05/25/24 05/25/24 05/26/24 15:00 23:00 07:00 Intake Total 693.503 ml 1627.002 ml 2028.40 ml Output Total 60 ml Balance 693.503 ml 1627.002 ml 1968.40 ml medications Current Medications Medications Dose Ordered Sig/Saji Route Start Time Stop Time Status Last Admin Dose Admin Ondansetron HCl 4 mg Q4HP PRN IV 05/24/24 17:15 Acetaminophen 650 mg Q6HP PRN PO 05/24/24 17:15 Piperacillin Sod/ Tazobactam Sod 100 ml @ 25 mls/hr Q8HR IV 05/24/24 22:00 05/26/24 14:14 25 MLS/HR Enoxaparin Sodium 80 mg Q12HR SC 05/24/24 22:00 05/25/24 00:36 80 MG Pantoprazole Sodium 40 mg DAILY IV 05/25/24 10:00 05/26/24 10:02 40 MG Acetaminophen/ Hydrocodone Bitart 1 tab Q4HPRN PRN PO 05/24/24 18:00 Propofol 100 ml @ 2.325 mls/ hr Q24H IV 05/24/24 21:45 05/25/24 07:11 2.325 MLS/HR Midazolam HCl 50 ml @ 1 mls/hr Q24H IV 05/24/24 21:45 05/24/24 22:10 1 MLS/HR Fentanyl Citrate 250 ml @ 2.5 mls/hr Q24H IV 05/24/24 21:45 05/25/24 07:30 2.5 MLS/HR Vancomycin HCl 0 ml @ 0 mls/hr UD IV 05/24/24 21:45 Thiamine HCl 100 mg DAILY IV 05/25/24 10:00 05/25/24 10:13 100 MG Folic Acid 1 mg/ Dextrose 50.2 ml @ 200.8 mls/ hr DAILY INJ 05/25/24 10:00 05/25/24 12:45 200.8 MLS/HR Vasopressin 20 units/Sodium Chloride 100 ml @ 9 mls/hr Q11H7M IV 05/24/24 22:45 05/26/24 04:30 9 MLS/HR Hydrocortisone Sodium Succinate 100 mg Q8H IV 05/25/24 09:00 05/26/24 17:13 100 MG Albuterol 2.5 mg Q4HP PRN NEB 05/25/24 01:00 05/26/24 03:17 2.5 MG Ipratropium [place] 0.5 mg Q4HR NEB 05/25/24 02:00 05/26/24 03:17 0.5 MG Phenylephrine HCl 80 mg/Sodium Chloride 250 ml @ 7.5 mls/hr Q24H IV 05/25/24 07:45 05/25/24 23:15 33.75 MLS/HR Norepinephrine Bitartrate 32 mg/ Sodium Chloride 250 ml @ 0.938 mls/ hr Q24H IV 05/25/24 07:45 05/26/24 00:48 14.063 MLS/HR Epinephrine HCl 16 mg/Dextrose 250 ml @ 1.875 mls/ hr Q24H IV 05/25/24 07:45 05/26/24 10:19 9.375 MLS/HR Sodium Bicarbonate 150 ml/Dextrose 1,150 ml @ 70 mls/hr [id number] IV 05/26/24 10:00 05/26/24 11:57 70 MLS/HR Albumin Human 50 ml @ 100 mls/hr Q8H IV 05/26/24 10:00 05/27/24 02:29 05/26/24 11:27 100 MLS/HR Dextrose/Sodium Chloride 1,000 ml @ 100 mls/hr Q10H IV 05/26/24 11:15 05/26/24 11:28 100 MLS/HR Morphine Sulfate 2 mg Q1HP PRN IV 05/26/24 17:00 Lorazepam 1 mg Q2HP PRN IV 05/26/24 17:00 objective GENERAL: Ill appearing, intubated on ventilator. Obese. LUNGS: Diminished breath sounds. CARDIOVASCULAR: Heart sounds are good. ABDOMEN: Soft. laboratory and microbiology Laboratory Tests 05/26/24 09:43 Test 05/26/24 09:43 Range/Units Serum Glucose 33 *L 74-106 mg/dL Problem List CPR with ROSC. Sepsis with shock. Syncope and collapse, to rule out cardiac etiology. Elevated troponin, possible due to above. Elevated BNP. Dyslipidemia. Transaminitis, likely due to ETOH abuse. Positive D-dimer, PE ruled out. DEMIAN on CKD. Assessment/Plan Continued all current supportive medical care. IVFs. IV antibiotics as ordered. Vasopressors for hemodynamic support. Additional plan as per the hospital course. Critical care time of 45 minutes provided to include time spent evaluation of patient at bedside, when appropriate patient/family education for diagnosis, treatment plan, review of pertinent medical information and discussion of care with specialty providers and PCP. Mechanical ventilator parameters, treatment and adjustments have personally been reviewed by me and treatment plan by termite exterminator has also been reviewed. Plan discussed with: Other ERICK SILVER MD May 26, 2024 20:53
--- NOTE | 2024-05-28 07:11 | ECG ---
[facility] Test Date: 2024-05-24 Test Time: 21:19:58 Pat Name: BRI FLORES Department: ED Room: [address] [place] [address] Gender: F Grounds Manager: LARS : 1955 Requested By: ONELIA OLSEN Order Number: [id number] Reading MD: Marck Morse Measurements Intervals [place] Rate: 111 P: 81 AL: 175 QRS: -13 QRSD: 73 T: 46 QT: 328 QTc: 446 Interpretive Statements Sinus tachycardia Low voltage, extremity and precordial leads Probable anteroseptal infarct, old Baseline wander in lead(s) II,III,aVF Electronically Signed On 05-29-2024 21:15:04 PDT by Marck Morse Please click the below link to view image of tracing.
== END 2024-05-26 17:33 | DRG 871 ==
LOC: EDBD 13:51 → ER 13:55 → OVERFLOW 17:12
PROC: 0BH17EZ Insertion of Endotracheal Airway into Trachea, Via Natural or Artificial Opening (ICD-10-PCS; principal; 2024-05-24)
PROC: 5A1945Z Respiratory Ventilation, 24-96 Consecutive Hours (ICD-10-PCS; 2024-05-24)
PROC: 5A12012 Performance of Cardiac Output, Single, Manual (ICD-10-PCS; 2024-05-24)
PROC: 06HY33Z Insertion of Infusion Device into Lower Vein, Percutaneous Approach (ICD-10-PCS; 2024-05-24)
PROC: B54BZZA Ultrasonography of Right Lower Extremity Veins, Guidance (ICD-10-PCS; 2024-05-24)
PROC: 03HY32Z Insertion of Monitoring Device into Upper Artery, Percutaneous Approach (ICD-10-PCS; 2024-05-25)
DX: A41.9 Sepsis, unspecified organism (principal); G92.8 Other toxic encephalopathy; J96.01 Acute respiratory failure with hypoxia; K72.00 Acute and subacute hepatic failure without coma; R65.21 Severe sepsis with septic shock; N17.9 Acute kidney failure, unspecified; R18.8 Other ascites; J98.11 Atelectasis; G93.1 Anoxic brain damage, not elsewhere classified; D61.818 Other pancytopenia; E87.29 Other acidosis; Z66 Do not resuscitate; Z20.822 Contact with and (suspected) exposure to COVID-19; I46.9 Cardiac arrest, cause unspecified; G89.29 Other chronic pain; M79.7 Fibromyalgia; E78.00 Pure hypercholesterolemia, unspecified; E66.9 Obesity, unspecified; M54.9 Dorsalgia, unspecified; H40.9 Unspecified glaucoma; J44.9 Chronic obstructive pulmonary disease, unspecified; R29.6 Repeated falls; G90.89 Other disorders of autonomic nervous system; E03.9 Hypothyroidism, unspecified; M54.50 Low back pain, unspecified; R74.8 Abnormal levels of other serum enzymes; F10.10 Alcohol abuse, uncomplicated; Y90.9 Presence of alcohol in blood, level not specified; I12.9 Hypertensive chronic kidney disease with stage 1 through stage 4 chronic kidney disease, or unspecified chronic kidney disease; N18.9 Chronic kidney disease, unspecified; E87.6 Hypokalemia; R79.89 Other specified abnormal findings of blood chemistry; Z88.1 Allergy status to other antibiotic agents; Z91.040 Latex allergy status; Z79.899 Other long term (current) drug therapy; Z79.2 Long term (current) use of antibiotics; Z98.891 History of uterine scar from previous surgery; Z83.3 Family history of diabetes mellitus; Z88.0 Allergy status to penicillin; Z68.30 Body mass index [BMI] 30.0-30.9, adult; Z82.49 Family history of ischemic heart disease and other diseases of the circulatory system
CPT/HCPCS: 31500; 36415; 36556; 36600; 36620; 70450; 71045; 71260; 74177; 76705; 76775; 80048; 80053; 80061; 80202; 80307; 81001; 82150; 82565; 82607; 82805; 82962; 83010; 83605; 83615; 83690; 83735; 83880; 84100; 84443; 84484; 85007; 85025; 85027; 85379; 85610; 85730; 87040; 87070; 87077; 87086; 87186; 87205; 87426; 87804; 93005; 93306; 93970; 94002; 94003; 94640; 96361; 96365; 99291; G0378; J0171; J2405; J2470; J2543; J2704; J3480; J7060